=== PATIENT | female | born 1975 | race Caucasian/White ===

== ENCOUNTER 2020-08-14 14:19 | Emergency (ER) | payer OTHER, SELFPAY ==
--- NOTE | ~2020-08-14 | XR_ITS ---
EXAMINATION: XR CHEST CLINICAL INFORMATION: Shortness of breath COMPARISON: 08/23/2015 TECHNIQUE: Frontal view of the chest was obtained. FINDINGS: No significant abnormality is noted involving the heart, lungs, mediastinum, bony thorax or soft tissues. XR/XR chest 1V IMPRESSION: Unremarkable examination.
[2020-08-14 14:21] VITALS: BP 122/68; PULSE 94; RESP 16; TEMP 36.8; O2SAT 100; BMI 27.8
--- NOTE | 2020-08-14 15:51 | ECG_ITS ---
Test Reason : SOB Blood Pressure : / mmHG Vent. Rate : 070 BPM Atrial Rate : 070 BPM P-R Int : 126 ms QRS Dur : 082 ms QT Int : 378 ms P-R-T Axes : 041 043 043 degrees QTc Int : 408 ms Normal sinus rhythm Normal ECG When compared with ECG of 30-APR-2011 02:50, No significant change was found Referred By: Georgina Macario Electronically Signed By:GILBERTO TAYLOR
--- NOTE | 2020-08-14 15:53 | ED_ITS ---
HPI - SOB/Dyspnea General Chief Complaint: Dyspnea Stated Complaint: SOB Time Seen by Provider: 08/14/20 15:16 Source: patient Mode of arrival: ambulatory Limitations: no limitations History of Present Illness HPI Narrative: Patient comes emergency room complaining of shortness of breath. Patient states it started 1 month ago when she was diagnosed with COVID. Since then, patient states that she feels that she cannot catch a full breath, gets worse with exertion. Patient denies chest pain, no dizziness. MD elicited complaint: shortness of breath Related Data Home Medications Medication Instructions Recorded Confirmed cyanocobalamin (vitamin B-12) 1,000 mcg PO DAILY 03/11/20 03/11/20 [Vitamin B-12] ferrous sulfate 325 mg PO DAILY 03/11/20 03/11/20 Allergies Allergy/AdvReac Type Severity Reaction Status Date / Time acetaminophen [Percocet] Allergy Unknown Increased Verified 03/11/20 16:36 heart rate, itchy oxycodone [From Percocet] Allergy Unknown ITCHING Verified 03/11/20 16:36 Review of Systems Review of Systems: Constitutional : No Weight loss, No Fever, No Chills, No Night Sweats, No Fatigue, No Malaise ENT/Mouth : No Hearing loss, No Ear Pain, No Nasal Congestion, No Sinus Pain, No Hoarseness, No sore throat, No Rhinorrhea, No Swallowing Difficulty Eyes: No Eye Pain, No Swelling, No Redness, No Foreign Body, No Discharge, No Vision Changes Cardiovascular : No Chest Pain, No SOB, No Dyspnea on Exertion, No Orthopnea, No Edema, No Palpitations Respiratory : No Cough, No Sputum, No Wheezing, No Smoke Exposure, complaining of chronic dyspnea Gastrointestinal : No Nausea, No Vomiting, No Diarrhea, No Constipation, No abdominal Pain, No Hematochezia, No Melena Genitourinary : no irregular bleeding, No Dysuria, No Urinary Frequency, No Hematuria, No Urinary Incontinence, No Urgency, No Flank Pain, No Urinary Flow Changes, No Hesitancy Musculoskeletal : No joint pain, No Myalgias, No Joint Swelling Skin : No Skin Lesions, No rash Neuro : No Weakness, No Numbness, No Paresthesias, No Loss of Consciousness, No Dizziness, No Headache Psych : No Anxiety/Panic, No Depression, No SI/HI/AH/VH, No Social Issues, Heme/Lymph: No Bruising, No Bleeding,No Lymphadenopathy Endocrine : No Polyuria, No Polydipsia, No Temperature Intolerance [facility] Past Medical History Medical History COVID-19 Low iron Social History Social History Advance Directives: No Advance Directives Information Provided: Yes Physical Exam Vital Signs: Vital Signs: Last Vital Signs Temp 97.9 F 08/14/20 16:18 Pulse 77 08/14/20 16:18 Resp 18 08/14/20 16:18 BP 103/64 08/14/20 16:18 Pulse Ox 98 08/14/20 16:18 Body Mass Index 27.8 Appearance: Alert. Oriented X3. No acute distress. Eyes: Pupils equal, round and reactive to light. ENT: Pharynx normal. Neck: Normal inspection. Neck supple. No lymph nodes noted. No crepitus CVS: Normal heart rate and rhythm. Pulses normal. Normal S1 and S2 Respiratory: No respiratory distress. Breath sounds normal. No Wheezing. No rales Abdomen: Soft and nontender. No rigidity. No distention. good BS x4 Skin: Skin warm and dry. Normal skin color. Normal skin turgor. Extremities: No lower extremity edema. No lower extremity edema. No Lacerations. No Rash Neuro: Oriented X 3. No motor deficit. No sensory deficit. Moving all extermities. No slurred speech. Course Course Course Narrative: Patient's labs are pending. Depending on the D-dimer result, patient may need a CTA for PE study. Otherwise, patient likely to be discharged home. Sign-out given to Dr. Dey MDM - SOB/Dyspnea Lab Data Result diagrams: 08/14/20 16:07 08/14/20 16:07 Labs: Lab Results 08/14/20 Range/Units 16:07 WBC 4.6 L (4.8-10.8) X10*3/uL RBC 4.58 (4.20-5.50) X10*6/uL Hgb 13.9 (12.0-16.0) g/dl Hct 42.8 (37-47) % MCV 93.4 (80-98) fL MCH 30.3 (27.0-33.0) pg MCHC 32.5 (31.0-35.0) g/dl RDW 11.6 (11.0-16.0) % Plt Count 249 D (160-400) X10*3/uL MPV 10.5 (9.4-12.3) fL Immature Gran % (Auto) 0.7 H (0.0-0.4) % Neut % (Auto) 72.8 (45-73) % Lymph % (Auto) 18.1 L (20-40) % [place] % (Auto) 7.8 (2-11) % Eos % (Auto) 0.4 (0-4) % Baso % (Auto) 0.2 (0-2) % Lymph # (Auto) 0.8 L (1.2-4.9) X10*3/uL [place] # (Auto) 0.4 (0.1-1.2) X10*3/uL Eos # (Auto) 0.0 (0.0-0.4) X10*3/uL Baso # (Auto) 0.0 (0.0-0.2) X10*3/uL Abs Immat Gran (auto) 0.03 (0.00-0.03) X10*3/uL Absolute Neuts (auto) 3.3 (2.0-8.3) X10*3/uL Absolute Nucleated RBC 0.000 (0.0-0.012) X10*3/uL Nucleated RBC % (auto) 0.0 (0.0-0.2) /100WBC Imaging Data Chest x-ray: Radiologist's impression: FINDINGS: No significant abnormality is noted involving the heart, lungs, mediastinum, bony thorax or soft tissues. XR/XR chest 1V IMPRESSION: Unremarkable examination ECG Data Attestation: I personally reviewed and interpreted this ECG as follows: (Sinus rhythm, heart rate 70, no ST segment depressions or elevations, no T-wave inversions) Discharge Plan Discharge Clinical Impression: Chronic dyspnea Prescriptions: No Action cyanocobalamin (vitamin B-12) [Vitamin B-12] 1,000 mcg tablet 1,000 mcg PO DAILY RF: 0 ferrous sulfate 325 mg (65 mg iron) tablet 325 mg PO DAILY RF: 0
[2020-08-14 16:12] LABS: MANUAL DIFF FLAG NO
[2020-08-14 16:14] LABS: Basophils Percent Auto 0.2 % (0-2); Eosinophils Percent Auto 0.4 % (0-4); Hematocrit 42.8 % (37-47); Hemoglobin 13.9 g/dl (12.0-16.0); Imm Gran Abs Auto 0.03 X10*3/uL (0.00-0.03); Imm Gran Pct Auto 0.7 % (0.0-0.4); Lymphocytes Absolute Auto 0.8 X10*3/uL (1.2-4.9); Lymphocytes Percent Auto 18.1 % (20-40); Mean Corpuscular HGB Conc 32.5 g/dl (31.0-35.0); Mean Corpuscular Hemoglobin 30.3 pg (27.0-33.0); Mean Corpuscular Volume 93.4 fL (80-98); Mean Platelet Volume 10.5 fL (9.4-12.3); Monocytes Absolute Auto 0.4 X10*3/uL (0.1-1.2); Monocytes Percent Auto 7.8 % (2-11); Neutrophils Absolute Auto 3.3 X10*3/uL (2.0-8.3); Neutrophils Percent Auto 72.8 % (45-73); Platelet Count 249 X10*3/uL (160-400); Red Blood Count 4.58 X10*6/uL (4.20-5.50); Red Cell Distribution Width 11.6 % (11.0-16.0); White Blood Count 4.6 X10*3/uL (4.8-10.8)
[2020-08-14 16:18] VITALS: BP 103/64; PULSE 77; RESP 18; TEMP 36.6; O2SAT 98
[2020-08-14 16:30] LABS: D Dimer 228 NG/ML
[2020-08-14 16:40] LABS: Anion Gap 10 (12-20); Blood Urea Nitrogen 8 mg/dL (9-16); Calcium 8.5 mg/dL (8.4-10.2); Carbon Dioxide 30 mmol/L (22-29); Chloride 105 mmol/L (96-108); Creatinine Clr Calc Pharmacy 137.3; Estimated Glomerular Filt Rate > 60; Glucose Random 71 mg/dL (60-115); Potassium 4.2 mmol/L (3.3-5.1); Sodium 141 mmol/L (135-145)
[2020-08-14 16:49] LABS: B Type Natriuretic Peptide 89 pg/mL (<100)
[2020-08-14 17:05] LABS: Influenza A PCR NEGATIVE (Negative); Influenza B PCR NEGATIVE (Negative); Resp Syncy Virus RNA Qual PCR NEGATIVE (Negative); SARS COV2 PCR INHOUSE POSITIVE (Negative)
[2020-08-14] MEDS: dexAMETHasone 6 MG TABLET PO (18:14)
[2020-08-14 18:28] LABS: C Reactive Protein 0.13 mg/dL (< or = 0.50); Lactate Dehydrogenase 178 U/L (122-220)
== END 2020-08-14 18:16 | disposition home or self-care (01) ==
PROVIDERS: Internal Medicine; Emergency Provider Emergency Medicine; PCP Physician Assistant
DX: U07.1 COVID-19 (principal); R06.00 Dyspnea, unspecified
CPT/HCPCS: 0241U; 36415; 71045; 80048; 83615; 83880; 85025; 85379; 86140; 93005; 99283; J8540

== ENCOUNTER → 2020-09-16 15:30 | Outpatient (BNV) | payer OTHER, SELFPAY | PROVIDERS: PCP Physician Assistant; Visit Provider Internal Medicine Medical Oncology | DX: D64.9 Anemia, unspecified (principal); D61.818 Other pancytopenia | CPT/HCPCS: 99213; 99214 ==

== ENCOUNTER 2021-01-13 11:31 | Outpatient (REF) | payer OTHER, SELFPAY ==
--- NOTE | ~2021-01-13 | XR_ITS ---
EXAMINATION: XR LUMBOSACRAL SPINE CLINICAL INFORMATION: Low back pain. COMPARISON: CT abdomen and pelvis 04/13/2008. TECHNIQUE: Three views of the lumbosacral spine. FINDINGS: There is normal lumbar segmentation with 5 nonrib-bearing lumbar vertebrae of normal height and normal lumbar lordosis. There is no lumbar vertebral compression, spondylolisthesis, or destructive process. There is borderline disc narrowing L3-L4 with borderline anterior vertebral spur. No erosive change. Visualized sacrum and SI joints are unremarkable. XR/XR lumbar spine 2-3V IMPRESSION: 1. No lumbar vertebral compression or spondylolisthesis. 2. Borderline disc narrowing L3-L4. No erosive change.
--- NOTE | ~2021-01-13 | XR_ITS ---
EXAMINATION: XR SACROILIAC JOINTS CLINICAL INFORMATION: Sacrococcygeal disorders, not elsewhere classified. Low back pain. COMPARISON: Radiographs lumbar spine 01/13/2021, CT abdomen and pelvis 04/13/2008 TECHNIQUE: 3 views of the sacroiliac joints FINDINGS: There is normal bony mineralization. No fracture. No destructive process. The SI joints show no erosive change or subchondral sclerosis or ankylosis. No diastasis. Some fine chain melissa are present right lower quadrant abdomen. XR/XR sacroiliac joint 1-2V IMPRESSION: Normal sacroiliac joints.
--- NOTE | ~2021-01-13 | XR_ITS ---
EXAMINATION: XR KNEE, RIGHT XR KNEE, LEFT CLINICAL INFORMATION: Knee pain. COMPARISON: Standing AP knees radiograph 01/06/2019, radiographs right knee 11/12/2018. TECHNIQUE: Each knee is imaged in 4 views. There are total of 8 views. FINDINGS: Right: There is no fracture, dislocation, destructive process. No knee joint compartment narrowing or erosive change or chondrocalcinosis. Hoffa's fat pad appears normal. There is stable mineralization anterior joint possibly a dilatation in the transverse meniscal ligament, stable from prior exam 2019. There is a small round benign calcification in the anterior soft tissues, also noted on the contralateral side. The deep infrapatellar recess is preserved. Left: There is no fracture, dislocation, destructive process. There is no joint narrowing or erosive change. Moderate chondrocalcinosis involves the medial and lateral menisci, also noted in 2019. There is no suprapatellar effusion. Hoffa's fat pad is unremarkable. There are some benign round calcifications in the anterior knee soft tissues. XR/XR knee LT 4V IMPRESSION: 1. Right: No joint narrowing or erosive change. No effusion. 2. Left: Chronic meniscal chondrocalcinosis is similar to 2019. No interval joint narrowing, erosive change, or effusion.
--- NOTE | ~2021-01-13 | XR_ITS ---
EXAMINATION: XR KNEE, RIGHT XR KNEE, LEFT CLINICAL INFORMATION: Knee pain. COMPARISON: Standing AP knees radiograph 01/06/2019, radiographs right knee 11/12/2018. TECHNIQUE: Each knee is imaged in 4 views. There are total of 8 views. FINDINGS: Right: There is no fracture, dislocation, destructive process. No knee joint compartment narrowing or erosive change or chondrocalcinosis. Hoffa's fat pad appears normal. There is stable mineralization anterior joint possibly a dilatation in the transverse meniscal ligament, stable from prior exam 2019. There is a small round benign calcification in the anterior soft tissues, also noted on the contralateral side. The deep infrapatellar recess is preserved. Left: There is no fracture, dislocation, destructive process. There is no joint narrowing or erosive change. Moderate chondrocalcinosis involves the medial and lateral menisci, also noted in 2019. There is no suprapatellar effusion. Hoffa's fat pad is unremarkable. There are some benign round calcifications in the anterior knee soft tissues. XR/XR knee RT 4V IMPRESSION: 1. Right: No joint narrowing or erosive change. No effusion. 2. Left: Chronic meniscal chondrocalcinosis is similar to 2019. No interval joint narrowing, erosive change, or effusion.
--- NOTE | ~2021-01-13 | XR_ITS ---
EXAMINATION: XR FOOT, RIGHT CLINICAL INFORMATION: Pain in right foot. COMPARISON: None. TECHNIQUE: AP, lateral, and oblique views of the right foot. FINDINGS: Normal bony mineralization. No acute or healing fracture, dislocation, or destructive process. There is no focal joint narrowing or erosive change. The retrocalcaneal recess is preserved. The subtalar joint is unremarkable. XR/XR foot RT 2V IMPRESSION: Normal right foot.
== END 2021-01-13 11:32 | disposition home or self-care (01) ==
LOC: HO.XRAY 11:31
PROVIDERS: PCP Physician Assistant; Visit Provider Physician Assistant
DX: M79.671 Pain in right foot (principal); M25.561 Pain in right knee; M25.562 Pain in left knee; M54.5 Low back pain; M53.3 Sacrococcygeal disorders, not elsewhere classified
CPT/HCPCS: 72100; 72200; 73564; 73620

== ENCOUNTER 2021-05-03 14:15 | Emergency (ER) | payer OTHER, SELFPAY ==
--- NOTE | ~2021-05-03 | XR_ITS ---
EXAMINATION: XR HAND, RIGHT CLINICAL INFORMATION: Thumb injury COMPARISON: None TECHNIQUE: PA, lateral, and oblique views of the right hand. FINDINGS: The bones and soft tissues are normal. No fracture. Alignment is anatomic. Joint spaces are maintained. No erosions or soft tissue calcifications. XR/XR hand RT 2V IMPRESSION: Normal right hand.
[2021-05-03 15:48] VITALS: BP 126/74; PULSE 92; RESP 18; TEMP 36.3; O2SAT 100; BMI 29.9
[2021-05-03] MEDS: Ibuprofen 600 MG TABLET PO (15:54)
[2021-05-03 16:55] VITALS: BP 124/71; PULSE 77; RESP 16; O2SAT 98
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
== END 2021-05-03 17:40 | disposition home or self-care (01) ==
PROVIDERS: Emergency Provider Internal Medicine; PCP Physician Assistant
DX: S39.92XA Unspecified injury of lower back, initial encounter (principal); S69.91XA Unspecified injury of right wrist, hand and finger(s), initial encounter; V43.02XA Car driver injured in collision with other type car in nontraffic accident, initial encounter; Y93.9 Activity, unspecified; Y92.9 Unspecified place or not applicable; Y99.9 Unspecified external cause status; Z79.899 Other long term (current) drug therapy; Z87.891 Personal history of nicotine dependence
CPT/HCPCS: 73120; 99283; 99284

== ENCOUNTER 2021-07-28 08:38 | Outpatient (REF) | payer OTHER, SELFPAY ==
--- NOTE | ~2021-07-28 | MM_ITS ---
EXAMINATION: MM SCREENING DIGITAL BREAST TOMOSYNTHESIS, BILATERAL CLINICAL INFORMATION: Screening. Asymptomatic. The lifetime risk of breast cancer based on the Tyrer-Cuzick Model is 7%. COMPARISON: Mammography: 06/15/2016 TECHNIQUE: Digital breast tomosynthesis is performed in both the craniocaudal and mediolateral oblique views along with computer-aided detection (CAD). Synthesized 2D images are generated from the tomosynthesis. (Baseline) FINDINGS: The breasts are heterogeneously dense, which may obscure small masses (ACR BI-RADS breast composition Category c). There are no significant masses, abnormal calcifications, or other abnormalities. Parenchymal distribution is similar to baseline exam. No interval mass or architectural abnormality. No suspicious changes. MM/MM tomosynthesis screening BI IMPRESSION: No mammographic evidence of malignancy. ASSESSMENT: BI-RADS 1: Negative RECOMMENDATION: Routine annual mammography screening. This patient's information was entered into a reminder system with a target due date for their next mammogram.
== END 2021-07-28 08:39 | disposition home or self-care (01) ==
LOC: HO.MAMMO 08:38
PROVIDERS: PCP Physician Assistant; Visit Provider Physician Assistant
DX: Z12.31 Encounter for screening mammogram for malignant neoplasm of breast (principal)
CPT/HCPCS: 77063; 77067

== ENCOUNTER 2021-08-24 15:17 | Outpatient (REF) | payer OTHER, SELFPAY ==
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
--- NOTE | ~2021-08-24 | XR_ITS ---
EXAMINATION: XR cervical spine min 6V, XR lumbar spine 4V min CLINICAL INFORMATION: Trauma, pain COMPARISON: None TECHNIQUE: 5 views of the cervical spine and 5 views of the lumbar spine XR/XR cervical spine min 6V FINDINGS/IMPRESSION: CERVICAL SPINE: The cervical spine is visualized to the level of C7 on the lateral view. Loss of the usual cervical spine lordosis which may be due to positioning or muscle spasm. Vertebral body heights are maintained. Lateral masses of C1 are well aligned on C2. Visualized portion of the dens is intact. Mild degenerative disc disease at C6-C7, manifested by borderline loss of disc space height, facet arthropathy and a small anterior disc osteophyte complex.. Uncovertebral hypertrophy and facet arthropathy results in mild neural foraminal narrowing on the right at C3-C4. No prevertebral soft tissue swelling. LUMBAR SPINE: 5 nonrib-bearing lumbar-type vertebral bodies. Vertebral body heights are maintained. Minimal dextroconvex curvature of the thoracolumbar spine. Possible right L5 pars defect, which could be confirmed with CT if warranted. Minimal degenerative disc disease at L5-S1 with borderline loss of disc space height and facet arthropathy. Left upper abdominal surgical clips.
--- NOTE | ~2021-08-24 | XR_ITS ---
EXAMINATION: XR shoulder RT min 2V CLINICAL INFORMATION: Reason for Exam IMPINGEMENT SYNDROME OF RIGHT SHOULDER COMPARISON: None TECHNIQUE: Four views of the shoulder. XR/XR shoulder RT min 2V FINDINGS/IMPRESSION: No acute fracture or dislocation. Mild degenerative changes of the acromioclavicular joint with borderline loss of joint space. Glenohumeral joint space is maintained. Soft tissues are unremarkable. Visualized portion of lung appears clear.
== END 2021-08-24 15:18 | disposition home or self-care (01) ==
LOC: HO.XRAY 15:17
PROVIDERS: PCP Physician Assistant; Visit Provider Student in an Organized Health Care Education/Training Program
DX: M54.50 Low back pain, unspecified (principal); M75.41 Impingement syndrome of right shoulder; M54.2 Cervicalgia
CPT/HCPCS: 72052; 72110; 73030

== ENCOUNTER 2022-07-31 09:54 | Outpatient (REF) | payer OTHER, SELFPAY ==
--- NOTE | ~2022-07-31 | MM_ITS ---
EXAMINATION: MM SCREENING DIGITAL BREAST TOMOSYNTHESIS, BILATERAL CLINICAL INFORMATION: Screening. Asymptomatic. The lifetime risk of breast cancer based on the Tyrer-Cuzick Model is 10%. COMPARISON: Mammography: 07/28/2021, 06/15/2016 TECHNIQUE: Digital breast tomosynthesis is performed in both the craniocaudal and mediolateral oblique views along with computer-aided detection (CAD). Synthesized 2D images are generated from the tomosynthesis. FINDINGS: The breasts are heterogeneously dense, which may obscure small masses (ACR BI-RADS breast composition Category c). There are no significant masses, abnormal calcifications, or other abnormalities. No architectural abnormality or developing density or significant change from prior studies. The axilla and skin contours are unremarkable. MM/MM tomosynthesis screening BI IMPRESSION: No mammographic evidence of malignancy. ASSESSMENT: BI-RADS 1: Negative RECOMMENDATION: Routine annual mammography screening. This patient's information was entered into a reminder system with a target due date for their next mammogram.
== END 2022-07-31 09:55 | disposition home or self-care (01) ==
LOC: HO.MAMMO 09:54
PROVIDERS: PCP Physician Assistant; Visit Provider Physician Assistant
DX: Z12.31 Encounter for screening mammogram for malignant neoplasm of breast (principal)
CPT/HCPCS: 77063; 77067

== ENCOUNTER 2022-10-30 12:54 | Outpatient (REF) | payer OTHER, SELFPAY ==
--- NOTE | ~2022-10-30 | US_ITS ---
EXAMINATION: US RETROPERITONEAL COMPLETE (RENAL) CLINICAL INFORMATION: Dysuria and right flank pain. COMPARISON: None available. TECHNIQUE: Real-time imaging of the kidneys and bladder. FINDINGS: RIGHT KIDNEY: 13.4 x 4.7 x 5.9 cm (SAG x AP x TRV). The kidney is normal in size, contour, and echogenicity. Renal cortical thickness is normal. No calculi or focal parenchymal lesions. No hydronephrosis. LEFT KIDNEY: 12.5 x 5.8 x 6.2 cm (SAG x AP x TRV). The kidney is normal in size, contour, and echogenicity. Renal cortical thickness is normal. No calculi or focal parenchymal lesions. No hydronephrosis. BLADDER: Well distended and normal. Bilateral ureteral jets are demonstrated. Prevoid bladder volume is 184 mL. Postvoid bladder volume is 17 mL. Thickened heterogeneous endometrium. Endometrial thickness measures 2.2 cm. There are small central cystic areas. US/US retroperitoneal comp IMPRESSION: Normal renal and bladder ultrasound. Abnormally thickened heterogeneous endometrium. Follow-up pelvic ultrasound recommended..
== END 2022-10-30 12:55 | disposition home or self-care (01) ==
LOC: HO.HMGCX 12:54
PROVIDERS: PCP Physician Assistant; Visit Provider Nurse Practitioner Family
DX: R30.0 Dysuria (principal); R10.9 Unspecified abdominal pain
CPT/HCPCS: 76770

== ENCOUNTER 2022-11-07 11:53 | Outpatient (REF) | payer OTHER, SELFPAY ==
[2022-11-09 22:54] LABS: HPV mRNA E6/E7 rflx Not Detected (Not Detected)
== END 2022-11-07 11:54 | disposition home or self-care (01) ==
LOC: HO.LNP 11:53
PROVIDERS: PCP Physician Assistant; Visit Provider Obstetrics & Gynecology
DX: Z12.4 Encounter for screening for malignant neoplasm of cervix (principal); Z11.51 Encounter for screening for human papillomavirus (HPV); N85.00 Endometrial hyperplasia, unspecified; R93.5 Abnormal findings on diagnostic imaging of other abdominal regions, including retroperitoneum
CPT/HCPCS: 87624; 88142; 99202

== ENCOUNTER 2022-11-30 10:47 | Outpatient (REF) | payer OTHER, SELFPAY ==
--- NOTE | ~2022-11-30 | US_ITS ---
EXAMINATION: US PELVIS CLINICAL INFORMATION: Endometrial hyperplasia. COMPARISON: None available. TECHNIQUE: Ultrasound of the pelvis is performed using both transabdominal and transvaginal transducers along with Doppler. Transvaginal imaging is performed due to inadequate visualization transabdominally. FINDINGS: Uterus: The uterus is anteverted and measures 9.1 x 5.2 x 6.5 cm. The double wall endometrial thickness is 2.8 cm. The endometrial stripe is heterogeneous in echotexture. A 1.5 x 1.1 x 1.5 cm heterogeneous echotexture endometrial polyp is seen, with associated color Doppler flow. The uterus is smooth in contour and has normal myometrial echogenicity. Multiple nabothian cysts are seen within the cervix. Within the anterior upper body, a 6 x 4 x 4 mm hypoechoic fibroid is noted. Adnexa: Both ovaries are visualized. There is normal color flow to the adnexa. There is no ovarian torsion. There is no pelvic ascites or fluid collection. A 1.5 cm right ovarian simple paraovarian cyst is noted. Right ovary measures 2.2 x 1.6 x 1.6 cm, volume 3.0 mL. Left ovary measures 3.7 x 1.7 x 1.4 cm, volume 4.6 mL. US/US pelvic and transvaginal IMPRESSION: 1. A 1.5 cm endometrial polyp is seen, which may represent a hyperplastic polyp, focal endometrial hyperplasia, a subendometrial fibroid or other neoplasm. Recommend Gynecology evaluation management, with consideration for tissue sampling, if clinically appropriate. 2. There is endometrial stripe thickening to 2.8 cm. Again, Gynecology evaluation and management is recommended, with consideration for tissue sampling, if clinically appropriate. 3. A 6 mm uterine fibroid is seen. 4. Multiple Nabothian cysts are seen within the cervix. 5. A 1.5 cm right paraovarian cyst is noted.
== END 2022-11-30 10:48 | disposition home or self-care (01) ==
LOC: HO.US 10:47
PROVIDERS: PCP Physician Assistant; Visit Provider Physician Assistant
DX: N85.00 Endometrial hyperplasia, unspecified (principal)
CPT/HCPCS: 76830; 76856

== ENCOUNTER 2022-12-06 10:23 | Outpatient (REF) | payer OTHER, SELFPAY | END 2022-12-06 10:24 | disposition home or self-care (01) | LOC: HO.LNP 10:23 | PROVIDERS: PCP Physician Assistant; Visit Provider Obstetrics & Gynecology | DX: R87.615 Unsatisfactory cytologic smear of cervix (principal); N84.0 Polyp of corpus uteri; D25.9 Leiomyoma of uterus, unspecified | CPT/HCPCS: 88142; 99212 ==

== ENCOUNTER 2022-12-15 08:10 | Outpatient (REF) | payer OTHER, SELFPAY ==
[2022-12-15 11:48] LABS: Alanine Aminotransferase 19 U/L (0-31); Alkaline Phosphatase 114 U/L (39-117); Anion Gap 13 (12-20); Aspartate Amino Transferase 22 U/L (5-31); Bilirubin Total 1.1 mg/dL (0.0-1.0); Blood Urea Nitrogen 13 mg/dL (9-16); Calcium 9.1 mg/dL (8.4-10.2); Carbon Dioxide 24 mmol/L (22-29); Chloride 108 mmol/L (96-108); Cholesterol 162 mg/dL; Estimated Glomerular Filt Rate > 60; Glucose Fasting 98 mg/dL (60-99); HDL Cholesterol 58 mg/dL; Iron 37 mcg/dL (30-160); LDL Cholesterol Calculated 86 mg/dl; Percent Iron Saturation 10 % (15-50); Sodium 141 mmol/L (135-145); Total Iron Binding Capacity 377 mcg/dL (228-428); Total Protein 7.2 g/dL (6.5-8.0); Triglycerides 92 mg/dL; Unsaturated Iron Binding 340 ug/dL
[2022-12-15 11:57] LABS: TSH reflex Free T4 1.77 uIU/mL (0.32-4.0)
== END 2022-12-15 08:11 | disposition home or self-care (01) ==
LOC: HO.LAB 08:10
PROVIDERS: PCP Physician Assistant; Visit Provider Physician Assistant
DX: D50.9 Iron deficiency anemia, unspecified (principal); Z13.1 Encounter for screening for diabetes mellitus; Z13.29 Encounter for screening for other suspected endocrine disorder; Z13.220 Encounter for screening for lipoid disorders
CPT/HCPCS: 36415; 80053; 80061; 83540; 84443; 85027

== ENCOUNTER 2022-12-18 14:10 | Outpatient (AMB) | payer OTHER, SELFPAY ==
[2022-12-18 14:13] VITALS: BP 110/66; PULSE 81; O2SAT 99; BMI 30.1
--- NOTE | 2022-12-18 14:13 | MHC.PC.OV ---
Vital Signs 12/18/22 14:13 Height 5 ft 11 in Weight 216 lb BMI 30.1 BP 110/66 Blood Pressure Location Lt brachial Position Sitting Pulse 81 Pulse Source Pulse Oximeter Temp Source Skin Pulse Oximetry (%) 99 Oxygen Delivery Method Room Air Intake Visit Reasons: f/u anemia Intake Note: Patient is here to follow up on anemia It Help Desk Associate Required: No Allergies acetaminophen [Percocet] Allergy (Intermediate, Verified 12/18/22 14:34) Increased heart rate, itchy oxycodone [From Percocet] Allergy (Intermediate, Verified 12/18/22 14:34) ITCHING Medication List - Last Reconciled 12/18/22 by Kadeem Jones PA-C ferrous sulfate 325 mg PO DAILY fexofenadine-pseudoephedrine 180-240 mg ER (Shavon-D 24 Hour) 1 tab PO QAM 30 days phenazopyridine (Pyridium) 100 mg PO TID PRN 6 doses Tobacco use date assessed: 12/18/22 Dental Screening Dental Screen Date: 12/18/22 HPI f/u anemia HPI Details Patient is a 46-year-old female here today for a follow-up visit l.? Patient has a past history significant iron deficiency anemia, obesity, cervical disc diseasey, endometrial polyp. Is due for uterine surgery with Weld billet grinder due to her endometrial polyp in thick endometrium. Concern--> reports having some left-sided hearing deficit. .. Anemia: Followed by hematology , most recent CBCs showing a slightly low RBCs and hemoglobin.? Does admit to not being consistent with the use of iron supplementation.? Does report feeling somewhat tired as of lately. .. PFSH Medical History COVID-19 Left knee pain Low iron Surgical History H/O tubal ligation Hx of appendectomy Family History Maternal Aunt Diabetes Liver cancer Father Diabetes Social History Household Members: Spouse and Children Housing: House Are you a primary long term care social worker to a significant other at home: No Do you presently have visiting nurse or other home services: No Alcohol intake: former Patient Tobacco Use Status: Former Tobacco user Quit Date: 2006 Tobacco use type: Cigarette Cigarette Packs Per Day: 0.5 e-Cigarette/Vaping Use: Never Used Second Hand Smoke Exposure: No service: No Current occupational status: employed Current occupation: [employer] Cognitive needs: No Hearing needs: No Vision needs: No Questionnaire PHQ-9 Over the last 2 weeks, how often have you been bothered by any of the following problems? 1. Little interest or pleasure in doing things: not at all 2. Feeling down, depressed, or hopeless: not at all 3. Trouble falling or staying asleep, or sleeping too much: not at all 4. Feeling tired or having little energy: not at all 5. Poor appetite or overeating: not at all 6. Feeling bad about yourself - or that you are a failure or have let yourself or your family down: not at all 7. Trouble concentrating on things, such as reading the newspaper or watching television: not at all 8. Moving or speaking so slowly that other people could have noticed. Or the opposite - being so fidgety or restless that you have been moving around a lot more than usual: not at all 9. Thoughts that you would be better off or of hurting yourself in some way: not at all Total score: 0 Depression Screening Interpretation: Negative 13708 - PHQ-9 Billing: Yes Source: Developed by Drs. Chino Cottrell, Margie Weller, Elliot Bella and colleagues, with an educational chandler from [employer]. Thrive Questionnaire Date Thrive assessed: 12/18/22 I am a: Patient What is your living situation today?: I have a steady place to live Within the past 12 months, did the food you bought not last and you didn't have the money to get more?: Never true Within the past 12 months, did you worry whether your food would run out before you got money to buy more?: Never true AUDIT C Alcohol Use Questionnaire (AUDIT-C) 1. How often do you have a drink containing alcohol?: Never 3. How often do you have six or more drinks on one occasion?: Never Total Score: 0 MIRZA-7 AMB Questionnaire MIRZA-7 Date MIRZA - 7 assessed: 12/18/22 Feeling nervous, anxious, or on edge: 0 = Not at all Not being able to stop or control worryin = Not at all Worrying too much about different things: 0 = Not at all Trouble relaxin = Not at all Being so restless that it is hard to sit still: 0 = Not at all Becoming easily annoyed or irritable: 0 = Not at all Feeling afraid as if something awful might happen: 0 = Not at all Total MIRZA-7 score (0-4 normal; 5-9 mild; 10-14 moderate; 15-21 severe): 0 Source: Developed by Drs. Chino Cottrell, Margie Weller, Elliot Bella and colleagues, with an educational chandler from [employer]. MIRZA-7 Assessment Billing MIRZA-7 Assessment Tool: MIRZA-7 Assessment 26296 Review of Systems Const Denies headache(s) Eyes Denies loss of vision ENT Denies vertigo, Denies dizziness, Denies headache(s) and Denies sore throat Card Denies chest pain, Denies leg edema and Denies lightheadedness Resp Denies cough, Denies hemoptysis and Denies wheezing GI Denies abdominal pain, Denies melena, Denies constipation, Denies diarrhea and Denies vomiting Denies urinary frequency, Denies dysuria and Denies urinary urgency Musc Denies arthralgias, Denies joint swelling, Denies numbness and Denies tingling Neuro Denies Abnormal speech present, Denies behavioral changes, Denies vertigo, Denies dizziness, Denies headache(s), Denies loss of vision, Denies memory loss, Denies numbness and Denies tingling Psych Denies anxiety, Denies behavioral changes, Denies depression, Denies memory loss and Denies panic attacks Marshall/Lymph Denies easy bleeding and Denies easy bruising Aller/Immun Denies wheezing Physical exam (Primary Care) Vital Signs: Last Vital Signs Pulse 81 12/18/22 14:13 BP 110/66 12/18/22 14:13 Pulse Ox 99 12/18/22 14:13 Oxygen Delivery Method Room Air 12/18/22 14:13 BMI result Body Mass Index 30.1 Tobacco/Smoking Status: Tobacco use Status Tobacco use date assessed 12/18/22 12/18/22 14:15 Patient Tobacco Use Status Former Tobacco user 12/18/22 14:15 Tobacco use type Cigarette 12/18/22 14:15 e-Cigarette/Vaping Use Never Used 12/18/22 14:15 PHQ-9: PHQ-9 Score PHQ-9: Total score 0 12/18/22 14:15 Depression Screening Interpretation: Negative Thrive Assessment: Date of Thrive Assessment Date Thrive assessed 12/18/22 12/18/22 14:15 Const General: healthy appearing, no acute distress, alert and awake Nutritional Appearance: well nourished Orientation/consciousness: oriented to person, oriented to place and oriented to time HENMT Ears: TM's normal bilaterally General nose exam: Normal nasal mucous membranes and turbinates present Eyes Conjunctivae: conjunctivae normal Sclerae: sclerae normal Pupils: Equal, round and reactive pupils present Neck Neck: Yes no lymphadenopathy and Yes no JVD Thyroid: Thyroid normal Carotids: no bruits Resp Effort & Inspection: normal respiratory effort and not tachypneic Auscultation: no crackles, no rales, no rhonchi and no wheezes Cardio Rate: regular rate Rhythm: regular rhythm Heart sounds: no murmurs and normal S1 and S2 GI Palpation (GI): Soft to palpation, nontender, no hepatomegaly and no splenomegaly Auscultation: normal bowel sounds Skin General skin exam: no rashes or lesions noted and dry skin Neuro General: oriented to person, oriented to place and oriented to time Cranial nerves: Yes Equal, round and reactive pupils present Speech: No Abnormal speech present Gait exam (Neuro): Normal gait present Motor exam (neuro): no tremor noted Extrem Right upper extremity: full ROM Left upper extremity: full ROM Right lower extremity: full ROM; no edema Left lower extremity: full ROM; no edema Psych Mental Status: mental status grossly normal Speech and movement: Normal speech and movement present Affect: normal affect Attitude: cooperative Thought process: Normal thought process present Assessment and Plan Assessment & Plan (1) Anemia: Code(s): D64.9 - Anemia, unspecified Qualifiers: Anemia type: iron deficiency Iron deficiency anemia type: other iron deficiency Qualified Code(s): D50.8 - Other iron deficiency anemias Plan: Patient continues to be slightly anemic. Iron level on lower side of normal. She reports over last 2 weeks feeling somewhat fatigued. She does admit to not taking iron on a daily basis. She will try to take iron on a daily basis to see if her energy comes back. (2) Left SNHL: Code(s): H90.5 - Unspecified sensorineural hearing loss Qualifiers: Contralateral hearing status: unrestricted hearing on contralateral side Qualified Code(s): H90.42 - Sensorineural hearing loss, unilateral, left ear, with unrestricted hearing on the contralateral side Plan: Does report left-sided decreased hearing would like to get hearing exam. (3) Cervical myelopathy: Code(s): G95.9 - Disease of spinal cord, unspecified Plan: Has resolved since surgery in physical therapy. (4) Uterine myoma: Code(s): D25.9 - Leiomyoma of uterus, unspecified Qualifiers: Uterine leiomyoma location: unspecified location Qualified Code(s): D25.9 - Leiomyoma of uterus, unspecified Plan: Patient is scheduled for surgery for removal of endometrial polyp. Orders: Referrals Speech and Hearing Referral H90.42 - Sensorineural hearing loss, unilateral, left ear, with unrestricted hearing on the contralateral side Coding Level of Care Code Est Pt Level 4 (74502) Diagnoses Anemia D50.8 Anemia type: iron deficiency Iron deficiency anemia type: other iron deficiency Left SNHL H90.42 Contralateral hearing status: unrestricted hearing on contralateral side Cervical myelopathy G95.9 Uterine myoma D25.9 Uterine leiomyoma location: unspecified location Additional Codes MIRZA-7 Assessment Billing - MIRZA-7 Assessment Tool: MIRZA-7 Assessment 40433 ([id number])
== END 2022-12-18 14:49 | disposition home or self-care (01) ==
PROVIDERS: PCP Physician Assistant; Visit Provider Physician Assistant
DX: D50.8 Other iron deficiency anemias (principal); H90.42 Sensorineural hearing loss, unilateral, left ear, with unrestricted hearing on the contralateral side; G95.9 Disease of spinal cord, unspecified; D25.9 Leiomyoma of uterus, unspecified
CPT/HCPCS: 99214

== ENCOUNTER 2022-12-22 08:11 | Day surgery (SDC) | payer OTHER, SELFPAY ==
[2022-12-20 10:55] VITALS: BMI 30.1
[2022-12-22 08:32] VITALS: BP 102/67; PULSE 80; RESP 18; TEMP 36.3; O2SAT 98
[2022-12-22] MEDS: Lactated Ringers 1,000 ML 100 ML IVCONT (08:56)
--- NOTE | 2022-12-22 09:17 | P.CONAN_ITS ---
[facility] Active Problems Active Problems: All Active Problems (Updated 12/18/22 @ 14:51 by Kadeem Jones PA-C) Left SNHL (Acute) Uterine myoma (Acute) Endometrial polyp (Acute) Unsatisfactory cervical Papanicolaou smear (Acute) Abnormal ultrasound of endometrium (Acute) Endometrial hyperplasia (Acute) Sinusitis (Acute) Dysuria (Acute) Right flank pain (Acute) Obese (Acute) Annual physical exam (Acute) Anemia (Acute) Screening for hypercholesterolemia (Acute) Screening for hypothyroidism (Acute) Screening for diabetes mellitus (DM) (Acute) Cervical myelopathy (Acute) Left knee pain (Acute) Breast cancer screening (Acute) Iron (Fe) deficiency anemia (Acute) BPV (benign positional vertigo) (Acute) Annual physical exam (Acute) Sacroiliac dysfunction (Acute) Right foot pain (Acute) Bilateral knee pain (Acute) Lumbar back pain (Acute) Anemia (Acute) COVID-19 (Acute) SOB (shortness of breath) (Acute) Past Medical History Medical History COVID-19 Left knee pain Low iron Family History Family History Maternal Aunt Diabetes Liver cancer Father Diabetes Family history of problems with anesthesia: No Surgical History Surgical History H/O tubal ligation Hx of appendectomy History of Problems with Anesthesia: No Social History Social History Household Members: Spouse and Children Housing: House Are you a primary career guidance counselor to a significant other at home: No Do you presently have visiting nurse or other home services: No Alcohol intake: former Patient Tobacco Use Status: Former Tobacco user Quit Date: 17 years ago Tobacco use type: Cigarette Cigarette Packs Per Day: 0.5 e-Cigarette/Vaping Use: Never Used Second Hand Smoke Exposure: No Use of substances other than those prescribed or required for medical reasons: No Are you DNR?: No Advance Directives: No Advance Directives Information Provided: Yes service: No Current occupational status: employed 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[employer] Cognitive needs: No Hearing needs: No Vision needs: No Meds Allergies Allergy/AdvReac Type Severity Reaction Status Date / Time acetaminophen [Percocet] Allergy Intermediate Increased Verified 12/18/22 14:34 heart rate, itchy oxycodone [From Percocet] Allergy Intermediate ITCHING Verified 12/18/22 14:34 Active Medications: Current Medications Lactated Ringer's (Lr) 1,000 mls @ 100 mls/hr IVCONT .Q10H EMY Last Admin: 12/22/22 08:56 Dose: 100 mls/hr Home Medications Medication Instructions Recorded Confirmed Last Taken Type cyanocobalamin (vitamin B-12) 1,000 mcg PO DAILY 12/22/22 12/22/22 Unknown History 1,000 mcg tablet Exam Exam Date and Time: December 22, 2022 0917 Height,Weight and Vital Signs: Height 5 ft 11 in Weight 97.522 kg Last Vital Signs Temp 97.3 F 12/22/22 08:32 Pulse 80 12/22/22 08:32 Resp 18 12/22/22 08:32 BP 102/67 12/22/22 08:32 Pulse Ox 98 12/22/22 08:32 O2 Del Method Room Air 12/22/22 08:32 Airway Mallampati Class: II TM Dist: >3cm Neck ROM: Full Assessment and Plan Assessment Anesthesia Assessment: Anesthesia Plan Discussed and Chart Reviewed Final Anesthetic Review Family History of Problems with Anesthesia: No History of Problems with Anesthesia: No NPO: Yes ASA Class: II Final Preanesthetic Review: No Changes in Pt Med Stat, Meds/Allgs Chart Reviewed, Consent Obtained/Reviewed and Anes Risks/Benef Reviewed Patient Risk: Low Procedure Risk: Low Anesthetic Plan Anesthetic Plan: GA Disposition: Standard PACU
--- NOTE | 2022-12-22 09:38 | MHC.SHP ---
Pre-Procedural Eval Section A Date of Service: 12/22/22 The patient is an INPATIENT: No Changes since office visit: No Cold of Flu in the past 2 weeks, No New Medical Problems, No Changes in Medication and No Patient answered all questions The History & Physical has been completed within 30 days and I have reviewed it.: Yes Section B Chief Complaint: Polyp of corpus uteri Allergies: Allergies Allergy/AdvReac Type Severity Reaction Status Date / Time acetaminophen [Percocet] Allergy Intermediate Increased Verified 12/18/22 14:34 heart rate, itchy oxycodone [From Percocet] Allergy Intermediate ITCHING Verified 12/18/22 14:34 Plan Diagnosis/Plan: Unchanged I have reviewed the history and physical and performed a pertinent physical examination on my patient. No changes have occurred unless specified. Time Spent With Patient Time: Total time managing care of this patient today ____ minutes.
--- NOTE | 2022-12-22 10:17 | PM.OP ---
Brief Operative Note Date of Service: 12/22/22 Pre-op diagnosis: Endometrial polyp by ultrasound Post-op diagnosis: same Procedure: Hysteroscopy D&C, Polypectomy Surgeon: Hang Steele MD Anesthesia: GLMA Was an Health Plan Specialist used for this Procedure?: No Estimated blood loss (mL): 0 Pathology: other (Endometrial Scrapping. Polyp) Condition: stable Disposition: PACU
--- NOTE | 2022-12-22 10:18 | P.OP_ITS ---
Operative Note Operative Note Date of Service: 12/22/22 Narrative: Preop Diagnosis: Endometrial polyp by US Operation: Diagnostic Hysteroscopy, Dilataion & Curettage and polypectomy Post Op Diagnosis: Endometrial Polyp QBL: Minimal Anesthesia: GLMA Surgeon: Hang Steele MD Hydrometer Calibrator: None Complication: None Pathology: Endometrial Scrapings, Endometrial polyp Procedure: The patient was put in the dorsal lithotomy position, scrubbed, and draped in the usual manner. A sterile speculum was inserted in the patient's vagina. The anterior lip of the cervix was grasped with a single tooth tenaculum. The cervix was dilated up to 5 mm, then the scope was inserted in the patient's uterus. Inspection revealed endometrial polyp. The Myosure Reach device was used; it was introduced through the operative channel and polypectomy done with no complications. The scope was then taken out from the uterine cavity, sharp curettings was carried on with minimal to moderate amount of tissues retrieved. At the end of the procedure, all instruments were taken out of the patient uterine and vaginal cavity. The single tooth tenaculum was removed and homeostasis was assured using pressure,. The patient tolerated the procedure well and was transferred to the PACU in a stable condition.
[2022-12-22 10:24] VITALS: BP 111/63; PULSE 76; RESP 12; TEMP 36.1; O2SAT 100
[2022-12-22 10:29] VITALS: BP 106/65; PULSE 80; RESP 16; O2SAT 100
[2022-12-22 10:34] VITALS: BP 115/67; PULSE 68; RESP 16; O2SAT 97
[2022-12-22 10:39] VITALS: BP 116/70; PULSE 74; RESP 16; O2SAT 97
[2022-12-22 10:55] VITALS: BP 118/76; PULSE 80; RESP 16; TEMP 36.2; O2SAT 97
[2022-12-22] MEDS: traMADoL HCL 50 MG TABLET 100 MG PO (10:56)
== END 2022-12-22 11:24 | disposition home or self-care (01) ==
PROVIDERS: PCP Physician Assistant; Visit Provider Obstetrics & Gynecology
PROC: 0UDB8ZZ Extraction of Endometrium, Via Natural or Artificial Opening Endoscopic (ICD-10-PCS; CPT 58558; principal; 2022-12-22 10:20)
DX: R87.615 Unsatisfactory cytologic smear of cervix (principal); N84.0 Polyp of corpus uteri; D25.9 Leiomyoma of uterus, unspecified; E61.1 Iron deficiency; Z98.51 Tubal ligation status; Z79.899 Other long term (current) drug therapy; Z88.8 Allergy status to other drugs, medicaments and biological substances; Z86.16 Personal history of COVID-19; Z87.891 Personal history of nicotine dependence
CPT/HCPCS: 58558; 88305; J1100; J1885; J2250; J2405

== ENCOUNTER → 2022-12-22 08:11 | Outpatient (BNV) | payer OTHER, SELFPAY | PROVIDERS: PCP Physician Assistant; Visit Provider Obstetrics & Gynecology | DX: N84.0 Polyp of corpus uteri (principal) | CPT/HCPCS: 58558 ==

== ENCOUNTER 2022-12-27 12:41 | Emergency (ER) | payer OTHER, SELFPAY ==
--- NOTE | ~2022-12-27 | XR_ITS ---
EXAMINATION: XR KNEE, RIGHT CLINICAL INFORMATION: Right knee pain and swelling COMPARISON: January 2021. TECHNIQUE: Four views of the right knee. FINDINGS: No evidence for acute fracture or dislocation. No osteochondral lesion or erosive process seen. No significant joint effusion observed. XR/XR knee RT 4V IMPRESSION: No acute process.
[2022-12-27 12:47] VITALS: BP 145/81; PULSE 83; RESP 18; TEMP 536.3; TEMP 997.3; O2SAT 99
--- NOTE | 2022-12-27 12:49 | ED.LOWEXIN ---
HPI - Extremity Injury (Lower) General Chief Complaint: Extremity Problem Stated Complaint: R Knee Pain No Injury Time Seen by Provider: 12/27/22 13:58 Source: patient Mode of arrival: ambulatory Limitations: no limitations History of Present Illness HPI Narrative: Patient is a 47 year old assigned female at with a history of anemia, endometrial polyps, and BPV presenting to the emergency department today with right knee pain. Patient states that earlier today she was beginning to kneel down on her right knee and before she made it all the way down, she felt a pop and could not continue to a full kneel with the right knee. Patient states that the pain is just below the knee to the right side. Patient denies any dizziness, lightheadedness, abdominal pain, nausea, vomiting, fever, chills, blurry vision, double vision, loss of vision, chest pain, difficulty breathing, shortness of breath, back pain, night sweats, pain with urination, increased urinary frequency, increased urinary urgency, blood in her urine or stool, syncope or a near syncopal episode, bowel incontinence, bladder incontinence, bowel retention, bladder retention, or any other complaints at this time. MD complaint: knee injury Onset (ago): minute(s) Place: home Severity: mild Severity scale (1-10): 3 Exacerbating factors: weight bearing Associated symptoms: snap/pop sensation Other symptoms: none Related Data Home Medications Medication Instructions Recorded Confirmed cyanocobalamin (vitamin B-12) 1,000 mcg PO DAILY 12/22/22 12/22/22 1,000 mcg tablet Previous Rx's Medication Instructions Recorded ferrous sulfate 325 mg (65 mg 325 mg PO DAILY #90 tabs 05/25/22 iron) tablet Allergies Allergy/AdvReac Type Severity Reaction Status Date / Time oxycodone [From Percocet] Allergy Intermediate ITCHING Verified 12/18/22 14:34 Review of Systems Constitutional: Constitutional: Reports no additional constitutional complaints, Denies chills, Denies fever(s) and Denies night sweats Eyes: Eyes: Reports no additional eye complaints, Denies blurry vision, Denies change in vision, Denies diplopia, Denies eye discharge, Denies loss of vision and Denies eye pain ENT: Denies dizziness Cardiovascular: Cardiovascular: Reports no additional cardiovascular complaints, Denies chest pain, Denies lightheadedness, Denies Loss of Consciousness and Denies dyspnea Respiratory: Respiratory: Reports no additional respiratory complaints and Denies dyspnea Gastrointestinal: Gastrointestinal: Reports no additional gastrointestinal complaints, Denies abdominal pain, Denies melena, Denies hematochezia, Denies change in bowel habits and Denies change in stool character Genitourinary: Genitourinary: Denies hematuria, Denies urinary frequency, Denies dysuria, Denies urinary incontinence, Denies urinary hesitancy and Denies urinary urgency Musculoskeletal: Musculoskeletal: Reports no additional musculoskeletal complaints, Denies numbness and Denies tingling Comments: right knee pain Neurologic: Denies dizziness, Denies loss of vision, Denies numbness and Denies tingling Psychiatric: Psychiatric: Reports no additional psychiatric complaints Endocrine: Endocrine: Reports no additional endocrine complaints Hematologic/Lymphatic: Hematologic/Lymphatic: Reports no additional hematologic/lymphatic complaints Allergic/Immunologic: Allergic/Immunologic: Reports no additional allergic/immunologic complaints PMF Past Medical History Attestation statement: The following information was validated with the patient. Source: old records reviewed and nursing notes reviewed Medical History Abnormal ultrasound of endometrium Annual physical exam Annual physical exam Bilateral knee pain Breast cancer screening COVID-19 COVID-19 Dysuria Left knee pain Low iron Lumbar back pain Obese Right flank pain Right foot pain Sacroiliac dysfunction Screening for diabetes mellitus (DM) Screening for hypercholesterolemia Screening for hypothyroidism Sinusitis SOB (shortness of breath) Surgical History H/O tubal ligation Hx of appendectomy Family History Family History Maternal Aunt Diabetes Liver cancer Father Diabetes Social History Social History Household Members: Spouse and Children Housing: House Are you a primary progressive care nurse to a significant other at home: No Do you presently have visiting nurse or other home services: No Alcohol intake: former Patient Tobacco Use Status: Former Tobacco user Quit Date: 17 years ago Tobacco use type: Cigarette Cigarette Packs Per Day: 0.5 e-Cigarette/Vaping Use: Never Used Second Hand Smoke Exposure: No service: No Current occupational status: employed Current occupation: [employer] Cognitive needs: No Hearing needs: No Vision needs: No Physical Exam Vital Signs: Vital Signs: Last Vital Signs Temp 97.6 F 12/27/22 14:41 Pulse 83 12/27/22 12:47 Resp 18 12/27/22 12:47 BP 145/81 H 12/27/22 12:47 Pulse Ox 99 12/27/22 12:47 O2 Del Method Room Air 12/27/22 12:47 BMI result Body Mass Index 30.0 Const: General: cooperative, no acute distress, alert and awake Nutritional Appearance: well nourished Orientation/consciousness: patient oriented x3 Limitations: no limitations HEENT: Head: Yes normal to inspection and Yes atraumatic Ears: hearing grossly normal bilaterally and external ears normal General nose exam: Normal external nose present, no nasal discharge noted and no epistaxis Face and sinus: Yes normal facial exam, No abrasion and No laceration Mouth: Normal oral and palatal mucosa present, no drooling and no muffled voice Eyes: General: appearance normal, both eyes and all related structures Periorbital: periorbital findings normal Eyelids: Yes eyelids normal Conjunctivae: conjunctivae normal Pupils: Equal, round and reactive pupils present EOM: EOMs intact bilaterally Neck: Neck: Yes normal visual inspection, Yes full ROM and Yes no lymphadenopathy Chest: Chest palpation & inspection: normal inspection of the chest Resp: Effort & Inspection: normal respiratory effort and able to speak in complete sentences GI: Inspection: Yes normal to inspection Neuro: General: patient oriented x3 and moves all extremities Cranial nerves: Yes Equal, round and reactive pupils present Cognition (Neuro): normal cognition Motor exam (neuro): 5/5 motor strength present throughout Sensory Exam: Normal double simultaneous stimulation for sensation Coordination: [id number] test normal Extrem: General: Yes normal to inspection, Yes full ROM and Yes capillary refill normal Psych: Appearance: grossly normal Mental Status: mental status grossly normal Affect: normal affect Attitude: cooperative Thought process: Normal thought process present Thought content: Normal thought content present Insight: Good insight present (Psych) Course Course Course Narrative: RME - 47 yo female presenting to the ER for evaluation of right knee throbbing pain, numbness, swelling after kneeling on it 2 hours ago. limping into triage. no popliteal tenderness or calf tenderness. has full extension and flexion. Plan: x-ray Medical Decision Making Medical Decision Making [facility] Narrative: Patient is a 47 year old assigned female at with a history of anemia, BPV, and uterine polyps presenting to the emergency department today with right knee pain. Patient's physical exam was unremarkable. Patient's right knee x-ray showed no acute process. I explained my physical exam findings as well as all test results to the patient. I answered all questions asked by the patient. When reviewing the patient's right knee x-ray, I noted the patella to be mildly higher today than it was on her previous films from January of 2021. Given this and the patient's history / presentation, patient's right knee will be immobilized, she will be instructed to be non-weight bearing on the right lower extremity, be given crutches, and instructed to follow up with an orthopedic provider. Patient's right knee was placed in an knee immobilzier and given crutches, with crutch instructions. Patient's right lower extremity PMS was intact prior to and after immobilizer placement. I stressed the importance of the patient taking her medication as prescribed. I stressed the importance of the patient following up with her primary care provider and an orthopedic provider. I stressed the importance of the patient returning to the emergency department immediately if her symptoms were to worsen or if she were to develop any dizziness, shortness of breath, difficulty breathing, chest pain, blurry vision, loss of vision, nausea, vomiting, abdominal pain, fever, chills, back pain, or any other complaints. Patient verbalized agreement and understanding with this treatment plan and discharge. Differential Diagnosis Differential Diagnoses: The differential diagnosis associated with the presentation includes Fracture Knee injury Knee sprain Knee strain Patellar tendon injury Quadricep injury Independent Interpretation I performed an independent interpretation of an: Plain X-Ray Interpretation: My interpretation is in agreement with the radiologist's impression of this imaging study with the exception of a possibly higher patella when compared to her imaging from 01/2021 as noted in the [facility] portion of this chart. EXAMINATION: XR KNEE, RIGHT? CLINICAL INFORMATION: Right knee pain and swelling? COMPARISON: January 2021.? TECHNIQUE: Four views of the right knee. FINDINGS: No evidence for acute fracture or dislocation. No osteochondral lesion or erosive process seen. No significant joint effusion observed.? XR/XR knee RT 4V IMPRESSION: No acute process. Dictated By: King Mccray Signed By: Electronically signed by King?Shazia 12/27/22 5016 Radiology Impression Discussion of test interpretation with radiology: I have reviewed the radiologist's reading. Procedures Orthopedic Splinting/Casting Injury #1: Side: right Lower Extremity Injury Location: knee Lower Extremity Immobilizer: knee immobilizer Other Orthopedic Equipment: crutches Discharge Plan Discharge Clinical Impression: Right knee injury, Right knee sprain Patient Disposition: Home, Self-Care Instructions: Knee Sprain (DC), Crutch Instructions (ED) Additional Instructions: Your x-ray was read as negative however, when comparing your images today to your previous images - your patella appears to be higher now. This is concerning for an acute knee injury. Remain non-weight bearing on your right leg. Use your crutches and knee immoblizer as directed. Follow up with your primary care provider and an orthopedic provider. Return to the emergency department immediately if your symptoms worsen or if you develop any dizziness, shortness of breath, difficulty breathing, chest pain, blurry vision, loss of vision, nausea, vomiting, abdominal pain, fever, chills, back pain, or any other complaints. Prescriptions: No Action ferrous sulfate 325 mg (65 mg iron) tablet 325 mg PO DAILY Qty: 90 14RF cyanocobalamin (vitamin B-12) 1,000 mcg tablet 1,000 mcg PO DAILY Referrals: [facility] [Provider Group] (Call to establish and follow up with an orthopedic provider. ) Kadeem Jones PA-C [Primary Care Provider] - Stand Alone Forms: Work/School Release Interventions: ED Discharge Assessment Last Done: 12/27/22 15:04 Discharge Date/Time: 12/27/22 15:05 Print Language: Indonesian
[2022-12-27 14:41] VITALS: TEMP 36.4
== END 2022-12-27 15:05 | disposition home or self-care (01) ==
PROVIDERS: Emergency Provider Emergency Medicine; PCP Physician Assistant
DX: S83.91XA Sprain of unspecified site of right knee, initial encounter (principal); X58.XXXA Exposure to other specified factors, initial encounter; Y93.9 Activity, unspecified; Y92.9 Unspecified place or not applicable; Y99.9 Unspecified external cause status; Z87.891 Personal history of nicotine dependence
CPT/HCPCS: 73564; 99283

== ENCOUNTER 2022-12-29 08:51 | Outpatient (REF) | payer OTHER, SELFPAY ==
--- NOTE | ~2022-12-29 | XR_ITS ---
EXAMINATION: XR KNEE AP STANDING CLINICAL INFORMATION: Pain knee COMPARISON: 12/27/2022 right knee, 01/13/2021 left knee TECHNIQUE: AP bilateral standing view of the knees was obtained. FINDINGS: Left knee: Chondrocalcinosis in the medial and lateral compartments of the left knee. Moderate lateral joint space narrowing. Right knee: Tiny medial marginal osteophytes. Mild to moderate lateral joint space narrowing. XR/XR knee standing BI IMPRESSION: Degenerative changes on standing view of bilateral knees.
== END 2022-12-29 08:52 | disposition home or self-care (01) ==
LOC: HO.HOSX 08:51
PROVIDERS: PCP Physician Assistant; Visit Provider Physician Assistant
DX: M23.91 Unspecified internal derangement of right knee (principal)
CPT/HCPCS: 73565; 99202

== ENCOUNTER 2022-12-29 08:51 | Outpatient (AMB) | payer OTHER, SELFPAY ==
--- NOTE | 2022-12-29 08:57 | A.OFFVIS_ITS ---
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 She states that her knee pain started on the 12/27/22 when she kneel down and she felt like her knee was going to pop out. Patient states that the pain is just below the knee to the lateral aspect of the knee. She states that she is unable to apply all her weight on her right side. Having numbness on the lateral side of the knee since the incident. 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 The patient presented to the ED on 12/27/2022 status post going to kneel down when she felt a pop. X-rays of the right knee were obtained. She was placed in a right knee immobilizer, instructed to remain non-weight bearing, and referred to orthopedics. The patient reports her pain is located just below the knee on the lateral aspect of the knee. She states she is unable to apply all weight on the right lower extremity. She confirms numbness on the lateral aspect of the knee since the incident, that radiates down her leg. She states she has not been using the brace she was given full roll inspector due to it not fitting and sliding off. [facility] Medical History Abnormal ultrasound of endometrium Annual physical exam Annual physical exam Bilateral knee pain Breast cancer screening COVID-19 COVID-19 Dysuria Left knee pain Low iron Lumbar back pain Obese Right flank pain Right foot pain Sacroiliac dysfunction Screening for diabetes mellitus (DM) Screening for hypercholesterolemia Screening for hypothyroidism Sinusitis SOB (shortness of breath) Surgical History H/O tubal ligation Hx of appendectomy Family History Maternal Aunt Diabetes Liver cancer Father Diabetes Social History (Reviewed 12/29/22 @ 09:04 by Jena Domínguez Household Members: Spouse and Children Housing: House Are you a primary neonatal intensive care nurse to a significant other at home: No Do you presently have visiting nurse or other home services: No Alcohol intake: former Patient Tobacco Use Status: Former Tobacco user Quit Date: 17 years ago Tobacco use type: Cigarette Cigarette Packs Per Day: 0.5 e-Cigarette/Vaping Use: Never Used Second Hand Smoke Exposure: No service: No Current occupational status: employed Current occupation: [employer] Cognitive needs: No Hearing needs: No Vision needs: No Review of Systems Const All systems reviewed & are unremarkable except as noted in HPI and below Physical Exam Vital Signs: BMI result Body Mass Index 30.0 Const General: cooperative, healthy appearing, comfortable, no acute distress, well developed and alert Orientation/consciousness: patient oriented x3 HEENT Head: Yes normal to inspection, Yes normocephalic and Yes atraumatic Eyes General: appearance normal, both eyes and all related structures Resp Effort & Inspection: normal respiratory effort and able to speak in complete sentences Cardio Rate: regular rate Peripheral pulses: Peripheral pulses 2+ throughout GI Palpation (GI): Soft to palpation Skin Lesions: no lesions Rashes: no rashes Neuro General: patient oriented x3 Extrem Other: Right knee: Able to flex and extend. ROM is 10-90 degrees. No palpable defect at the patella tendon or quad tendon. Tenderness to palpation lateral aspect of the knee to the distal pole of the patella. Numbness on the lateral aspect the lower extremity to the fibular head to 1-[address] Assessment & Plan Assessment & Plan (1) Internal derangement of right knee: Code(s): M23.91 - Unspecified internal derangement of right knee Plan Ms. Phipps is a 47-year-old female who presents in the office today, as a new patient, for an evaluation of right knee pain. The patient presented to the ED on 12/27/2022 status post going to knee down when she felt a pop. X-rays of the right knee were obtained. She was placed in a right knee immobilizer, instructed to remain non-weight bearing, and referred to orthopedics. The patient reports her pain is located just below the knee on the lateral aspect of the knee. She states she is unable to apply all weight on the right lower extremity. She confirms numbness on the lateral aspect of the knee since the incident, that radiates down her leg. She states she has not been using the brace she was given full roll inspector due to it not fitting and sliding off. Dr. Zambrano was available to see the patient with me and a collaborative treatment plan was made. She can discontinue the use of the brace at this time. She will be referred for a stat MRI for further evaluation and treatment. Follow up will be after the MRI is obtained, or sooner if needed. X-rays of the right knee which were obtained while in the office today and were reviewed by me, Destinee Child PA-C, revealed no evidence of acute fracture or dislocation. X-rays of the right knee, obtained on 12/27/2022, revealed: No evidence for acute fracture or dislocation. No osteochondral lesion or erosive process seen. No significant joint effusion observed. Orders: Orders XR knee standing BI Today M25.569 - Pain in unspecified knee MR knee RT wo con Today M23.91 - Unspecified internal derangement of right knee Patient Instructions: Scribed for Destinee Child PA-C by Nena Packer medical radiation dosimetrist, on 12/29/2022 at 8:54 am, EST. Your attestation Coding Level of Care Code New Pt Level 4 (98454) Diagnoses Internal derangement of right knee M23.91
== END 2022-12-29 10:00 | disposition home or self-care (01) ==
PROVIDERS: PCP Physician Assistant; Visit Provider Physician Assistant
DX: M23.91 Unspecified internal derangement of right knee (principal)
CPT/HCPCS: 99204

== ENCOUNTER 2023-01-09 10:07 | Outpatient (AMB) | payer OTHER, SELFPAY ==
--- NOTE | 2023-01-09 10:15 | A.OFFVIS_ITS ---
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 The pathology showed the following: A. Endometrium, curettage: Proliferative endometrium; no atypia or hyperplasia identified. B. Endometrium, polypectomy: Fragments of endometrial polyp; no atypia identified. [facility] Medical History Abnormal ultrasound of endometrium Annual physical exam Annual physical exam Bilateral knee pain Breast cancer screening COVID-19 COVID-19 Dysuria Left knee pain Low iron Lumbar back pain Obese Right flank pain Right foot pain Sacroiliac dysfunction Screening for diabetes mellitus (DM) Screening for hypercholesterolemia Screening for hypothyroidism Sinusitis SOB (shortness of breath) Surgical History H/O tubal ligation Hx of appendectomy Family History Maternal Aunt Diabetes Liver cancer Father Diabetes Social History Household Members: Spouse and Children Housing: House Are you a primary wound care specialist to a significant other at home: No Do you presently have visiting nurse or other home services: No Alcohol intake: former Patient Tobacco Use Status: Former Tobacco user Quit Date: 17 years ago Tobacco use type: Cigarette Cigarette Packs Per Day: 0.5 e-Cigarette/Vaping Use: Never Used Second Hand Smoke Exposure: No service: No Current occupational status: employed Current occupation: [employer] Cognitive needs: No Hearing needs: No Vision needs: No Female Reproductive History Menstrual Age of Menarche: 13 Duration of menses: 3-5 days Date of last menstrual period: 01/03/23 control method: permanent sterilization Review of Systems Const All systems reviewed & are unremarkable except as noted in HPI and below Reports as per HPI and Reports no additional complaints GI Reports no additional complaints Reports no additional complaints Physical Exam Vital Signs: Last Vital Signs BP 114/64 01/09/23 10:17 BMI result Body Mass Index 30.7 Assessment & Plan Assessment & Plan (1) Endometrial polyp: Code(s): N84.0 - Polyp of corpus uteri Plan: Discussed with the patient the intraoperative findings, endometrial polyp and the results of the pathology showing benign endometrial polyp with proliferative endometrium was no evidence of endometrial hyperplasia malignancy. The patient was reassured. All questions answered, the patient verbalized understanding Coding Level of Care Code Est Pt Level 3 (50712) Diagnoses Endometrial polyp N84.0
[2023-01-09 10:17] VITALS: BP 114/64; BMI 30.7
== END 2023-01-09 10:40 | disposition home or self-care (01) ==
LOC: HO.HWS 10:07
PROVIDERS: PCP Physician Assistant; Visit Provider Obstetrics & Gynecology
DX: N84.0 Polyp of corpus uteri (principal)
CPT/HCPCS: 99213

== ENCOUNTER → 2023-01-09 10:07 | Outpatient (BNVA) | payer OTHER, SELFPAY | PROVIDERS: PCP Physician Assistant; Visit Provider Obstetrics & Gynecology | DX: N84.0 Polyp of corpus uteri (principal); M23.91 Unspecified internal derangement of right knee | CPT/HCPCS: 99212 ==

== ENCOUNTER 2023-01-09 14:44 | Outpatient (AMB) | payer OTHER, SELFPAY ==
--- NOTE | 2023-01-09 14:58 | A.OFFVIS_ITS ---
Intake Intake Visit Reasons: OV- MRI Review RT Knee Allergies oxycodone [From Percocet] Allergy (Intermediate, Verified 01/09/23 10:19) ITCHING HPI OV- MRI Review RT Knee HPI Details 47-year-old female who presents in the office today for a follow up of right knee pain and review of her MRI. She continues to have pain but reports that she feels like it is improving. The majority of her pain is located on the lateral aspect of the knee. [facility] Medical History Abnormal ultrasound of endometrium Annual physical exam Annual physical exam Bilateral knee pain Breast cancer screening COVID-19 COVID-19 Dysuria Left knee pain Low iron Lumbar back pain Obese Right flank pain Right foot pain Sacroiliac dysfunction Screening for diabetes mellitus (DM) Screening for hypercholesterolemia Screening for hypothyroidism Sinusitis SOB (shortness of breath) Surgical History H/O tubal ligation Hx of appendectomy Family History Maternal Aunt Diabetes Liver cancer Father Diabetes Social History Household Members: Spouse and Children Housing: House Are you a primary rental boats caretaker to a significant other at home: No Do you presently have visiting nurse or other home services: No Alcohol intake: former Patient Tobacco Use Status: Former Tobacco user Quit Date: 17 years ago Tobacco use type: Cigarette Cigarette Packs Per Day: 0.5 e-Cigarette/Vaping Use: Never Used Second Hand Smoke Exposure: No service: No Current occupational status: employed Current occupation: [employer] Cognitive needs: No Hearing needs: No Vision needs: No Female Reproductive History Menstrual Age of Menarche: 13 Review of Systems Const All systems reviewed & are unremarkable except as noted in HPI and below Physical Exam Const General: cooperative, healthy appearing and no acute distress Resp Effort & Inspection: normal respiratory effort and able to speak in complete sentences Cardio Rate: regular rate Peripheral pulses: Peripheral pulses 2+ throughout GI Palpation (GI): Soft to palpation Skin Lesions: no lesions Rashes: no rashes Extrem Other: Right knee: Able to flex and extend. ROM is 0-110 degrees. No palpable defect at the patella tendon or quad tendon. Tenderness to palpation lateral aspect of the knee to the distal pole of the patella. NVI. Assessment & Plan Assessment & Plan (1) Internal derangement of right knee: Code(s): M23.91 - Unspecified internal derangement of right knee Plan Ms. Phipps is a 47-year-old female who presents in the office today for a follow up of right knee pain and review of her MRI. The patient will be referred to physical therapy. She will follow up will be in 6 weeks, or sooner if needed. MRI of the right knee, obtained on 01/05/2023 revealed: 1. Mild distal quadriceps tendinopathy. 2. Mild proximal patellar ligament sprain. 3. Moderate thinning and chondromalacia of the lateral patellar facet cartilage. 4. Focal edema of the Hoffa?s fat medially suggestive of an impingement syndrome. Orders: Orders PT Evaluation and Treatment Today M23.91 - Unspecified internal derangement of right knee Patient Instructions: Scribed for Destinee Child PA-C by Nena Packer medical records coordinator, on 01/09/2023 at 2:59 pm, EST. Coding Level of Care Code Est Pt Level 3 (83941) Diagnoses Internal derangement of right knee M23.91
== END 2023-01-09 15:17 | disposition home or self-care (01) ==
PROVIDERS: PCP Physician Assistant; Visit Provider Physician Assistant
DX: M23.91 Unspecified internal derangement of right knee (principal)
CPT/HCPCS: 99213

== ENCOUNTER 2023-02-26 11:38 | Outpatient (AMB) | payer OTHER, SELFPAY ==
[2023-02-26 11:42] VITALS: BMI 30.7
--- NOTE | 2023-02-26 11:42 | MHC.OFFVIS ---
Intake Vital Signs 02/26/23 11:42 Height 5 ft 11 in Weight 220 lb BMI 30.7 Intake Visit Reasons: ov- Right knee pain S/P PT Intake Note: Yuriy is a 47 year old female who presents today for a follow up for her right knee pain. Patient reports her pain is not bad today but is having concerns of some swell on her contreras. She states that PT is going okay, she fells like its not helping her with her pain but she will continue to go. Allergies oxycodone [From Percocet] Allergy (Intermediate, Verified 02/26/23 11:44) ITCHING HPI ov- Right knee pain S/P PT HPI Details 47-year-old female who presents in the office today for a follow up of right knee pain. The patient reports her pain is not bad today, but does have concern with edema in her contreras. She confirms participating in physical therapy and states it is going okay. However she feels it is not helping her with the pain. [facility] Medical History Abnormal ultrasound of endometrium Annual physical exam Annual physical exam Bilateral knee pain Breast cancer screening COVID-19 COVID-19 Dysuria Left knee pain Low iron Lumbar back pain Obese Right flank pain Right foot pain Sacroiliac dysfunction Screening for diabetes mellitus (DM) Screening for hypercholesterolemia Screening for hypothyroidism Sinusitis SOB (shortness of breath) Surgical History H/O tubal ligation Hx of appendectomy Family History Maternal Aunt Diabetes Liver cancer Father Diabetes Social History Household Members: Spouse and Children Housing: House Are you a primary child care education coordinator to a significant other at home: No Do you presently have visiting nurse or other home services: No Alcohol intake: former Patient Tobacco Use Status: Former Tobacco user Quit Date: 17 years ago Tobacco use type: Cigarette Cigarette Packs Per Day: 0.5 e-Cigarette/Vaping Use: Never Used Second Hand Smoke Exposure: No service: No Current occupational status: employed Current occupation: [employer] Cognitive needs: No Hearing needs: No Vision needs: No Female Reproductive History Menstrual Age of Menarche: 13 Review of Systems Const All systems reviewed & are unremarkable except as noted in HPI and below Physical Exam Vital Signs: BMI result Body Mass Index 30.7 Const General: cooperative, healthy appearing and no acute distress Resp Effort & Inspection: normal respiratory effort and able to speak in complete sentences Cardio Rate: regular rate Peripheral pulses: Peripheral pulses 2+ throughout GI Palpation (GI): Soft to palpation Skin Lesions: no lesions Rashes: no rashes Extrem Other: Right knee: Normal to inspection. No ecchymosis, erythema, or edema. Tenderness to palpation lateral joint line as well as along the lateral aspect of the patella. Full ROM. Lateral sided numbness. Assessment & Plan Assessment & Plan (1) Internal derangement of right knee: Code(s): M23.91 - Unspecified internal derangement of right knee Plan Ms. Phipps is a 47-year-old female who presents in the office today for a follow up of right knee pain. The patient reports her pain is not bad today, but does have concern with edema in her contreras. She confirms participating in physical therapy and states it is going okay. However she feels it is not helping her with the pain. I discussed the role of cortisone injections while in the office today. She would like to defer at this time due to her pain slightly improving. She would like to continue her physical therapy this week and progress to the at home exercise program. I discussed a referral for Pain Management for right lateral pain and numbness. She would like to defer at this time. Follow up will be PRN, or sooner if needed. Patient Instructions: Scribed for Destinee Child PA-C by Nena Packer medical staff manager, on 02/26/2023 at 11:41 am, EST. Coding Level of Care Code Est Pt Level 3 (42267) Diagnoses Internal derangement of right knee M23.91
== END 2023-02-26 12:12 | disposition home or self-care (01) ==
PROVIDERS: PCP Physician Assistant; Visit Provider Physician Assistant
DX: M23.91 Unspecified internal derangement of right knee (principal)
CPT/HCPCS: 99213

== ENCOUNTER → 2023-02-26 11:38 | Outpatient (BNVA) | payer OTHER, SELFPAY | PROVIDERS: PCP Physician Assistant; Visit Provider Physician Assistant | DX: M23.91 Unspecified internal derangement of right knee (principal) | CPT/HCPCS: 99212 ==

== ENCOUNTER 2023-02-27 10:00 | Outpatient (RCR) | payer OTHER, SELFPAY ==
--- NOTE | 2023-02-02 10:23 | MHC.PT.EP ---
[facility] [place] Office [place] Office [place] Office [address]iss[address] Basilio [address] [phone] F: [phone] F: [phone] F: [phone] F: [phone] Physical Therapy Plan of Care Date of Evaluation: Date of Surgery: Diagnosis: RIGHT knee internal derangement (MD Dx) MRI 01/05/2023 results:1. Mild distal quadriceps tendinopathy. 2. Mild proximal patellar ligament sprain. 3. Moderate thinning and chondromalacia of the lateral patellar facet cartilage. 4. Focal edema of the Hoffa?s fat medially suggestive of an impingement syndrome. Assessment: Patient is a pleasant 47 y.o. female who is referred to PT by Destinee Child PA-C, with Dx of RIGHT knee internal derangement. MRI 01/05/2023 results:1. Mild distal quadriceps tendinopathy. 2. Mild proximal patellar ligament sprain. 3. Moderate thinning and chondromalacia of the lateral patellar facet cartilage. 4. Focal edema of the Hoffa?s fat medially suggestive of an impingement syndrome. Patient impairments include pain, limited knee ROM, R knee weakness, localized edema. Patient current functional limitations are bending, kneeling, prolonged standing and walking, walking outdoors, putting on shoes and socks. Patient will benefit from skilled PT to address aforementioned impairments and functional limitations to meet established goals. Frequency and Duration: The patient will be seen 2x/week for 4 weeks Short Term Goals: 2 weeks Patient demonstrates consistency and independence with HEP to self manage symptoms. Neuropsychiatrist Goals: 4 weeks Patient presents with increased R knee flexion AROM 120 degrees to be able to bend to low chair. Patient presents with increased R quad strength 5/5 to be able to kneel. Treatment Plan: Modalities to reduce pain, spasms and effusion. Manual therapy to restore motion and function. Therapeutic exercise to improve strength and flexibility. Neuromuscular re-education for posture and balance. Therapeutic activities to return to functional activities of daily living. Electronically signed by: Mariana Guerin, PT, DPT Please sign and return to therapist. Thank you for your referral.
--- NOTE | 2023-04-23 10:38 | MHC.PT.DC ---
[facility] [place] Office [place] Office [place] Office [address] Brooklynn Basilio [address] [phone] F: [phone] F: [phone] F: [phone] F: [phone] Physical Therapy Discharge Report Diagnosis: RIGHT knee internal derangement (MD Barrera) MRI 01/05/2023 results:1. Mild distal quadriceps tendinopathy. 2. Mild proximal patellar ligament sprain. 3. Moderate thinning and chondromalacia of the lateral patellar facet cartilage. 4. Focal edema of the Hoffa?s fat medially suggestive of an impingement syndrome. Date of Surgery: Date of Evaluation: 02/02/23 Date of Discharge: 04/23/23 Treatments to Date: 5 Cancellations to Date: No Shows to Date: Discharge Status: Patient Elected to Stop Visit Non-compliance Discharge Summary: Yuriy completed a few visits of PT, but treatment was often limited due to c/o back pain. She ceased attending PT on her own accord after visit on 02/27/2023. She is therefore discharged from PT at this time. Electronically signed by: Mariana Guerin, PT, DPT Please sign and return to therapist. Thank you for your referral.
== END 2023-04-23 10:38 | disposition home or self-care (01) ==
LOC: HO.PT 10:00
PROVIDERS: PCP Physician Assistant; Visit Provider Physician Assistant
DX: M23.91 Unspecified internal derangement of right knee (principal)
CPT/HCPCS: 97035; 97110; 97112; 97161

== ENCOUNTER 2023-03-05 10:52 | Outpatient (AMB) | payer OTHER, SELFPAY ==
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
[2023-03-05 11:00] VITALS: BP 115/60; PULSE 77; O2SAT 97; BMI 30.5
== END 2023-03-05 11:27 | disposition home or self-care (01) ==
PROVIDERS: PCP Physician Assistant; Visit Provider Nurse Practitioner Family
DX: M23.91 Unspecified internal derangement of right knee (principal); M25.561 Pain in right knee
CPT/HCPCS: 99203

== ENCOUNTER → 2023-03-05 10:52 | Outpatient (BNVA) | payer OTHER, SELFPAY | PROVIDERS: PCP Physician Assistant; Visit Provider Nurse Practitioner Family ==

== ENCOUNTER 2023-03-22 14:11 | Outpatient (REF) | payer OTHER, SELFPAY ==
--- NOTE | ~2023-03-22 | MR_ITS ---
EXAMINATION: MR KNEE WITHOUT CONTRAST, RIGHT CLINICAL INFORMATION: Unspecified internal derangement of the right knee. Evaluate lateral retinaculum. COMPARISON: 02/14/2019. TECHNIQUE: MRI of the knee without contrast was performed using routine sequences on a high-field scanner. FINDINGS: MENISCI: Medial Meniscus: Intact Lateral Meniscus: Intact LIGAMENTS: Cruciate: Intact Collateral: Intact EXTENSOR MECHANISM: Quadriceps and patellar tendons are intact. In the superolateral aspect of Hoffa's fat pad, there is a 2 x 1 x 1.2 cm focus of multilocular cystic change between the patellar tendon and lateral trochlear facet, which is more well-defined as compared to the prior study, though slightly decreased in size, potentially corresponding to reactive cystic change from patellar tendon/lateral femoral condyle impingement. Adjacent fat pads and fascial planes are otherwise unremarkable. ARTICULAR CARTILAGE/BONE: Patellofemoral Compartment: There is [id number] nonuniform chondral thinning at the lateral patellar facet with more mild chondral thinning at the median ridge and medial facet. Small marginal osteophytes. Trochlear cartilage appears relatively well-preserved. The appearance is unchanged as compared to prior. Medial Compartment: Normal Lateral Compartment: Mild chondral thinning and surface irregularity at the posterior margin of the lateral tibial plateau, unchanged. JOINT FLUID AND BURSAE: No joint effusion or Franks's cyst. As previously noted, there is a small low signal intensity loose body in the anterior recess of the lateral compartment, measuring 5 mm in diameter. MR/MR knee RT wo con IMPRESSION: 1. Mild patellofemoral compartment osteoarthritis, unchanged as compared to prior. 2. A 2 cm focus of multilocular cystic change in the superolateral aspect of Hoffa's fat pad (just deep to the lateral retinaculum) likely corresponds to reactive cystic change from patellar tendon - lateral femoral condyle friction syndrome. 3. Intact ligaments and menisci. 4. A 5 mm loose body in the anterior recess of the lateral compartment.
== END 2023-03-22 14:12 | disposition home or self-care (01) ==
LOC: HO.MRI 14:11
PROVIDERS: PCP Physician Assistant; Visit Provider Physician Assistant
DX: M23.91 Unspecified internal derangement of right knee (principal)
CPT/HCPCS: 73721

== ENCOUNTER 2023-05-14 09:20 | Outpatient (AMB) | payer OTHER, SELFPAY ==
--- NOTE | 2023-05-14 09:35 | MHC.PC.OV ---
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 Maker Required: No Accompanied by: Self / Same As Patient Allergies oxycodone [From Percocet] Allergy (Intermediate, Verified 05/14/23 09:53) ITCHING Medication List - Last Reconciled 05/14/23 by Kadeem Jones PA-C cyanocobalamin (vitamin B-12) 1,000 mcg PO DAILY ferrous sulfate 325 mg PO DAILY Tobacco use date assessed: 12/18/22 Dental Screening Dental Screen Date: 05/14/23 Did you have a dental visit in the last 12 months?: Yes Did you have a dental problem in the last 6 months where you did not have access to dental care?: No Was dental information given to patient?: Patient has dentist HPI Annual Exam HPI Details Patient is a 47-year-old female here today for a follow-up visit l.? Patient has a past history significant iron deficiency anemia, obesity, cervical disc diseasey, endometrial polyp. Is due for uterine surgery with [facility] ladies suit operator due to her endometrial polyp in thick endometrium. Concern--> has been having difficulty with her right knee to which she is saw orthopedics and currently seeing pain management to help reduce her knee pain. She is awaiting MRI results and considering nerve stimulation. She has noted bald spots on her scalp. She would like to see a manager programming for evaluation .. Anemia: Followed by hematology , most recent CBCs showing a slightly low RBCs and hemoglobin.? She continues on B12 and iron supplementation. .. Obese: Has lost weight since last office visit. Does report getting dental work and has changed her diet which has helped her lose weight. 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 Biopsies were benign Vaccines: Up-to-date with COVID vaccine, tetanus vaccine, declines flu vaccine. Colon cancer screening: willing to do colonoscopy. Laboratory Tests 12/15/22 02/23/23 02/23/23 08:23 08:54 08:54 WBC 4.2 L 4.4 L RBC 4.52 4.64 Hgb 11.6 L Random Glucose 172 H Hgb A1c (Clinic) Iron 37 % Saturation 10 L 05/14/23 09:51 WBC RBC Hgb Random Glucose Hgb A1c (Clinic) 5.2 Iron % Saturation PFSH Medical History (Updated 05/14/23 @ 10:08 by Kadeem Jones PA-C) Screening for diabetes mellitus (DM) Annual physical exam Abnormal ultrasound of endometrium Sinusitis Dysuria Right flank pain Obese Screening for hypercholesterolemia Screening for hypothyroidism Left knee pain Breast cancer screening Annual physical exam Sacroiliac dysfunction Right foot pain Bilateral knee pain Lumbar back pain SOB (shortness of breath) COVID-19 Low iron COVID-19 Surgical History Hx of appendectomy H/O tubal ligation Family History Maternal Aunt Diabetes Liver cancer Father Diabetes Social History (Updated 05/14/23 @ 09:58 by Kadeem Jones PA-C) Household Members: Spouse and Children Housing: House Are you a primary complex care nurse practitioner to a significant other at home: No Do you presently have visiting nurse or other home services: No Alcohol intake: former Patient Tobacco Use Status: Former Tobacco user Quit Date: 17 years ago Tobacco use type: Cigarette Cigarette Packs Per Day: 0.5 e-Cigarette/Vaping Use: Never Used Second Hand Smoke Exposure: No service: No Current occupational status: employed 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 Chino Cottrell, Margie Weller, Elliot Bella and colleagues, with an educational chandler from [employer]. Review of Systems Const Denies body aches, Denies chills, Denies excessive sweating, Denies fatigue, Denies fever(s) and Denies headache(s) Eyes Denies blurry vision ENT Denies dysphagia, Denies vertigo, Denies dizziness, Denies headache(s), Denies hearing loss and Denies tinnitus Card Denies chest pain, Denies chest pain with activity, Denies syncope, Denies irregular heart rhythm and Denies dyspnea Resp Denies chest congestion, Denies cough, Denies hemoptysis, Denies dyspnea and Denies wheezing GI Denies abdominal pain, Denies melena, Denies hematochezia, Denies coffee ground emesis, Denies dysphagia, Denies diarrhea, Denies nausea and Denies vomiting Denies urinary frequency, Denies dysuria, Denies urinary hesitancy and Denies urinary urgency Musc Denies arthralgias, Denies limited range of motion, Denies muscle cramps and Denies muscle weakness Skin/Breast Denies rash and Denies skin ulcer Neuro Denies Abnormal speech present, Denies confusion, Denies vertigo, Denies dizziness, Denies syncope, Denies headache(s), Denies memory loss and Denies seizure-like activity Psych Denies anxiety, Denies confusion, Denies depression, Denies memory loss, Denies panic attacks and Denies paranoia Endo Denies excessive sweating, Denies fatigue, Denies flushing, Denies polydipsia and Denies polyuria Aller/Immun Denies wheezing Physical exam (Primary Care) Vital Signs: Last Vital Signs Pulse 76 05/14/23 09:43 BP 120/82 05/14/23 09:43 Pulse Ox 98 05/14/23 09:43 Oxygen Delivery Method Room Air 05/14/23 09:43 BMI result Body Mass Index 29.3 Tobacco/Smoking Status: Tobacco use Status Tobacco use date assessed 12/18/22 05/14/23 09:35 Patient Tobacco Use Status Former Tobacco user 05/14/23 09:35 Tobacco use type Cigarette 05/14/23 09:35 e-Cigarette/Vaping Use Never Used 05/14/23 09:35 Thrive Assessment: Date of Thrive Assessment Date Thrive assessed 12/18/22 05/14/23 09:35 Const General: cooperative, comfortable, no acute distress, alert and awake; No confusion Orientation/consciousness: oriented to person, oriented to place, patient oriented x3 and No confusion HENMT Head: Yes normocephalic Head images: 1. CIRCULAR BALD SPOT OVER AREA OUTLINED. Ears: external ears normal and TM's normal bilaterally Face and sinus: No sinus tenderness Mouth: Normal oral and palatal mucosa present and tongue normal Teeth and gingiva: dentition normal and gingiva normal Throat: Yes posterior oropharynx normal, Yes tonsils normal and Yes uvula midline Eyes Conjunctivae: conjunctivae normal Sclerae: sclerae normal Pupils: Equal, round and reactive pupils present EOM: EOMs intact bilaterally Direct Ophthalmoscopy: No no photophobia Neck Neck: Yes no lymphadenopathy, No tender and Yes no JVD Thyroid: Thyroid normal Carotids: no bruits Chest Chest palpation & inspection: no tenderness Resp Effort & Inspection: normal respiratory effort, no audible wheezes, not labored and no stridor Auscultation: no crackles, no rales, no rhonchi and no wheezes Cardio Jugular venous distension: no JVD Rate: regular rate, not bradycardic and not tachycardic Rhythm: regular rhythm Bruits: no carotid bruits Peripheral pulses: Peripheral pulses 2+ throughout GI Inspection: Yes normal to inspection, No abdominal wall ecchymosis and No visible herniation Palpation (GI): Soft to palpation, nontender, no guarding, not rigid and No hepatosplenomegaly present Auscultation: normoactive bowel sounds General: Yes no CVA tenderness Back/Spine/Pelvis Back: no CVA tenderness and No back tenderness Cervical Spine: cervical ROM normal Thoracic/Lumbar Spine: thoracic and lumbar spine normal to inspection, straight leg raise negative bilaterally, No thoraco-lumbar ROM limited and No lumbar spinal tenderness Skin Lesions: no lesions Rashes: no rashes Wounds: no wounds Neuro General: oriented to person, oriented to place, patient oriented x3, CN's II-XI intact bilaterally and No confusion Cranial nerves: Yes Equal, round and reactive pupils present and Yes Normal accommodation reflex present Cognition (Neuro): normal cognition Speech: No Abnormal speech present Gait exam (Neuro): Normal gait present Motor exam (neuro): 5/5 motor strength present throughout Extrem Right upper extremity: full ROM; no cyanosis Left upper extremity: full ROM; no cyanosis Right lower extremity: no edema Left lower extremity: no edema Psych Appearance: grossly normal Mental Status: mental status grossly normal Affect: normal affect Attitude: cooperative Thought process: Normal thought process present Results AMB Hemoglobin A1c AMB Hemoglobin A1c 5.2 % Last Edit by ZA Mednoza on 05/14/23 09:51 Results Reviewed Results Reviewed: Laboratory Last Values Hgb A1c (Clinic) 5.2 % (4.0-6.0) 05/14/23 09:51 Assessment and Plan Assessment & Plan (1) Annual physical exam: Code(s): Z00.00 - Encounter for general adult medical examination without abnormal findings (2) Elevated random blood glucose level: Code(s): R73.09 - Other abnormal glucose (3) Alopecia: Code(s): L65.9 - Nonscarring hair loss, unspecified Plan: Has noted alopecia over her scalp. She would like a dermatology evaluation. (4) Internal derangement of right knee: Code(s): M23.91 - Unspecified internal derangement of right knee Plan: Continues to follow pain management for continued right knee swelling and pain. Unclear etiology at this time though has recent MRI done and is awaiting results. (5) Iron (Fe) deficiency anemia: Code(s): D50.9 - Iron deficiency anemia, unspecified Qualifiers: Iron deficiency anemia type: unspecified iron deficiency Qualified Code(s): D50.9 - Iron deficiency anemia, unspecified Plan: Continues to follow hematology. Continues on iron supplementation. Most recent hemoglobin stable. (6) Colon cancer screening: Code(s): Z12.11 - Encounter for screening for malignant neoplasm of colon Plan: Patient interested in colonoscopy. Will refer to GI (7) Screening for diabetes mellitus (DM): Code(s): Z13.1 - Encounter for screening for diabetes mellitus Orders: Orders IRON PROFILE Today D50.9 - Iron deficiency anemia, unspecified Complete Blood Count no Diff Today D50.9 - Iron deficiency anemia, unspecified Vitamin B12 and Folate Today D50.9 - Iron deficiency anemia, unspecified, E53.8 - Deficiency of other specified B group vitamins Comprehensive [place]. Panel Fast Today Z13.1 - Encounter for screening for diabetes mellitus AMB Hemoglobin A1c Today R73.09 - Other abnormal glucose Referrals Dermatology Referral L65.9 - Nonscarring hair loss, unspecified Gastroenterology Referral Z12.11 - Encounter for screening for malignant neoplasm of colon Coding Level of Care Code Est Pt Prev Care 40-64y(27650) Diagnoses Annual physical exam Z00.00 Elevated random blood glucose level R73.09 Alopecia L65.9 Internal derangement of right knee M23.91 Iron deficiency anemia, unspecified iron deficiency anemia type D50.9 Iron deficiency anemia type: unspecified iron deficiency Colon cancer screening Z12.11 Screening for diabetes mellitus (DM) Z13.1
[2023-05-14 09:43] VITALS: BP 120/82; PULSE 76; O2SAT 98; BMI 29.3
== END 2023-05-14 10:14 | disposition home or self-care (01) ==
PROVIDERS: Visit Provider Physician Assistant
DX: Z00.00 Encounter for general adult medical examination without abnormal findings (principal); R73.09 Other abnormal glucose; L65.9 Nonscarring hair loss, unspecified; M23.91 Unspecified internal derangement of right knee; D50.9 Iron deficiency anemia, unspecified; Z12.11 Encounter for screening for malignant neoplasm of colon; Z13.1 Encounter for screening for diabetes mellitus
CPT/HCPCS: 83036; 99396

== ENCOUNTER 2023-05-15 08:18 | Outpatient (AMB) | payer OTHER, SELFPAY ==
--- NOTE | 2023-05-15 08:18 | MHC.OFFVIS ---
Intake Intake Visit Reasons: Tele- MRI reviewEVAL FOR LATERAL RETINACULUM. Intake Note: Yuriy is a 47 year old female who presents today for a telehealth visit for her MRI review of her right knee. Allergies oxycodone [From Percocet] Allergy (Intermediate, Verified 05/15/23 08:21) ITCHING [facility] Tele- MRI reviewEVAL FOR LATERAL RETINACULUM. HPI Details 47-year-old female who presents for a telehealth appointment today for a follow up of right knee pain and review of her MRI. She reports that her knee is feeling much better. She continues to have occasional pain here and there and numbness along the lateral aspect of her knee. [facility] Medical History (Updated 05/14/23 @ 10:08 by Kadeem Jones PA-C) Screening for diabetes mellitus (DM) Annual physical exam Abnormal ultrasound of endometrium Sinusitis Dysuria Right flank pain Obese Screening for hypercholesterolemia Screening for hypothyroidism Left knee pain Breast cancer screening Annual physical exam Sacroiliac dysfunction Right foot pain Bilateral knee pain Lumbar back pain SOB (shortness of breath) COVID-19 Low iron COVID-19 Surgical History Hx of appendectomy H/O tubal ligation Family History Maternal Aunt Diabetes Liver cancer Father Diabetes Social History Household Members: Spouse and Children Housing: House Are you a primary resident caregiver to a significant other at home: No Do you presently have visiting nurse or other home services: No Alcohol intake: former Patient Tobacco Use Status: Former Tobacco user Quit Date: 17 years ago Tobacco use type: Cigarette Cigarette Packs Per Day: 0.5 e-Cigarette/Vaping Use: Never Used Second Hand Smoke Exposure: No service: No Current occupational status: employed 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 Assessment & Plan Assessment & Plan (1) Internal derangement of right knee: Code(s): M23.91 - Unspecified internal derangement of right knee Plan 47-year-old female who presents for a telehealth appointment today for a follow up of right knee pain and review of her MRI. She reports that her knee is feeling much better. She continues to have occasional pain here and there and numbness along the lateral aspect of her knee. I discussed the role of physical therapy and the dedication needed to complete all physical therapy sessions and the at home exercise program. She is hesitate at this time due to how busy her currently lifestyle is with her children and work. No surgical intervention is needed at this time. She will consider if and when she might pursue this treatment. I also discussed the role of an EMG to explore the numbness she is having but she has deferred at this time. Follow up will be PRN, or sooner if needed. MRI of the right knee, obtained on 03/22/2023, revealed: 1. Mild patellofemoral compartment osteoarthritis, unchanged as compared to prior. 2. A 2 cm focus of multilocular cystic change in the superolateral aspect of Hoffa's fat pad (just deep to the lateral retinaculum) likely corresponds to reactive cystic change from patellar tendon - lateral femoral condyle friction syndrome. 3. Intact ligaments and menisci. 4. A 5 mm loose body in the anterior recess of the lateral compartment. Patient Instructions: Scribed for Destinee Child PA-C by Nena Packer back office medical assistant, on 05/15/2023 at 8:19 am, EST. Telehealth Telehealth Location of provider rendering services: practice address Location of patient: address on file Patient Identification confirmed using: Name, : Yes Telehealth method: voice only Patient verbally consented to treatment: Yes Patient verbally consented to billing insurance company: Yes Patient informed of any privacy concerns related to visit: Yes Minutes spent on Phone/Video with Pt.: 10 Coding Level of Care Code Tele Est Pt Level 3 (68788) Diagnoses Internal derangement of right knee M23.91
== END 2023-05-15 08:23 | disposition home or self-care (01) ==
LOC: HO.HOS 08:18
PROVIDERS: PCP Physician Assistant; Visit Provider Physician Assistant
DX: M23.91 Unspecified internal derangement of right knee (principal)
CPT/HCPCS: 99213

== ENCOUNTER → 2023-05-15 08:18 | Outpatient (BNVA) | payer OTHER, SELFPAY | PROVIDERS: PCP Physician Assistant; Visit Provider Physician Assistant ==

== ENCOUNTER 2023-07-11 12:54 | Emergency (ER) | payer OTHER, SELFPAY ==
--- NOTE | ~2023-07-11 | XR_ITS ---
EXAMINATION: XR chest 1V CLINICAL INFORMATION: Pneumonia COMPARISON: 08/14/2020 TECHNIQUE: Single portable frontal view. Tubes and lines: None Lungs and pleura: Both lungs are clear. Heart and mediastinum: The mediastinum is within normal limits.. Bones/soft tissue: Skeletal structures included are normal for patient's age. XR/XR chest 1V IMPRESSION: No radiographic evidence of acute cardiopulmonary disease.
[2023-07-11 13:02] VITALS: BP 127/80; PULSE 93; RESP 18; TEMP 37; O2SAT 99; BMI 28.2
--- NOTE | 2023-07-11 13:05 | ED.GENADULT ---
HPI - General Adult General Chief complaint: Upper Respiratory Symptoms Stated complaint: Sinus Infection Time Seen by Provider: 07/11/23 13:32 Source: patient Mode of arrival: ambulatory Limitations: no limitations History of Present Illness HPI narrative: Patient is a 47 yr old female with a past medical history of endometrial hyperplasia, anemia, HUMBERTO, and BPV presents with fever, chills, cough and headache for over 1 week. She reports she thought she was getting better but now states she feels pressure all in her face, mostly behind her nose, eyes and teeth as well as a 8/10 headache, productive cough of green mucus, post nasal drip, loss of appetite and fatigue. Reports SOB. Denies recent travel, sick contacts, chest pain, sore throat, nausea, vomiting, diarrhea, abdominal pain, urinary symptoms, vision changes or hearing changes. Patient reports her last fever was last night, but has not been taking her temperatures. She states she knows it was a fever due to having chills and sweats. Patient reports mild improvement in her symptoms with Tylenol and Nyquill. 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 She also has a 16yr old child who is also well. Related Data Home Medications Medication Instructions Recorded Confirmed cyanocobalamin (vitamin B-12) 1,000 mcg PO DAILY 12/22/22 05/14/23 1,000 mcg tablet Previous Rx's Medication Instructions Recorded ferrous sulfate 325 mg (65 mg 325 mg PO DAILY #90 tabs 05/25/22 iron) tablet cyanocobalamin (vitamin B-12) 1,000 mcg PO DAILY #90 caps 07/06/23 1,000 mcg capsule ferrous sulfate 325 mg (65 mg 325 mg PO DAILY #90 tabs 07/06/23 iron) tablet albuterol sulfate 90 mcg/actuation 2 inh inhalation Q4-6H PRN 07/11/23 breath activated powder inhaler shortness of breath or wheezing #1 ea benzonatate 100 mg capsule 100 mg PO BID PRN cough #20 caps 07/11/23 doxycycline hyclate 100 mg capsule 100 mg PO BID 10 days #20 caps 07/11/23 prednisone 50 mg tablet 50 mg PO DAILY 5 days #5 tabs 07/11/23 Allergies Allergy/AdvReac Type Severity Reaction Status Date / Time oxycodone [From Percocet] Allergy Intermediate ITCHING Verified 07/11/23 13:04 Review of Systems Review of Systems: Constitutional : No Weight loss, + Fever, + Chills, + Fatigue, NoMalaise ENT/Mouth : No sore throat, + Rhinorrhea Eyes: No Eye Pain, No Swelling, No Redness Cardiovascular : No Chest Pain, + SOB, No Dyspnea on Exertion, No Orthopnea, No Edema, No Palpitations Respiratory : + Cough, + Sputum, + Wheezing Gastrointestinal : No Nausea, No Vomiting, No Diarrhea, No Constipation, No abdominal Pain, No Hematochezia, No Melena Genitourinary : No Dysuria, No Urinary Frequency, No Hematuria, Musculoskeletal : No joint pain, No Myalgias, No Joint Swelling Skin : No Skin Lesions, No rash Neuro : No Weakness, No Numbness, No Dizziness, + Headache Psych : No Anxiety/Panic, No Depression Heme/Lymph: No Bruising, No Bleeding,No Lymphadenopathy Endocrine : No Polyuria, No Polydipsia All other systems reviewed and are negative Yes all other systems are reviewed and are negative PMFSH Past Medical History Attestation statement: The following information was validated with the patient. Source: old records reviewed and nursing notes reviewed Medical History (Updated 07/11/23 @ 14:38 by JAMEY Escobar) Screening for diabetes mellitus (DM) Annual physical exam Abnormal ultrasound of endometrium Sinusitis Dysuria Right flank pain Obese Screening for hypercholesterolemia Screening for hypothyroidism Left knee pain Breast cancer screening Annual physical exam Sacroiliac dysfunction Right foot pain Bilateral knee pain Lumbar back pain SOB (shortness of breath) COVID-19 Low iron COVID-19 Surgical History Hx of appendectomy H/O tubal ligation Family History Family History Maternal Aunt Diabetes Liver cancer Father Diabetes Social History Social History Household Members: Spouse and Children Housing: House Are you a primary child day care teacher to a significant other at home: No Do you presently have visiting nurse or other home services: No Alcohol intake: former Patient Tobacco Use Status: Former Tobacco user Quit Date: 17 years ago Tobacco use type: Cigarette Cigarette Packs Per Day: 0.5 e-Cigarette/Vaping Use: Never Used Second Hand Smoke Exposure: No Advance Directives: No Advance Directives Information Provided: No service: No Current occupational status: employed Current occupation: [employer] Cognitive needs: No Hearing needs: No Vision needs: No Physical Exam ED Vital Signs: Vital Signs - 24 hr 07/11/23 13:02 Temperature 98.6 F Pulse Rate 93 Respiratory Rate 18 Blood Pressure 127/80 Pulse Oximetry 99 Oxygen Delivery Method Room Air BMI result Body Mass Index 28.2 vs wnl Appearance: Alert.? Oriented X3.? No acute distress.?Fatigued appearing. Head: Normocephalic, atraumatic, no step-offs or deformities Eyes: Pupils equal, round and reactive to light.? ENT: + Erythema of posterior pharynx. No tonsilar exudates or edema.?External ears normal, TMs normal bilaterally and EAC's normal. + clear effusion of left ear. No pain with manipulation of external ears bilaterally. No mastoid tenderness. + tenderness to percussion of frontal and maxillary sinuses. Neck: Normal inspection.? Neck supple.?Full ROM, no pain with movement. CVS: Normal heart rate and rhythm.? Pulses normal.? Respiratory: No respiratory distress.?Decreased breath sounds on right.?No wheezing. Abdomen: Soft and nontender.? Skin: Skin warm and dry.? Normal skin color.? Normal skin turgor.? Extremities: No lower extremity edema.? No calf ttp. 5/5 strength to bilateral upper and lower extremities Back: No midline tenderness, no C-spine tenderness, full range of motion, no CVA tenderness bilaterally Neuro: Oriented X 3.? No motor deficit.? No sensory deficit. CN 2-12 intact Course Course Course Narrative: RME: 47 yold female presents to the ED for facial pain, green nasal discharge, and sore throat for one week. patient states no chest pain or SOB. covid, strep, and influenza ordered Reevaluation(s) Reevaluation #1: Flu, COVID, strep negative. X-ray no radiographic of acute pulmonary disease. Vital signs stable saturating 99% on room air. Patient to be discharged with treatment for bronchitis possibly developing pneumonia. Educated patient on diagnosis and treatment plan, answered all question, patient verbalizes understanding. At this time patient will be discharged home, advised to return with new or worsening symptoms. Educated on worrisome signs and symptoms and when to return. At this time I feel comfortable discharge home. Time: 15:22 Medications Administered Discontinued Medications Generic Name Dose Route Start Last Admin Trade Name Angie PRN Reason Stop Dose Admin Acetaminophen 975 mg 07/11/23 14:02 07/11/23 14:24 Acetaminophen 325 Mg Tablet PO 07/11/23 14:03 975 mg ONCE ONE Administration Medical Decision Making Medical Decision Making [facility] Narrative: Patient is a 47 yr old female with a past medical history of endometrial hyperplasia, anemia, HUMBERTO, and BPV presents with fever, chills, cough and headache for 1 week. Now complaining of facial pressure, productive cough of green sputum, fatigue, headache, SOB, sinus pressure and post nasal drip. PE significant for tenderness to percussion of the frontal and maxillary sinuses, cervical lymphadenopathy, left clear effusion TM, and decreased breath sounds on the right. Most likely URI vs sinusitis vs pneumonia. Unlikely acs,pe (perc -) ,COVID, Influenza, Strep throat, Plumas, sepsis, metabolic derangements, otitis media, bronchitis, epiglottits due to uvula midline and absence of stridor. Plan labs, imaging? Differential Diagnosis Differential Diagnoses: The differential diagnosis associated with the presentation includes Most likely URI vs sinusitis vs pneumonia. Unlikely acs,pe (perc -) COVID, Influenza, Strep throat, Pl[place], sepsis, metabolic derangements, otitis media, bronchitis, epiglottits. Admission/Observation Consideration of admission/observation: Escalation of care including admission/observation considered Lab Data [facility] Lab Attestation statement: I reviewed the patient's lab results. Negative for strep, COVID and influenza. Labs: Lab Results 07/11/23 Range/Units 13:13 COVID-19 (COLE) Negative (Negative) COVID-19 Clin Com See Note Influenza Type A (ERASTO) Negative (Negative) Influenza Type B (ERASTO) Negative (Negative) Influenza A & B Note See Note S. pyogenes GrpA ERASTO Negative (Negative) Independent Interpretation I performed an independent interpretation of an: Plain X-Ray (XR/XR chest 1V IMPRESSION: No radiographic evidence of acute cardiopulmonary disease. ) Radiology Impression Discussion of test interpretation with radiology: I have reviewed the radiologist's reading. Radiologist Impression: XR/XR chest 1V IMPRESSION: No radiographic evidence of acute cardiopulmonary disease. External Record Review External record reviewed: Inpatient record, Outpatient record, Prior outpatient labs, Prior outpatient radiology, Primary care record and Outside ED record Tests considered The following testing was considered but not selected: Considered basic labs; however would not change patients disposition, no hypoxia. Prescription Management I considered prescription management with: Pain Medication Core Measures AMI core measures followed: Yes Critical Care Time Critical Care Time Critical Care Time: No Discharge Plan Discharge Clinical Impression: Bronchitis Patient Disposition: Home, Self-Care Instructions: Acute Bronchitis (ED) Additional Instructions: Take your medications as prescribed. If you were prescribed antibiotics today, it is important that you take your medication to their entirety, do not skip any doses, do not finish them early. Follow-up with your primary care provider this week. Return to the emergency department with new or worsening symptoms. Such as fevers, chills, chest pain, shortness of breath, nausea, vomiting, dizziness, headache, vision changes, lethargy In case of emergency call 911 XR/XR chest 1V IMPRESSION: No radiographic evidence of acute cardiopulmonary disease. Prescriptions: New doxycycline hyclate 100 mg capsule 100 mg PO BID 10 Days Qty: 20 0RF benzonatate 100 mg capsule 100 mg PO BID PRN (Reason: cough) Qty: 20 0RF prednisone 50 mg tablet 50 mg PO DAILY 5 Days Qty: 5 0RF albuterol sulfate 90 mcg/actuation aerosol powdr breath activated 2 inh inhalation Q4-6H PRN (Reason: shortness of breath or wheezing) Qty: 1 0RF No Action cyanocobalamin (vitamin B-12) 1,000 mcg Capsule 1,000 mcg PO DAILY Qty: 90 5RF ferrous sulfate 325 mg (65 mg iron) Tablet 325 mg PO DAILY Qty: 90 4RF ferrous sulfate 325 mg (65 mg iron) tablet 325 mg PO DAILY Qty: 90 14RF cyanocobalamin (vitamin B-12) 1,000 mcg tablet 1,000 mcg PO DAILY Referrals: Kadeem Jones PA-C [Primary Care Provider] - 2 days Stand Alone Forms: Work/School Release Interventions: ED Discharge Assessment Last Done: 07/11/23 15:31 Discharge Date/Time: 07/11/23 15:34
[2023-07-11 13:37] LABS: IDNOW Serial# 6674DD1D; Strep A Nucleic Acid Negative (Negative)
[2023-07-11 13:41] LABS: COVID-19 Test Negative (Negative); IDNOW Serial# 152EDE1D
[2023-07-11 13:43] LABS: IDNOW Serial# 58CA691E; Influenza A Negative (Negative); Influenza B2 Negative (Negative)
[2023-07-11] MEDS: Acetaminophen 325 MG TABLET 975 MG PO (14:24)
--- NOTE | 2023-07-11 14:25 | PC.NURSE ---
pt a&ox3, medicated for headache 12/18 per order
== END 2023-07-11 15:34 | disposition home or self-care (01) ==
PROVIDERS: Physician Assistant; Emergency Provider Emergency Medicine Emergency Medical Services; PCP Physician Assistant
DX: J40 Bronchitis, not specified as acute or chronic (principal); Z11.52 Encounter for screening for COVID-19; R51.9 Headache, unspecified
CPT/HCPCS: 71045; 87502; 87635; 87651; 99283

== ENCOUNTER 2023-07-20 13:58 | Outpatient (AMB) | payer OTHER, SELFPAY ==
--- NOTE | 2023-07-20 14:00 | A.OFFVIS_ITS ---
Intake Vital Signs 07/20/23 14:04 Height 5 ft 11 in Weight 211 lb 3.245 oz BMI 29.5 BP 120/72 Blood Pressure Location Rt brachial Position Sitting Pulse 83 Intake Visit Reasons: Colonoscopy Screening Intake Note: Patient presents to office as a new patient for colonoscopy screening. CC: Patient denies having any GI symptoms or concern. Magneto Specialist Required: No Accompanied by: Self / Same As Patient Allergies oxycodone [From Percocet] Allergy (Intermediate, Verified 07/20/23 14:09) ITCHING HPI Colonoscopy Screening HPI Details 47-year-old female here for preprocedura l meeting to discuss a screening colonoscopy. She is referred by Kadeem Jones of [facility] primary care. PMX Anemia Alopecia Uterine myoma Endometrial hyperplasia Benign positional vertigo Sacroiliac dysfunction Low back pain * SURGICAL HISTORY Appendectomy Tubal ligation DRAINAGE OF RIGHT THIGH HEMATOMA Gastric bypass 2006 Cervical discectomy C5 * ALLERGIES Oxycodone * [employer] LABS: Laboratory Tests 02/23/23 08:54 WBC 4.4 L Hgb 13.3 Hct 40.7 Plt Count 177 Estimated GFR > 60 Total Bilirubin 1.0 AST 18 ALT 14 Alkaline Phosphata se 107 TODAY'S VISIT This is her first colonoscopy. She denies any bowel or upper GI problems. There are no prior problems with anesthesia or sedation. She denies any cardiac or respiratory problems. No ID problems. There is no known FHX or crc or polyps. [facility] Medical History Colon cancer screening Annual physical exam Screening for diabetes mellitus (DM) Anemia Abnormal ultrasound of endometrium Sinusitis Dysuria Right flank pain Obese Screening for hypercholesterolemia Screening for hypothyroidism Left knee pain Breast cancer screening Annual physical exam Sacroiliac dysfunction Right foot pain Bilateral knee pain Lumbar back pain SOB (shortness of breath) COVID-19 Low iron COVID-19 Surgical History History of surgical procedure H/O gastric bypass Hx of appendectomy H/O tubal ligation Family History Maternal Aunt Diabetes Liver cancer Father Diabetes Maternal Uncle Stomach cancer Social History Household Members: Spouse and Children Housing: House Are you a primary caretaker resort to a significant other at home: No Do you presently have visiting nurse or other home services: No Alcohol intake: former Patient Tobacco Use Status: Former Tobacco user Quit Date: 17 years ago Tobacco use type: Cigarette Cigarette Packs Per Day: 0.5 e-Cigarette/Vaping Use: Never Used Second Hand Smoke Exposure: No service: No Current occupational status: employed 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- [employer] Cognitive needs: No Hearing needs: No Vision needs: No Female Reproductive History Menstrual Age of Menarche: 13 Review of Systems Const Denies fatigue, Denies fever(s), Denies night sweats, Denies poor appetite and Denies weight loss Eyes Reports requires corrective lenses ENT Reports Normal hearing present, Denies dental pain, Denies dysphagia, Denies hearing loss, Denies mouth pain, Denies odynophagia, Denies throat swelling, Denies tongue swelling and Reports other (Dentition adequate) GI Details: Denies abdominal pain, Denies melena, Denies bloating, Denies hematochezia, Denies constipation, Denies GI cramping, Denies dysphagia, Denies excessive flatus, Denies early satiety, Denies heartburn, Denies diarrhea, Denies nausea, Denies odynophagia, Denies vomiting and Denies hematemesis Skin/Breast Denies pruritus, Denies lesions, Denies rash and Denies jaundice Neuro Reports Normal hearing present and Denies Abnormal speech present Endo Denies fatigue Aller/Immun Denies throat swelling and Denies tongue swelling Physical Exam Vital Signs: Last Vital Signs Pulse 83 07/20/23 14:04 BP 120/72 07/20/23 14:04 BMI result Body Mass Index 29.5 Const General: cooperative, no acute distress, well developed and well groomed Nutritional Appearance: well nourished, obese and overweight Orientation/consciousness: oriented to person, oriented to place and oriented to time Limitations: No language barrier, ambulation with cane, ambulation with walker and wheelchair HEENT Head: Yes normocephalic and Yes atraumatic Eyes General: appearance normal, both eyes and all related structures Pupils: Equal, round and reactive pupils present Neck Neck: Yes normal visual inspection and Yes no lymphadenopathy Thyroid: Thyroid normal Resp Effort & Inspection: normal respiratory effort and able to speak in complete sentences Auscultation: clear to auscultation bilaterally Cardio Rate: regular rate Rhythm: regular rhythm Heart sounds: Normal, physiologic split S2 sound present Peripheral pulses: radial pulses present and posterior tibial pulses present GI Inspection: No distended and No Abdominal panniculus present Palpation (GI): Soft to palpation, nontender, no guarding, not rigid, No hepatosplenomegaly present and Hepatosplenomegaly present Percussion: Yes normal to percussion Auscultation: normal bowel sounds Rectal Exam - Female: deferred Skin General skin exam: no rashes or lesions noted, turgor normal, skin not dry, no jaundice, No spider nevi and no striae Rashes: no rashes Nails: normal Neuro General: oriented to person, oriented to place and oriented to time Cranial nerves: Yes Equal, round and reactive pupils present and Yes Normal hearing present Speech: No Abnormal speech present Extrem General: Yes normal to inspection, No clubbing, No cyanosis and No edema Psych Thought process: Normal thought process present and not confabulating Thought content: Normal thought content present Insight: Good insight present (Psych) Judgement: Good judgement present (Psych) Results Reviewed Results Reviewed: Laboratory Tests 02/23/23 08:54 WBC 4.4 L Hgb 13.3 Hct 40.7 Plt Count 177 Estimated GFR > 60 Total Bilirubin 1.0 AST 18 ALT 14 Alkaline Phosphatase 107 Assessment & Plan Assessment & Plan (1) Pre-op examination: Code(s): Z01.818 - Encounter for other preprocedural examination Plan This is her first colonoscopy. She denies any bowel or upper GI problems. There are no prior problems with anesthesia or sedation. She denies any cardiac or respiratory problems. No ID problems. There is no known FHX or crc or polyps. Orders: Orders Colonoscopy - GI Use Only Today Z01.818 - Encounter for other preprocedural examination Medications: New sodium,potassium,mag sulfates 17.5-3.13-1.6 gram (Suprep Bowel Prep Kit) 480 mL orally; 354 mL 0RF Z01.818 - Encounter for other preprocedural examination Coding Level of Care Code Est Pt Level 3 (71448) Diagnoses Pre-op examination Z01.818
[2023-07-20 14:04] VITALS: BP 120/72; PULSE 83; BMI 29.5
== END 2023-07-20 14:51 | disposition home or self-care (01) ==
PROVIDERS: PCP Physician Assistant; Visit Provider Nurse Practitioner
DX: Z01.818 Encounter for other preprocedural examination (principal)
CPT/HCPCS: 99213

== ENCOUNTER → 2023-07-20 13:58 | Outpatient (BNVA) | payer OTHER, SELFPAY | PROVIDERS: PCP Physician Assistant; Visit Provider Nurse Practitioner | DX: Z01.818 Encounter for other preprocedural examination (principal) | CPT/HCPCS: 99212 ==

== ENCOUNTER 2023-08-07 09:48 | Outpatient (REF) | payer OTHER, SELFPAY | END 2023-08-07 09:49 | disposition home or self-care (01) | LOC: HO.MAMMO 09:48 | PROVIDERS: PCP Physician Assistant; Visit Provider Physician Assistant | DX: Z12.31 Encounter for screening mammogram for malignant neoplasm of breast (principal) | CPT/HCPCS: 77063; 77067 ==

== ENCOUNTER → 2023-08-07 10:00 | Outpatient (BNV) | payer OTHER, SELFPAY | PROVIDERS: PCP Physician Assistant; Visit Provider Radiology Diagnostic Radiology | DX: Z12.31 Encounter for screening mammogram for malignant neoplasm of breast (principal) | CPT/HCPCS: 77063; 77067 ==

== ENCOUNTER 2023-09-14 10:23 | Outpatient (REF) | payer OTHER, SELFPAY | END 2023-09-14 10:24 | disposition home or self-care (01) | LOC: HO.SH 10:23 | PROVIDERS: PCP Physician Assistant; Visit Provider Physician Assistant | DX: Z01.118 Encounter for examination of ears and hearing with other abnormal findings (principal); H90.3 Sensorineural hearing loss, bilateral | CPT/HCPCS: 92557; 92567 ==

== ENCOUNTER 2023-11-15 08:45 | Day surgery (SDC) | payer OTHER, SELFPAY ==
[2023-11-13 15:07] VITALS: BMI 29.4
--- NOTE | 2023-11-14 11:04 | HO.ANESPROP2 ---
Documented by User: Rupa Cordoba NP 11/14/23 11:04 HPI - Anesthesia Eval Consult details Narrative: 47yo F for Colonoscopy PMFSH Active Problems Active Problems: All Active Problems Pre-op examination (Acute) Alopecia (Acute) Right knee pain (Acute) Internal derangement of right knee (Acute) Left SNHL (Acute) Uterine myoma (Acute) Endometrial polyp (Acute) Unsatisfactory cervical Papanicolaou smear (Acute) Endometrial hyperplasia (Acute) Anemia (Acute) Cervical myelopathy (Acute) Iron (Fe) deficiency anemia (Acute) BPV (benign positional vertigo) (Acute) Left knee pain (Acute) Past Medical History Medical History Colon cancer screening Abnormal ultrasound of endometrium Sinusitis Dysuria Right flank pain Obese Screening for hypercholesterolemia Screening for hypothyroidism Screening for diabetes mellitus (DM) Left knee pain Breast cancer screening Sacroiliac dysfunction Right foot pain Bilateral knee pain Lumbar back pain SOB (shortness of breath) Low iron Anemia Family History Family History Maternal Aunt Diabetes Liver cancer Father Diabetes Maternal Uncle Stomach cancer Family history of problems with anesthesia: No Surgical History Surgical History S/P cervical disc replacement Hx of dilation and curettage History of surgical procedure H/O gastric bypass Hx of appendectomy H/O tubal ligation History of Problems with Anesthesia: No Social History Social History Household Members: Spouse and Children Housing: House Are you a primary customer care associate to a significant other at home: No Do you presently have visiting nurse or other home services: No Alcohol intake: former Patient Tobacco Use Status: Former Tobacco user Tobacco use type: Cigarette Cigarette Packs Per Day: 0.5 e-Cigarette/Vaping Use: Never Used Second Hand Smoke Exposure: No Use of substances other than those prescribed or required for medical reasons: No Are you DNR?: No Advance Directives: No Advance Directives Information Provided: Yes service: No Current occupational status: employed 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- [employer] Cognitive needs: No Hearing needs: No Vision needs: No Meds Allergies Allergy/AdvReac Type Severity Reaction Status Date / Time oxycodone [From Percocet] Allergy Intermediate ITCHING Verified 07/20/23 14:09 Exam Height,Weight and Vital Signs: Height 5 ft 11 in Weight 95.708 kg Assessment and Plan Assessment Anesthesia Assessment: Chart Reviewed Final Anesthetic Review Family History of Problems with Anesthesia: No History of Problems with Anesthesia: No Documented by User: Alis Cuadra MD 11/15/23 10:36 [facility] Active Problems Active Problems: All Active Problems Pre-op examination (Acute) Alopecia (Acute) Right knee pain (Acute) Internal derangement of right knee (Acute) Left SNHL (Acute)-?Sensori-Neural Hearing Loss Uterine myoma (Acute) Endometrial polyp (Acute) Unsatisfactory cervical Papanicolaou smear (Acute) Endometrial hyperplasia (Acute) Anemia (Acute) Cervical myelopathy (Acute) Iron (Fe) deficiency anemia (Acute) BPV (benign positional vertigo) (Acute) Left knee pain (Acute) Past Medical History Medical History Colon cancer screening Abnormal ultrasound of endometrium Sinusitis Dysuria Right flank pain Obese Screening for hypercholesterolemia Screening for hypothyroidism Screening for diabetes mellitus (DM) Left knee pain Breast cancer screening Sacroiliac dysfunction Right foot pain Bilateral knee pain Lumbar back pain SOB (shortness of breath) Low iron Anemia Family History Family History Maternal Aunt Diabetes Liver cancer Father Diabetes Maternal Uncle Stomach cancer Family history of problems with anesthesia: No Surgical History Surgical History S/P cervical disc replacement Hx of dilation and curettage History of surgical procedure H/O gastric bypass Hx of appendectomy H/O tubal ligation History of Problems with Anesthesia: No Social History Social History Household Members: Spouse and Children Housing: House Are you a primary customer care associate to a significant other at home: No Do you presently have visiting nurse or other home services: No Alcohol intake: former Patient Tobacco Use Status: Former Tobacco user Tobacco use type: Cigarette Cigarette Packs Per Day: 0.5 e-Cigarette/Vaping Use: Never Used Second Hand Smoke Exposure: No Use of substances other than those prescribed or required for medical reasons: No Are you DNR?: No Advance Directives: No Advance Directives Information Provided: Yes service: No Current occupational status: employed Current occupation: [employer] Cognitive needs: No Hearing needs: No Vision needs: No Meds Allergies Allergy/AdvReac Type Severity Reaction Status Date / Time oxycodone [From Percocet] Allergy Intermediate ITCHING Verified 07/20/23 14:09 Exam Height,Weight and Vital Signs: Height 5 ft 11 in Weight 95.708 kg Vital Signs Temp Pulse Resp BP Pulse Ox O2 Del Method 11/15/23 09:00 97.4 F 70 16 122/83 98 Room Air Airway Mallampati Class: II TM Dist: >3cm Neck ROM: Full Loose/Missing/Broken Teeth: Yes (Bottom front- dental posts for dental implants) Heart: RRR Lungs: CTAB Assessment and Plan Assessment Anesthesia Assessment: Anesthesia Plan Discussed and Chart Reviewed Final Anesthetic Review Family History of Problems with Anesthesia: No History of Problems with Anesthesia: No NPO: Yes ASA Class: II Final Preanesthetic Review: No Changes in Pt Med Stat, Meds/Allgs Chart Reviewed, Consent Obtained/Reviewed and Anes Risks/Benef Reviewed Patient Risk: Low Procedure Risk: Low Assessment/Block/Sedation in SS: Assess/Block/Sedation-SS Anesthetic Plan Anesthetic Plan: TIVA Disposition: Standard PACU
[2023-11-15 09:00] VITALS: BP 122/83; PULSE 70; RESP 16; TEMP 36.3; O2SAT 98; BMI 28.8
[2023-11-15] MEDS: Lactated Ringers 1,000 ML 100 ML IVCONT (09:16)
--- NOTE | 2023-11-15 10:07 | MHC.SHP ---
Pre-Procedural Eval Section A - 24 Hr Update-Section A only Date of Service: 11/15/23 Section B - Complete if H&P > 30 days Chief Complaint: screening Relevant Family History (Specify if Yes): No Relevant Social History: None Present Medications: see Short Stay Collaborative assessment Medical History: Significant History (Abnormal ultrasound of endometrium Sinusitis Dysuria Right flank pain Obese Screening for hypercholesterolemia Screening for hypothyroidism Screening for diabetes mellitus (DM) Left knee pain Breast cancer screening Sacroiliac dysfunction Right foot pain Bilateral knee pain Lumbar back pain SOB (eduard) History of Previous Operations: Relevant previous surgery/procedure and date(s) (S/P cervical disc replacement Hx of dilation and curettage History of surgical procedure H/O gastric bypass Hx of appendectomy H/O tubal ligation) Allergies: Allergies Allergy/AdvReac Type Severity Reaction Status Date / Time oxycodone [From Percocet] Allergy Intermediate ITCHING Verified 07/20/23 14:09 Review of Systems Sugical H&P ROS: Negative: Constitution, Cardiovascular, Respiratory, Neurological, Psychiatric, Hem-Onc, Allergic/Immunologic, Gastrointestinal, Genitourinary, Musculoskeletal, Integumentary, Endocrine and Eyes/Ears/Nose/Throat Exam Surgical H&P Exam: Normal: HEENT, Normal: Heart, Normal: Lungs, Normal: Extremities, Normal: Abdomen, Normal: Skin and Normal: Neurological Plan Diagnosis/Plan: Unchanged I have reviewed the history and physical and performed a pertinent physical examination on my patient. No changes have occurred unless specified. Time Spent With Patient Time: Total time managing care of this patient today ____ minutes.
--- NOTE | 2023-11-15 10:09 | HO.OPN-COLON ---
Colonoscopy Operative Note Operative Note Date of Service: 11/15/23 Narrative: Operative Information Procedure Description: Colonoscopy Indication: screening Anesthesia: MAC COLONOSCOPY Instrument: Olympus variable stiffness pediatric scope 190L Colonoscopy Monitoring: Vital signs and clinical assessment, continuous EKG monitoring, Pulse oximetry, Carbon Dioxide monitoring and blood pressure monitoring were done throughout the procedure. Colon withdrawal time was 9 minutes. Procedure: The patient was placed in the left lateral decubitis position and pre-procedure medications were administered. After a digital rectal examination of the ano-rectum, the video colonoscope was inserted into the rectum and advanced through the colon to the cecum/TI. The colonoscope was slowly withdrawn in a retrograde panoramic fashion and the colon mucosa was carefully examined including a retroflexed view of the rectum. Findings and interventions are described below. Procedure Difficulty: easy Findings: Terminal Ileum-normal Cecum:normal Right sided retroflexion: normal Ascending Colon: normal Transverse Colon -normal Descending Colon:normal Sigmoid Colon: normal Rectum: Retroflexion with small internal hemorrhoids seen, grade I Anorectum - normal Intervention: none Colon preparation: [place] Bowel Preparation Scale Right colon; 2 Transverse colon: 3 Left colon; 3 (0 = Unprepared colon segment with mucosa not seen due to solid stool that cannot be cleared. 1 = Portion of mucosa of the colon segment seen, but other areas of the colon segment not well seen due to staining, residual stool and/or opaque liquid. 2 = Minor amount of residual staining, small fragments of stool and/or opaque liquid, but mucosa of colon segment seen well. 3 = Entire mucosa of colon segment seen well with no residual staining, small fragments of stool or opaque liquid) Impression and Post Procedure Diagnosis: internal hemorrhoids Plan: High fiber diet leaflet Avoid straining at stool, epsom salts and sitz bath, anusol supps or cream Repeat Colonoscopy in 10 years or earlier if clinically indicated Above findings were reviewed with the patient and relevant handouts were provided if indicated.
[2023-11-15 10:41] VITALS: BP 104/58; PULSE 62; RESP 16; TEMP 36.5; O2SAT 99
[2023-11-15 10:56] VITALS: BP 123/74; PULSE 62; RESP 18; TEMP 36.4; O2SAT 100
== END 2023-11-15 11:36 | disposition home or self-care (01) ==
PROVIDERS: PCP Physician Assistant; Visit Provider Internal Medicine Gastroenterology
PROC: 0DJD8ZZ Inspection of Lower Intestinal Tract, Via Natural or Artificial Opening Endoscopic (ICD-10-PCS; CPT 45378; principal; 2023-11-15 11:20)
DX: Z12.11 Encounter for screening for malignant neoplasm of colon (principal); K64.0 First degree hemorrhoids; Z88.5 Allergy status to narcotic agent
CPT/HCPCS: 45378

== ENCOUNTER → 2023-11-15 08:45 | Outpatient (BNV) | payer OTHER, SELFPAY | PROVIDERS: PCP Physician Assistant; Visit Provider Internal Medicine Gastroenterology | DX: Z12.11 Encounter for screening for malignant neoplasm of colon (principal); K64.0 First degree hemorrhoids | CPT/HCPCS: 45378 ==

== ENCOUNTER 2023-11-29 08:51 | Outpatient (AMB) | payer OTHER, SELFPAY ==
[2023-11-29 08:54] VITALS: BP 112/60; PULSE 74; BMI 28.2
--- NOTE | 2023-11-29 08:54 | A.OFFVIS_ITS ---
Vital Signs 11/29/23 08:54 Height 5 ft 11 in Weight 202 lb BMI 28.2 BP 112/60 Blood Pressure Location Rt brachial Position Sitting Pulse 74 Intake Visit Reasons: s/p colon Intake Note: Yuriy presents to in office visit today s/p colonoscopy. CC: Patient reports doing well and denies having any GI concerns today. 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 She denies any bowel or upper GI problems. There are no prior problems with anesthesia or sedation. She denies any cardiac or respiratory problems. No ID problems. There is no known FHX or crc or polyps. Orders: Orders Colonoscopy - GI Use Only Today Z01.818 - Encounter for other preprocedural examination Medications: New sodium,potassium,mag sulfates 17.5-3.13-1.6 gram (Suprep Bowel Prep Kit) 480 mL orally; 354 mL 0RF Z01.818 - Encounter for other preprocedural examination : COLONOSCOPY 11/15/23 Findings: Terminal Ileum-normal Cecum:normal Right sided retroflexion: normal Ascending Colon: normal Transverse Colon -normal Descending Colon:normal Sigmoid Colon: normal Rectum: Retroflexion with small internal hemorrhoids seen, grade I Anorectum - normal Intervention: none Impression and Post Procedure Diagnosis: internal hemorrhoids Plan: High fiber diet leaflet Avoid straining at stool, epsom salts and sitz bath, anusol supps or cream Repeat Colonoscopy in 10 years or earlier if clinically indicated TODAY'S VISIT She has agreeable to a 10 year repeat. The procedure was well tolerated. The results were explained and the patient is agreeable to the follow-up interval as stated. The bowel pattern has returned to normal. Education was provided to tell any 1st degree relatives about their findings to be sure that they are screened by age 45. Educated that they will be put on a recall list when it is time for their repeat scope but should they move out of state or away from the hospital they will need to remember along with their primary to repeat the procedure in a timely fashion to avoid any adverse complications. [facility] Medical History Colon cancer screening Abnormal ultrasound of endometrium Sinusitis Dysuria Right flank pain Obese Screening for hypercholesterolemia Screening for hypothyroidism Screening for diabetes mellitus (DM) Left knee pain Breast cancer screening Sacroiliac dysfunction Right foot pain Bilateral knee pain Lumbar back pain SOB (shortness of breath) Low iron Anemia Surgical History S/P cervical disc replacement Hx of dilation and curettage History of surgical procedure H/O gastric bypass Hx of appendectomy H/O tubal ligation Family History Maternal Aunt Diabetes Liver cancer Father Diabetes Maternal Uncle Stomach cancer Social History Household Members: Spouse and Children Housing: House Are you a primary direct support professional caregiver to a significant other at home: No Do you presently have visiting nurse or other home services: No Alcohol intake: former Patient Tobacco Use Status: Former Tobacco user Tobacco use type: Cigarette Cigarette Packs Per Day: 0.5 e-Cigarette/Vaping Use: Never Used Second Hand Smoke Exposure: No service: No Current occupational status: employed Current occupation: [employer] Cognitive needs: No Hearing needs: No Vision needs: No Female Reproductive History Menstrual Age of Menarche: 13 Review of Systems Const Denies fatigue, Denies fever(s), Denies night sweats, Denies poor appetite and Denies weight loss ENT Reports Normal hearing present, Denies dental pain, Denies dysphagia, Denies hearing loss, Denies mouth pain, Denies odynophagia, Denies throat swelling, Denies tongue swelling and Reports other (Dentition adequate) Card Reports no additional complaints Resp Reports no additional complaints GI Details: Denies abdominal pain, Denies melena, Denies bloating, Denies hematochezia, Denies constipation, Denies GI cramping, Denies dysphagia, Denies excessive flatus, Denies early satiety, Denies heartburn, Denies diarrhea, Denies nausea, Denies odynophagia, Denies vomiting and Denies hematemesis Skin/Breast Denies pruritus, Denies lesions, Denies rash and Denies jaundice Neuro Reports Normal hearing present and Denies Abnormal speech present Endo Denies fatigue Aller/Immun Denies throat swelling and Denies tongue swelling Physical Exam Vital Signs: Last Vital Signs Pulse 74 11/29/23 08:54 BP 112/60 11/29/23 08:54 BMI result Body Mass Index 28.2 Const General: cooperative, no acute distress, well developed and well groomed Nutritional Appearance: average body habitus and well nourished Orientation/consciousness: oriented to person, oriented to place and oriented to time Limitations: No language barrier HEENT Head: Yes normocephalic and Yes atraumatic Eyes General: appearance normal, both eyes and all related structures Pupils: Equal, round and reactive pupils present Neck Neck: Yes normal visual inspection Resp Effort & Inspection: normal respiratory effort and able to speak in complete sentences GI Inspection: No distended and No Abdominal panniculus present Palpation (GI): Soft to palpation, nontender, no guarding, not rigid and No hepatosplenomegaly present Percussion: Yes normal to percussion Auscultation: normal bowel sounds Rectal Exam - Female: deferred Skin General skin exam: no rashes or lesions noted, turgor normal, skin not dry, no jaundice, No spider nevi and no striae Rashes: no rashes Nails: normal Neuro General: oriented to person, oriented to place and oriented to time Cranial nerves: Yes Equal, round and reactive pupils present and Yes Normal hearing present Speech: No Abnormal speech present Extrem General: Yes normal to inspection, No clubbing, No cyanosis and No edema Psych Appearance: grossly normal and well kempt Mental Status: mental status grossly normal Speech and movement: Normal speech and movement present Affect: normal affect Attitude: cooperative Thought process: Normal thought process present and not confabulating Thought content: Normal thought content present Insight: Good insight present (Psych) Judgement: Good judgement present (Psych) Assessment & Plan Assessment & Plan (1) H/O colonoscopy: Code(s): Z98.890 - Other specified postprocedural states Plan She has agreeable to a 10 year repeat. The procedure was well tolerated. The results were explained and the patient is agreeable to the follow-up interval as stated. The bowel pattern has returned to normal. Education was provided to tell any 1st degree relatives about their findings to be sure that they are screened by age 45. Educated that they will be put on a recall list when it is time for their repeat scope but should they move out of state or away from the hospital they will need to remember along with their primary to repeat the procedure in a timely fashion to avoid any adverse complications. Coding Level of Care Code Est Pt Level 3 (34381) Diagnoses H/O colonoscopy Z98.890
== END 2023-11-29 09:14 | disposition home or self-care (01) ==
PROVIDERS: PCP Physician Assistant; Visit Provider Nurse Practitioner
DX: Z98.890 Other specified postprocedural states (principal)
CPT/HCPCS: 99213

== ENCOUNTER → 2023-11-29 08:51 | Outpatient (BNVA) | payer OTHER, SELFPAY | PROVIDERS: PCP Physician Assistant; Visit Provider Nurse Practitioner | DX: Z98.890 Other specified postprocedural states (principal) | CPT/HCPCS: 99212 ==

== ENCOUNTER 2024-03-03 07:51 | Outpatient (AMB) | payer OTHER, SELFPAY ==
--- NOTE | 2024-03-03 07:52 | A.OFFVIS_ITS ---
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 No complaints. Last Pap/HPV was negative in 12/01 Last Mammogram was BI-RADS 1 in 08/04 Last Colonoscopy was done in 12/02, the recommendation was to repeat in 10 years [facility] Medical History Colon cancer screening Abnormal ultrasound of endometrium Sinusitis Dysuria Right flank pain Obese Screening for hypercholesterolemia Screening for hypothyroidism Screening for diabetes mellitus (DM) Left knee pain Breast cancer screening Sacroiliac dysfunction Right foot pain Bilateral knee pain Lumbar back pain SOB (shortness of breath) Low iron Anemia Surgical History S/P cervical disc replacement Hx of dilation and curettage History of surgical procedure H/O gastric bypass Hx of appendectomy H/O tubal ligation Family History Maternal Aunt Diabetes Liver cancer Father Diabetes Maternal Uncle Stomach cancer Social History Household Members: Spouse and Children Housing: House Are you a primary home health care coordinator to a significant other at home: No Do you presently have visiting nurse or other home services: No Alcohol intake: former Patient Tobacco Use Status: Former Tobacco user Tobacco use type: Cigarette Cigarette Packs Per Day: 0.5 e-Cigarette/Vaping Use: Never Used Second Hand Smoke Exposure: No service: No Current occupational status: employed 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- [employer] Cognitive needs: No Hearing needs: No Vision needs: No Female Reproductive History Menstrual Age of Menarche: 13 Date of last menstrual period: 02/26/24 control method: permanent sterilization Date of last pap smear: 12/07/22 Date of Mammogram: 08/07/23 Review of Systems Const All systems reviewed & are unremarkable except as noted in HPI and below Card Reports as per HPI Resp Reports as per HPI GI Reports as per HPI and Reports no additional complaints Reports as per HPI Physical Exam Const General: cooperative, healthy appearing and comfortable Chest Chest palpation & inspection: normal inspection of the chest and normal palpa tion of entire chest wall Breast/axilla inspection: normal inspection of the breasts and normal inspection of the axillae Breast/axilla palpation: normal palpation of the breasts, normal palpation of the axillae and no axillary lymphadenopathy Resp Effort & Inspection: normal respiratory effort Auscultation: clear to auscultation bilaterally Percussion: percussion normal Cardio Palpation: normal PMI Rate: regular rate Rhythm: regular rhythm Heart sounds: no murmurs and no rubs Peripheral pulses: Peripheral pulses 2+ throughout GI Inspection: Yes normal to inspection Palpation (GI): Soft to palpation, nontender, no guarding, not rigid and No hepatosplenomegaly present Percussion: Yes normal to percussion Auscultation: normal bowel sounds Rectal Exam - Female: deferred General: Yes bladder normal to palpation External Female Exam: No lesion Speculum Exam - Vagina: normal appearance of the vagina, normal palpation, normal vaginal discharge and not erythematous Speculum Exam - Cervix: normal appearance of the cervix and normal palpation Bimanual exam- vagina & uterus: normal bimanual exam, normal palpation, uterine size normal, bladder normal to palpation, consistency normal and normal palpation Bimanual Exam- Adnexa, other: normal adnexae, no masses and no tenderness Assessment & Plan Assessment & Plan (1) Well woman exam: Code(s): Z01.419 - Encounter for gynecological examination (general) (routine) without abnormal findings Category: Medical Plan: Cotesting not indicated this year. Instructions given the patient to schedule next screening Mammogram in 08/05. Counseled the patient about the recommended dietary allowance of 1000 mg of Calcium & 600 IU of vitamin D. The patient was instructed to perform monthly self-breast exams and to schedule an annual exam in a year; All questions answered and the patient verbalized understanding. Instructed the patient to schedule annual exam in a year Coding Level of Care Code Est Pt Prev Care 40-64y(23671) Diagnoses Well woman exam Z01.419
[2024-03-03 08:05] VITALS: BP 120/72; BMI 28.0
== END 2024-03-03 08:18 | disposition home or self-care (01) ==
LOC: HO.HWS 07:51
PROVIDERS: PCP Physician Assistant; Visit Provider Obstetrics & Gynecology
DX: Z01.419 Encounter for gynecological examination (general) (routine) without abnormal findings (principal)
CPT/HCPCS: 99396

== ENCOUNTER → 2024-03-03 07:51 | Outpatient (BNVA) | payer OTHER, SELFPAY | PROVIDERS: PCP Physician Assistant; Visit Provider Obstetrics & Gynecology | DX: Z01.419 Encounter for gynecological examination (general) (routine) without abnormal findings (principal) | CPT/HCPCS: 99396 ==

== ENCOUNTER 2024-05-15 08:48 | Outpatient (AMB) | payer OTHER, SELFPAY ==
--- NOTE | 2024-05-15 08:49 | A.OFFPC_ITS ---
Vital Signs 05/15/24 08:50 Height 5 ft 11 in Weight 204 lb 8 oz BMI 28.5 BP 118/68 Blood Pressure Location Lt brachial Position Sitting Pulse 70 Pulse Source Pulse Oximeter Pulse Oximetry (%) 96 Oxygen Delivery Method Room Air Intake Visit Reasons: PE- NEEDS PHQ9/THRIVE Optics Test Technician Required: No Accompanied by: Self / Same As Patient Allergies oxycodone [From Percocet] Allergy (Intermediate, Verified 05/15/24 09:00) ITCHING Medication List - Last Reconciled 05/15/24 by Kadeem Jones PA-C albuterol sulfate 90 mcg/actuation 2 inhalations inhalation Q4-6H PRN cyanocobalamin (vitamin B-12) 1,000 mcg PO DAILY ferrous sulfate 325 mg PO DAILY Tobacco use date assessed: 05/15/24 Dental Screening Dental Screen Date: 05/15/24 Did you have a dental visit in the last 12 months?: Yes Did you have a dental problem in the last 6 months where you did not have access to dental care?: No Was dental information given to patient?: Patient has dentist HPI PE- NEEDS PHQ9/THRIVE HPI Details Patient is a 48-year-old female here today for an annual physical .? Patient has a past history significant iron deficiency anemia, obesity, cervical disc disease, endometrial polyp. Concern--> has been having Allergic rhinitis for quite some time now. Has been using cetirizine and montelukast in conjunction which has significantly helped her allergy symptoms. .. Anemia: Followed by hematology , most recent CBCs showing a slightly low RBCs and hemoglobin.? She continues on B12 and iron supplementation. She reports she feels great .. 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 Mammogram: Done in July of 2023 BI-RADS 1 Vaccines: Up-to-date with COVID vaccine, tetanus vaccine, declines flu vaccine. Colon cancer screening: Colonoscopy done in 2023 normal repeat 10 years [facility] Medical History Endometrial polyp Colon cancer screening Abnormal ultrasound of endometrium Sinusitis Dysuria Right flank pain Obese Screening for hypercholesterolemia Screening for hypothyroidism Screening for diabetes mellitus (DM) Breast cancer screening Sacroiliac dysfunction Right foot pain Bilateral knee pain Lumbar back pain SOB (shortness of breath) Low iron Anemia Surgical History S/P cervical disc replacement Hx of dilation and curettage History of surgical procedure H/O gastric bypass Hx of appendectomy H/O tubal ligation Family History Maternal Aunt Diabetes Liver cancer Father Diabetes Maternal Uncle Stomach cancer Social History Household Members: Spouse and Children Housing: House Are you a primary care manager cna to a significant other at home: No Do you presently have visiting nurse or other home services: No Alcohol intake: former Patient Tobacco Use Status: Former Tobacco user Tobacco use type: Cigarette Cigarette Packs Per Day: 0.5 e-Cigarette/Vaping Use: Never Used Second Hand Smoke Exposure: No service: No Current occupational status: employed Current occupation: [employer] Cognitive needs: No Hearing needs: No Vision needs: No Female Reproductive History Menstrual Age of Menarche: 13 Questionnaire PHQ-9 Over the last 2 weeks, how often have you been bothered by any of the following problems? 1. Little interest or pleasure in doing things: not at all 2. Feeling down, depressed, or hopeless: not at all 3. Trouble falling or staying asleep, or sleeping too much: not at all 4. Feeling tired or having little energy: not at all 5. Poor appetite or overeating: not at all 6. Feeling bad about yourself - or that you are a failure or have let yourself or your family down: not at all 7. Trouble concentrating on things, such as reading the newspaper or watching television: not at all 8. Moving or speaking so slowly that other people could have noticed. Or the opposite - being so fidgety or restless that you have been moving around a lot more than usual: not at all 9. Thoughts that you would be better off or of hurting yourself in some way: not at all Total score: 0 Depression Screening Interpretation: Negative Depression Screening Done: Yes 54053 - PHQ-9 Billing: Yes Source: Developed by Drs. Chino Cottrell, Margie Weller, Elliot Bella and colleagues, with an educational chandler from [employer]. Thrive Questionnaire Date Thrive assessed: 05/15/24 I am a: Patient What is your living situation today?: I have a steady place to live Within the past 12 months, did the food you bought not last and you didn't have the money to get more?: Never true Within the past 12 months, did you worry whether your food would run out before you got money to buy more?: Never true Do you have trouble paying for medicines?: No Do you have trouble getting transportation to medical appointments?: No Do you have trouble paying your heating and electricity bill?: No Do you have trouble taking care of your child, family member or friend?: No Do you have trouble with day-to-day activities such as bathing, preparing meals, shopping, managing finances, etc.?: No Are you currently unemployed and looking for a job?: Yes Are you interested in more education?: No Please select the resources that you would like help with: None Currently or been in a relationship where the following occur: No concerns reported THRIVE Score: 0 AUDIT C Alcohol Use Questionnaire (AUDIT-C) 1. How often do you have a drink containing alcohol?: Never 3. How often do you have six or more drinks on one occasion?: Never Total Score: 0 MIRZA-7 AMB Questionnaire MIRZA-7 Date MIRZA - 7 assessed: 05/15/24 Feeling nervous, anxious, or on edge: 0 = Not at all Not being able to stop or control worryin = Not at all Worrying too much about different things: 0 = Not at all Trouble relaxin = Not at all Being so restless that it is hard to sit still: 0 = Not at all Becoming easily annoyed or irritable: 0 = Not at all Feeling afraid as if something awful might happen: 0 = Not at all Total MIRZA-7 score (0-4 normal; 5-9 mild; 10-14 moderate; 15-21 severe): 0 Source: Developed by Drs. Chino Cottrell, Elliot Ferreira and colleagues, with an educational chandler from [employer]. MIRZA-7 Assessment Billing MIRZA-7 Assessment Tool: MIRZA-7 Assessment 35608 Review of Systems Const Denies body aches, Denies chills, Denies excessive sweating, Denies fatigue, Denies fever(s) and Denies headache(s) Eyes Denies blurry vision ENT Denies dysphagia, Denies vertigo, Denies dizziness, Denies headache(s), Denies hearing loss and Denies tinnitus Card Denies chest pain, Denies chest pain with activity, Denies syncope, Denies irregular heart rhythm and Denies dyspnea Resp Denies chest congestion, Denies cough, Denies hemoptysis, Denies dyspnea and Denies wheezing GI Denies abdominal pain, Denies melena, Denies hematochezia, Denies coffee ground emesis, Denies dysphagia, Denies diarrhea, Denies nausea and Denies vomiting Denies urinary frequency, Denies dysuria, Denies urinary hesitancy and Denies urinary urgency Musc Denies arthralgias, Denies limited range of motion, Denies muscle cramps and Denies muscle weakness Skin/Breast Denies rash and Denies skin ulcer Neuro Denies Abnormal speech present, Denies confusion, Denies vertigo, Denies dizziness, Denies syncope, Denies headache(s), Denies memory loss and Denies seizure-like activity Psych Denies anxiety, Denies confusion, Denies depression, Denies memory loss, Denies panic attacks and Denies paranoia Endo Denies excessive sweating, Denies fatigue, Denies flushing, Denies polydipsia and Denies polyuria Aller/Immun Denies wheezing Physical exam (Primary Care) Vital Signs: Oxygen Delivery Method Room Air 05/15/24 08:50 Tobacco/Smoking Status: Tobacco use Status Tobacco use date assessed 05/15/24 05/15/24 08:53 Patient Tobacco Use Status Former Tobacco user 05/15/24 08:53 Tobacco use type Cigarette 05/15/24 08:53 e-Cigarette/Vaping Use Never Used 05/15/24 08:53 PHQ-9: PHQ-9 Score PHQ-9: Total score 0 05/15/24 08:53 Depression Screening Interpretation: Negative Thrive Assessment: Date of Thrive Assessment Date Thrive assessed 05/15/24 05/15/24 08:53 Currently or been in a relationship where the following occur: No concerns reported Const General: cooperative, comfortable, no acute distress, alert and awake; No confusion Orientation/consciousness: oriented to person, oriented to place, patient oriented x3 and No confusion HENOR Head: Yes normocephalic Ears: external ears normal and TM's normal bilaterally Face and sinus: No sinus tenderness Mouth: Normal oral and palatal mucosa present and tongue normal Teeth and gingiva: dentition normal and gingiva normal Throat: Yes posterior oropharynx normal, Yes tonsils normal and Yes uvula midline Eyes Conjunctivae: conjunctivae normal Sclerae: sclerae normal Pupils: Equal, round and reactive pupils present EOM: EOMs intact bilaterally Direct Ophthalmoscopy: No no photophobia Neck Neck: Yes no lymphadenopathy, No tender and Yes no JVD Thyroid: Thyroid normal Carotids: no bruits Chest Chest palpation & inspection: no tenderness Resp Effort & Inspection: normal respiratory effort, no audible wheezes, not labored and no stridor Auscultation: no crackles, no rales, no rhonchi and no wheezes Cardio Jugular venous distension: no JVD Rate: regular rate, not bradycardic and not tachycardic Rhythm: regular rhythm Bruits: no carotid bruits Peripheral pulses: Peripheral pulses 2+ throughout GI Inspection: Yes normal to inspection, No abdominal wall ecchymosis and No visible herniation Palpation (GI): Soft to palpation, nontender, no guarding, not rigid and No hepatosplenomegaly present Auscultation: normoactive bowel sounds General: Yes no CVA tenderness Back/Spine/Pelvis Back: no CVA tenderness and No back tenderness Cervical Spine: cervical ROM normal Thoracic/Lumbar Spine: thoracic and lumbar spine normal to inspection, straight leg raise negative bilaterally, No thoraco-lumbar ROM limited and No lumbar spinal tenderness Skin Lesions: no lesions Rashes: no rashes Wounds: no wounds Neuro General: oriented to person, oriented to place, patient oriented x3, CN's II-XI intact bilaterally and No confusion Cranial nerves: Yes Equal, round and reactive pupils present and Yes Normal accommodation reflex present Cognition (Neuro): normal cognition Speech: No Abnormal speech present Gait exam (Neuro): Normal gait present Motor exam (neuro): 5/5 motor strength present throughout Extrem Right upper extremity: full ROM; no cyanosis Left upper extremity: full ROM; no cyanosis Right lower extremity: no edema Left lower extremity: no edema Psych Appearance: grossly normal Mental Status: mental status grossly normal Affect: normal affect Attitude: cooperative Thought process: Normal thought process present Coding Level of Care Code Est Pt Prev Care 40-64y(36853) Diagnoses Annual physical exam Z00.00 Iron deficiency anemia, unspecified iron deficiency anemia type D50.9 Iron deficiency anemia type: unspecified iron deficiency Seasonal allergic rhinitis, unspecified trigger J30.2 Allergic rhinitis trigger: unspecified Allergic rhinitis seasonality: seasonal Screening for diabetes mellitus (DM) Z13.1 Additional Codes PHQ-9 - 15548 - PHQ-9 Billing: Yes ([id number]) MIRZA-7 Assessment Billing - MIRZA-7 Assessment Tool: MIRZA-7 Assessment 66605 ([id number]) Assessment & Plan Assessment & Plan (1) Annual physical exam: Code(s): Z00.00 - Encounter for general adult medical examination without abnormal findings Category: Medical Plan: As per HPI (2) Iron (Fe) deficiency anemia: Code(s): D50.9 - Iron deficiency anemia, unspecified Category: Medical Qualifiers: Iron deficiency anemia type: unspecified iron deficiency Qualified Code(s): D50.9 - Iron deficiency anemia, unspecified Plan: Patient continues with iron supplementation. She reports she feels well. Will check check iron studies and CBC to ensure stable.. (3) Allergic rhinitis: Code(s): J30.9 - Allergic rhinitis, unspecified Category: Medical Qualifiers: Allergic rhinitis trigger: unspecified Allergic rhinitis seasonality: seasonal Qualified Code(s): J30.2 - Other seasonal allergic rhinitis Plan: Patient reports her allergies have been bad for quite some time. She has been taking cetirizine and montelukast in combination and reports her allergies are much much better. She would like a script for montelukast. (4) Screening for diabetes mellitus (DM): Code(s): Z13.1 - Encounter for screening for diabetes mellitus Category: Medical Plan: As per HPI Orders: Orders IRON PROFILE Today D50.9 - Iron deficiency anemia, unspecified Complete Blood Count no Diff Today D50.9 - Iron deficiency anemia, unspecified Comprehensive [place]. Panel Fast Today Z13.1 - Encounter for screening for diabetes mellitus Medications: New montelukast 10 mg PO DAILY 90 days 90 tabs 2RF J30.2 - Other seasonal allergic rhinitis
[2024-05-15 08:50] VITALS: BP 118/68; PULSE 70; O2SAT 96; BMI 28.5
== END 2024-05-15 09:12 | disposition home or self-care (01) ==
PROVIDERS: PCP Physician Assistant; Visit Provider Physician Assistant
DX: Z00.00 Encounter for general adult medical examination without abnormal findings (principal); D50.9 Iron deficiency anemia, unspecified; J30.2 Other seasonal allergic rhinitis; Z13.1 Encounter for screening for diabetes mellitus

== ENCOUNTER → 2024-05-15 08:48 | Outpatient (BNVA) | payer OTHER, SELFPAY | PROVIDERS: PCP Physician Assistant; Visit Provider Physician Assistant | DX: Z00.00 Encounter for general adult medical examination without abnormal findings (principal); D50.9 Iron deficiency anemia, unspecified; J30.2 Other seasonal allergic rhinitis | CPT/HCPCS: 96127; 99396 ==

== ENCOUNTER 2024-08-12 09:44 | Outpatient (REF) | payer OTHER, SELFPAY ==
--- NOTE | ~2024-08-12 | MM_ITS ---
EXAMINATION: MM SCREENING DIGITAL BREAST TOMOSYNTHESIS, BILATERAL CLINICAL INFORMATION: Screening. Asymptomatic. COMPARISON: Mammography: Comparison is made with available priors TECHNIQUE: Digital breast mammography with tomosynthesis is performed in both the craniocaudal and mediolateral oblique views along with computer-aided detection (CAD). FINDINGS: The breasts are heterogeneously dense, which may obscure small masses (ACR BI-RADS breast composition Category c). There are no significant masses, abnormal calcifications, or other abnormalities. MM/MM tomosynthesis screening BI IMPRESSION: No mammographic evidence of malignancy. ASSESSMENT: BI-RADS BI-RADS 1 - Negative RECOMMENDATION: Routine annual mammography screening. 1 year F/U This examination should not preclude the clinical evaluation of a suspicious palpable abnormality. This patient's information was entered into a reminder system with a target due date for their next mammogram. Electronically signed by: Rosana Olivo DO 08/14/2024 11:39 AM [facility]
--- OUTSIDE RECORDS SUMMARY | 2024-08-12 11:13 | XMS_ITS | Data Portability ---
Author Organization [place] - [facility], Allergy Address [address] [address] Care Team Providers Care Chemical Dependency Therapist Name Role Phone MORGAN DO Primary Care Provider Assessment No assessment recorded. Plan of Treatment Reminders Order Date Submit Date Provider Last Modified By Organization Details Last Modified Time Details Appointments None recorded. Lab None recorded. Referral None recorded. Procedures None recorded. Surgeries None recorded. Imaging MRI, brain + internal auditory canal, w/wo contrast - MRI, BRAIN + INTERNAL AUDITORY CANAL, W/WO CONTRAST 2023 024 [facility] ([facility]), [address] [facility], [place], [address], 11:54:25 Medication Orders None recorded. Patient TargetsNo targets recorded. Patient InstructionsNo instructions recorded. Reason for Referral None Reported. Results Created Date Observation Date Name Description Value Unit Range Abnormal Flag Note LastModifiedBy Organization Detail LastModifiedTime 04/08/2004/08/2024 audio gram No observ ation record ed. [facility] [address] [place], [address], 04/08/2024 12:47:36 04/08/20 audio gram No observ ation record ed. BARCODE Not Available 2023 11:11:17 04/08/20 24 09/14/2023 audio gram No observ ation record ed. [email or web address] Not Available 03/12 11:39:51 04/21/2004/17/2024 MRI, brain + brain stem, w/wo contr ast [facility] te MRI- [facility] Access ion Number : [id number] Patien t Name: Yuriy Phipps Record Number : [id number] Date of : 1975 Date of Exam: 2023 Referr ing Physic barb: Dbste iner, Zef[facility] [address] [place] [address] Exam: MR Brain (C-/C+ ) CPT 20867 Room Descri ption: Post Siem Espr 1.5 HISTOR Y: Left-s ided hearin g loss. Asymme tric sensor ineura l left-s ided hearin g loss. TECHNI QUE: Multip lanar multis equenc e MRI of the brain (IAC) was obtain ed before and after the admini strati on of 19 cc of Dotare m. COMPAR RIRI: No prior studie s are availa ble for compar riri at [facility] . FINDIN GS: The brains tem and cerebe llum are normal in signal , and the cervic omedul valentin juncti on is unrema rkable . The cister nal and canali cular segmen ts of the 7th and 8th crania l nerve comple xes are unrema rkable on the high-r esolut ion axial T2-jewell ghted images . There is no mass or abnorm al enhanc ement within either cerebe llopon guillermo angle cister n or dietary internship al audito ry canal. Expect ed T2 bright cochle ar signal is mainta ined bilate rally, and there is no abnorm al cochle ar enhanc ement. The visual ized extrac ranial soft tissue s and orbita l struct ures are unrema rkable . Marrow signal is unrema rkable . IMPRES DANELLE: No retroc ochlea r lesion , . Electr onical ly Signed By: Arun caputo [facility] ([facility]) [address], [place], [address], 04/23/2024 15:19:58 Result Notes None recorded. Problems Name Problem SNOMED Code Status Onset Date Resolution Date Notes Provider Name and Address Organization Details Recorded Time Sensorine ural hearing loss of bilateral ears 862880416 Active 2017 Sensorine ural hearing loss, bilateral ; Note: Date Diagnosed : 11/01/2017 5:07 PM (H90.3) Not Available [facility] 4 02:18:45 Allergic rhinitis 60384854 Active 2018 Allergic rhinitis: Due to other allergen; Note: Date Diagnosed : 9 2:04 PM (477.8) Allergi c rhinitis: Due to other allergen; Note: Date Diagnosed : 03/13/2019 2:40 PM (477.8) ; Start Date : 9 Allergi c rhinitis: Due to other allergen; Note: Date Diagnosed : 01/30/2019 4:32 PM (477.8) ; Start Date : 9 Allergi c rhinitis: Due to other allergen; Note: Date Diagnosed : 01/23/2019 5:15 PM (477.8) ; Start Date : 9 Allergi c rhinitis: Due to other allergen; Note: Date Diagnosed : 01/16/2019 4:21 PM (477.8) ; Start Date : 9 Allergi c rhinitis: Due to other allergen; Note: Date Diagnosed : 12/26/2018 2:34 PM (477.8) ; Start Date : 9 Allergi c rhinitis: Due to other allergen; Note: Date Diagnosed : 12/11/2018 2:13 PM (477.8) ; Start Date : 9 Allergi c rhinitis: Due to other allergen; Note: Date Diagnosed : 10/24/2018 1:38 PM (477.8) ; Start Date : 9 Allergi c rhinitis: Due to other allergen; Note: Date Diagnosed : 10/17/2018 1:59 PM (477.8) ; Start Date : 9 Allergi c rhinitis: Due to other allergen; Note: Date Diagnosed : 10/10/2018 4:11 PM (477.8) ; Start Date : 9 Allergi c rhinitis: Due to other allergen; Note: Date Diagnosed : 09/26/2018 2:48 PM (477.8) ; Start Date : 9 Allergi c rhinitis: Due to other allergen; Note: Date Diagnosed : 09/18/2018 2:39 PM (477.8) ; Start Date : 9 Allergi c rhinitis: Due to other allergen; Note: Date Diagnosed : 08/29/2018 3:04 PM (477.8) ; Start Date : 9 Allergi c rhinitis: Due to other allergen; Note: Date Diagnosed : 08/15/2018 3:09 PM (477.8) ; Start Date : 9 Allergi c rhinitis: Due to other allergen; Note: Date Diagnosed : 08/08/2018 4:28 PM (477.8) ; Start Date : 9 Allergi c rhinitis: Due to other allergen; Note: Date Diagnosed : 08/01/2018 3:09 PM (477.8) ; Start Date : 9 Allergi c rhinitis: Due to other allergen; Note: Date Diagnosed : 07/04/2018 1:52 PM (477.8) ; Start Date : 9 Allergi c rhinitis: Due to other allergen; Note: Date Diagnosed : 06/13/2018 4:49 PM (477.8) ; Start Date : 9 Allergi c rhinitis: Due to other allergen; Note: Date Diagnosed : 05/16/2018 3:49 PM (477.8) ; Start Date : 8 Allergi c rhinitis: Due to other allergen; Note: Date Diagnosed : 8 3:37 PM (477.8) ; Start Date : 8 Allergi c rhinitis: Due to other allergen; Note: Date Diagnosed : 8 1:49 PM (477.8) ; Start Date : 8 Allergi c rhinitis: Due to other allergen; Note: Date Diagnosed : 8 2:10 PM (477.8) ; Start Date : 8 Allergi c rhinitis: Due to other allergen; Note: Date Diagnosed : 03/07/2018 3:03 PM (477.8) ; Start Date : 8 Allergi c rhinitis: Due to other allergen; Note: Date Diagnosed : 08/30/2017 4:39 PM (477.8) ; Start Date : 8 Other allergic rhinitis; Note: Date Diagnosed : 08/14/2016 3:51 PM (J30.89) ; Start Date : 7 Not Available [facility] 4 02:18:50 Nasal congestio n 95834077 Active 2016 Nasal congestio n; Note: Date Diagnosed : 08/14/2016 3:51 PM (R09.81) Not Available [facility] 4 02:18:13 Sensorine ural hearing loss in left ear [id number] 109 Active 2023 JUANJO ABARCA, [address],[place] [address], [place], [address] , [facility] 4 10:47:37 Problem Notes None recorded. Procedures Surgical History Date Name Laterality Status Provider Name and Address Organization Details Recorded Time 04/08/2024 Comp Audio with Tymps (01879 & 19197) completed JUANJO ABARCA, [facility] [address] [facility],[place] [address], [place], [address], [facility] 04/08/2024 10:47:04 Imaging Results Imaging Date Name Status LastModified by Organiz ation Details LastModified Time 04/08/2024 audiogram [facility] [address] [place] [address], [place], [address], 04/08/2024 12:47:36 04/08/2024 audiogram completed BARCODE Information no t available 04/08/2024 11:11:17 09/14/2023 audiogram completed [email or web address] Information n ot available 04/08/2024 11:39:51 04/17/2024 MRI, brain + brain stem, w/wo contrast [facility] [address] [facility], [place], [address], 04/23/2024 15:19:58 Procedure Notes None recorded. Medical Equipment None Reported. 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 active Not Available Not Available No t Available doxycycli ne hyclate 100 mg capsule TAKE 1 CAPSULE BY MOUTH TWICE A DAY FOR 10 DAYS active Not Available Not Available No t Available Claritin 10 mg tablet Take 1 tablet by mouth once a day 04/03 completed Medicati on ID: [id number] D uration Value: 30 Reason: () Brand Name: Claritin Send Method: E-Prescr ibed Sub s Allowed: subs OK Medic ationGen ericName : Claritin Not Available Not Available Not Available cyanocoba natanael (vit B-12) 1,000 mcg tablet TAKE 1 TABLET BY MOUTH EVERY DAY active Not Available Not Available No t Available omeprazol e 40 mg capsule,d elayed release 04/03 completed Medicati on ID: [id number] D uration Value: 30 Reason: () Brand Name: omeprazo le Send Method: E-Prescr ibed Sub s Allowed: subs OK Speci al Instruct ion: TK 1 C PO QD Medic ationGen ericName : omeprazo le Not Available Not Available Not Available lorazepam 0.5 mg tablet TAKE ONE TABLET NIGHT BEFORE APPOINTM ENT . THEN ONE TABLET ONE HOUR PRIOR TO SURGICAL VISIT . active Not Available Not Available No t Available benzonata te 100 mg capsule TAKE 1 CAPSULE BY MOUTH TWICE A DAY NEEDED FOR COUGH active Not Available Not Available No t Available ferrous sulfate 325 mg (65 mg iron) tablet TAKE 1 TABLET BY MOUTH EVERY DAY active Not Available Not Available No t Available prednison e 50 mg tablet TAKE 1 TABLET BY MOUTH EVERY DAY FOR 5 DAYS active Not Available Not Available No t Available omeprazol e 20 mg capsule,d elayed release 08/22 completed Medicati on ID: [id number] D uration Value: 30 Reason: () Brand Name: omeprazo le Send Method: E-Prescr ibed Sub s Allowed: subs OK Speci al Instruct ion: TK ONE C PO QD Medic ationGen ericName : omeprazo le Not Available Not Available Not Available epinephri ne 0.3 mg/0.3 mL injection , auto-inje ctor 1 pen injector intramus cularly 2018 active Medicati on ID: [id number] D uration Value: 1 Prescri bed By Name: Gerard Trevino MD Brand Name: epinephr ine Send Method: E-Prescr ibed Sub s Allowed: subs OK Medic ationGen ericName : epinephr ine Not Available Not Available Not Available ibuprofen 600 mg tablet TAKE 1 TAB ONE HOUR 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 active Not Available Not Available No t Available fluticaso ne propionat e 50 mcg/actua tion nasal spray,tono pension 2016 active Medicati on ID: [id number] D uration Value: 30 Prescri bed By Name: Gerard Trevino MD Brand Name: fluticas one Send Method: E-Prescr ibed Sub s Allowed: subs OK Speci al Instruct ion: 2 sprays each nostril once a day Medi cationGe nericNam e: fluticas one Not Available Not Available Not Available naproxen 500 mg tablet 2018 active Medicati on ID: [id number] D uration Value: 30 Brand Name: naproxen Send Method: E-Prescr ibed Sub s Allowed: subs OK Speci al Instruct ion: TK 1 T PO Q 12 H WITH FOOD OR MILK PRN Medi cationGe nericNam e: naproxen Not Available Not Available Not Available Ventolin HFA 90 mcg/actua tion aerosol inhaler INHALE 2 PUFFS BY MOUTH EVERY 4 TO 6 HOURS NEEDED FOR SHORTNES S OF BREATH OR WHEEZE active Not Available Not Available No t Available iron 18 mg tablet 04/25 completed Medicati on ID: [id number] R kelsey: () Brand Name: iron Sen d Method: E-Prescr ibed Sub s Allowed: subs OK Medic ationGen ericName : iron Not Available Not Available Not Available chlorhexi dine gluconate 0.12 % mouthwash RINSE MOUTH WITH 15ML (1 CAPFUL) FOR 30 SECONDS IN MORNING AND EVENING AFTER BRUSHING , THEN SPIT active Not Available Not Available No t Available Xyzal 5 mg tablet 04/25 completed Medicati on ID: [id number] R kelsey: () Brand Name: Xyjetl Se nd Method: E-Prescr ibed Sub s Allowed: subs OK Medic ationGen ericName : Xyzal Not Available Not Available Not Available Suprep Bowel Prep Kit 17.5 gram-3.13 gram-1.6 gram oral solution DRINK DIRECTED active Not Available Not Available No t Available cyanocoba natanael (vitamin B-12) 1,000 mcg capsule TAKE 1 CAPSULE ORALLY DAILY active Not Available Not Available No t Available Vitals Date Recorded Body height Body mass index (BMI) Body weight Provider Name and Address Organization Details Last Updated DateTime 04/08/2024 180.34 cm 28.3 kg/m2 33874.25 g Marianne Ayala [place] - [facility] 04/08/2024 10:57:12 Social History None recorded. Functional Status None recorded. Mental Status None recorded. Family History Nothing Reported. Medical History No medical history recorded. Gynecological HistoryNo gynecological history recorded. Obstetrics History GPAL:G 0 P 0 0 0 0 Past Encounters Encounter ID Performer Location Encounter Start Date Encounter Closed Date Diagnosis/Indication Diagnosis SNOMED-CT Code Diagnosis ICD10 Code Diagnosis Note [id number] ZEFERINO LOU MD [facility] [address] [address] 04/08/2024 09:56:07 04/08/2024 11:10:55 Sensorineural hearing loss in left ear [id number] 9109 H90.42 Audiologic al evaluation results: 04/08/2024 Right ear:{{Norm al* Normal through 2 kHz Mild M oderate Mo derately-s evere Devorah re Profoun d}} {{hearing* sloping to a mild slopi ng to a moderate s loping to moderately severe slo ping to severe slo ping to profound f lat high frequency low frequency mid frequency cookie bite freeman curve}} {{with* se nsorineura l hearing loss with condu ctive hearing loss with mixed hearing loss with}} {{excellen t* good fa ir poor no measurable }} word recognitio n.Left ear:{{Norm al Normal through 2 kHz Mild* Moderate M oderately- severe Sev ere Profou nd}} {{hearing sloping to a mild slopi ng to a moderate s loping to moderately severe slo ping to severe slo ping to profound f lat high frequency low frequency* mid frequency cookie bite freeman curve}} {{with sen sorineural hearing loss with* cond uctive hearing loss with mixed hearing loss with}} {{excellen t* good fa ir poor no measurable }} word recognitio n. Tympanomet ry:Right Ear:{{Type A* Type As Type Ad Type C Type C, shallow & rounded Ty pe B Type B with large volume Cou ld not maintain a hermetic seal}}Left Ear:{{Type A Type As Type Ad* Type C Type C, shallow & rounded Ty pe B Type B with large volume Cou ld not maintain a hermetic seal}} Patient's audiogram is demonstrat ing an asymmetric sensorineu ral hearing loss affecting the {{right ear greater than left left ear greater than right*}}. This is enough of an asymmetry to warrant retrocochl ear workup. Recommend MRI scan of the brain and internal auditory canals with gadolinium . We will arrange this for the patient. If the scan is negative I will let the patient know via {{telephon e message po rtal massage*}} . If there are any significan t abnormalit ies, we can arrange telehealth visit to discuss the results. Health Concerns Section Related Observation LastModified by Organization Detai ls LastModified Time None Recorded Concern Status LastModified by Organization Details LastModified Time None Recorded Advance Directives Directive None Recorded Payers Encounter Date Sequence Insurance Name Policy Number Policy Campa Covered Member ID Campa Member ID Guarantor Name 04/08/2024 1 [facility] (MEDICAID HMO) RA Phipps [id number] Yuriy Phipps Notes Date Note Type Note Provider Name and Address Organization Details Recorded Time 04/08/2024 text/html 6 yeasr ago afte r a flight she had left ear pain. She has had trouble with her left ear since. She feels her hearing is worse on the left. She had an audio at [place] 10/02 which showed asymmetric hearing loss worse in the low tones . Our audio today shows borderline normal hearing AD and mild low frequency SNHL with worse hearing across all tones on the left even though most are in archana borderline normal range. Denies tinnitus. No recent ear infections. ZEFERINO LOU MD [address] [place] [address], [place], [address], [place] - [facility] 04/08/2024 11:11:01 OBGyn Episode No OBEpisode recorded.
== END 2024-08-12 09:45 | disposition home or self-care (01) ==
LOC: HO.MAMMO 09:44
PROVIDERS: PCP Physician Assistant; Visit Provider Physician Assistant
DX: Z12.31 Encounter for screening mammogram for malignant neoplasm of breast (principal)
CPT/HCPCS: 77063; 77067

== ENCOUNTER → 2024-08-12 10:00 | Outpatient (BNV) | payer OTHER, SELFPAY | PROVIDERS: PCP Physician Assistant; Visit Provider Internal Medicine | DX: Z12.31 Encounter for screening mammogram for malignant neoplasm of breast (principal) | CPT/HCPCS: 77063; 77067 ==

== ENCOUNTER 2024-12-23 14:34 | Outpatient (AMB) | payer OTHER, SELFPAY ==
--- NOTE | 2024-12-23 14:54 | MHC.PC.OV ---
Vital Signs 12/23/24 14:55 Height 5 ft 11 in Weight 208 lb 2 oz BMI 29.0 BP 118/64 Blood Pressure Location Lt brachial Position Sitting Pulse 77 Pulse Source Pulse Oximeter Pulse Oximetry (%) 98 Intake Visit Reasons: Hand pain Contact Center Team Lead Required: No Accompanied by: Self / Same As Patient Allergies oxycodone (From Percocet) Allergy (Intermediate, Verified 12/23/24 15:21) ITCHING Medication List - Last Reconciled 12/23/24 by Latisha Galindo PA-C albuterol sulfate 90 mcg/actuation 2 inhalations inhalation Q4-6H PRN cyanocobalamin (vitamin B-12) 1,000 mcg PO DAILY ferrous sulfate 325 mg PO DAILY montelukast 10 mg PO DAILY 90 days venlafaxine ER (Effexor XR) 37.5 mg PO DAILY 30 days Tobacco use date assessed: 12/23/24 Dental Screening Dental Screen Date: 12/23/24 HPI Hand pain HPI Details 48 year old female coming to the office for acute problem. Presenting with weakness and numbness in the left hand, suspected to be carpal tunnel syndrome. Symptoms began three weeks ago, initially thought to be related to motorcycle riding. The patient experiences significant weakness, difficulty gripping, and occasional numbness in the left hand. No tingling or burning pain is present, and no recent injuries or falls were noted. The patient reports a shoulder strain from a wrong movement, causing pain with certain movements. No systemic symptoms such as chest pain or vision changes were reported. [facility], [facility] Medical History Endometrial polyp Colon cancer screening Abnormal ultrasound of endometrium Sinusitis Dysuria Right flank pain Obese Screening for hypercholesterolemia Screening for hypothyroidism Screening for diabetes mellitus (DM) Breast cancer screening Sacroiliac dysfunction Right foot pain Bilateral knee pain Lumbar back pain SOB (shortness of breath) Low iron Anemia Surgical History S/P cervical disc replacement Hx of dilation and curettage History of surgical procedure H/O gastric bypass Hx of appendectomy H/O tubal ligation Family History Maternal Aunt Diabetes Liver cancer Father Diabetes Maternal Uncle Stomach cancer Social History Household Members: Spouse and Children Housing: House Are you a primary personal caregiver to a significant other at home: No Do you presently have visiting nurse or other home services: No Alcohol intake: former Patient Tobacco Use Status: Former Tobacco user Tobacco use type: Cigarette Cigarette Packs Per Day: 0.5 e-Cigarette/Vaping Use: Never Used Second Hand Smoke Exposure: No service: No Current occupational status: employed Current occupation: [employer] Cognitive needs: No Hearing needs: No Vision needs: No Female Reproductive History Menstrual Age of Menarche: 13 Questionnaire PHQ-9 Over the last 2 weeks, how often have you been bothered by any of the following problems? 1. Little interest or pleasure in doing things: not at all 2. Feeling down, depressed, or hopeless: not at all 3. Trouble falling or staying asleep, or sleeping too much: not at all 4. Feeling tired or having little energy: not at all 5. Poor appetite or overeating: not at all 6. Feeling bad about yourself - or that you are a failure or have let yourself or your family down: not at all 7. Trouble concentrating on things, such as reading the newspaper or watching television: not at all 8. Moving or speaking so slowly that other people could have noticed. Or the opposite - being so fidgety or restless that you have been moving around a lot more than usual: not at all 9. Thoughts that you would be better off or of hurting yourself in some way: not at all Total score: 0 60407 - PHQ-9 Billing: Yes Source: Developed by Drs. Chino Cottrell, Margie Weller, Elliot Bella and colleagues, with an educational chandler from [employer]. Thrive Questionnaire Date Thrive assessed: 12/23/24 I am a: Patient What is your living situation today?: I have a steady place to live Within the past 12 months, did the food you bought not last and you didn't have the money to get more?: Never true Within the past 12 months, did you worry whether your food would run out before you got money to buy more?: Never true Do you have trouble paying for medicines?: No Do you have trouble getting transportation to medical appointments?: No Do you have trouble paying your heating and electricity bill?: No Do you have trouble taking care of your child, family member or friend?: No Do you have trouble with day-to-day activities such as bathing, preparing meals, shopping, managing finances, etc.?: No Are you currently unemployed and looking for a job?: No Are you interested in more education?: No Please select the resources that you would like help with: None Currently or been in a relationship where the following occur: No concerns reported THRIVE Score: 0 AUDIT C Alcohol Use Questionnaire (AUDIT-C) 1. How often do you have a drink containing alcohol?: Never Total Score: 0 MIRZA-7 AMB Questionnaire MIRZA-7 Date MIRZA - 7 assessed: 12/23/24 Feeling nervous, anxious, or on edge: 2 = More than half the days Not being able to stop or control worryin = Several days Worrying too much about different things: 2 = More than half the days Trouble relaxin = More than half the days Being so restless that it is hard to sit still: 1 = Several days Becoming easily annoyed or irritable: 2 = More than half the days Feeling afraid as if something awful might happen: 0 = Not at all Total MIRZA-7 score (0-4 normal; 5-9 mild; 10-14 moderate; 15-21 severe): 10 Source: Developed by Drs. Chino Cottrell, Margie Weller, Elliot Bella and colleagues, with an educational chandler from [employer]. MIRZA-7 Assessment Billing MIRZA-7 Assessment Tool: MIRZA-7 Assessment 50501 Review of Systems Const Denies body aches, Denies chills, Denies fever(s), Denies headache(s) and Denies poor appetite Eyes Reports no additional complaints ENT Denies dizziness and Denies headache(s) Card Denies chest pain, Denies lightheadedness and Denies dyspnea Resp Denies cough and Denies dyspnea Reports no additional complaints Musc Reports as per HPI and Denies abnormal gait Skin/Breast Reports system reviewed and no additional complaints, except as documented Neuro Denies abnormal gait, Denies dizziness and Denies headache(s) Psych Reports no additional complaints Physical exam (Primary Care) Vital Signs: Last Vital Signs Pulse 77 12/23/24 14:55 BP 118/64 12/23/24 14:55 Pulse Ox 98 12/23/24 14:55 BMI result Body Mass Index 29.0 Tobacco/Smoking Status: Tobacco use Status Tobacco use date assessed 12/23/24 12/23/24 14:59 Patient Tobacco Use Status Former Tobacco user 12/23/24 14:59 Tobacco use type Cigarette 12/23/24 14:59 e-Cigarette/Vaping Use Never Used 12/23/24 14:59 PHQ-9: PHQ-9 Score PHQ-9: Total score 0 12/23/24 15:19 Thrive Assessment: Date of Thrive Assessment Date Thrive assessed 12/23/24 12/23/24 14:59 Currently or been in a relationship where the following occur: No concerns reported Const General: cooperative, healthy appearing, comfortable and no acute distress Orientation/consciousness: patient oriented x3 HENMT Head: Yes normocephalic Ears: hearing grossly normal bilaterally General nose exam: Normal external nose present Eyes General: appearance normal, both eyes and all related structures Conjunctivae: conjunctivae normal Neck Neck: Yes full ROM and Yes no lymphadenopathy Resp Effort & Inspection: normal respiratory effort Auscultation: clear to auscultation bilaterally, no crackles, no rales, no rhonchi and no wheezes Cardio Rate: regular rate Rhythm: regular rhythm Skin General skin exam: no rashes or lesions noted Neuro General: patient oriented x3 Gait exam (Neuro): Normal gait present Extrem Other: intact strength, sensation and pulses in james UE. Mild weakness in the left hand. pain to palpation of left shoulder and pain with lateral raise. General: Yes normal to inspection, Yes full ROM and No edema Psych Affect: normal affect Attitude: cooperative Insight: Good insight present (Psych) Judgement: Good judgement present (Psych) Coding Level of Care Code Est Pt Level 3 (72288) Diagnoses Left hand weakness R29.898 Numbness of left hand R20.0 Right shoulder pain M25.511 Additional Codes MIRZA-7 Assessment Billing - MIRZA-7 Assessment Tool: MIRZA-7 Assessment 71327 ([id number]) PHQ-9 - 20333 - PHQ-9 Billing: Yes ([id number]) Assessment & Plan Assessment & Plan (1) Left hand weakness: Code(s): R29.898 - Other symptoms and signs involving the musculoskeletal system Category: Medical Plan: The plan includes ordering a nerve conduction study to assess for carpal tunnel syndrome, which will help determine the severity and guide further management. The patient is advised to use a wrist splint at night to reduce inflammation and prevent further nerve compression. Occupational therapy is recommended to improve hand strength and function, with a focus on exercises tailored for carpal tunnel syndrome. (2) Numbness of left hand: Code(s): R20.0 - Anesthesia of skin Category: Medical Plan: see above (3) Right shoulder pain: Code(s): M25.511 - Pain in right shoulder Category: Medical Plan: For the shoulder strain, the patient is advised to use heating pads and liwv-fid-sbkydkt analgesics such as Tylenol or ibuprofen for pain relief. Plan This note was constructed using voice recognition software. While every effort has been made to ensure accuracy and hair colorist, still areas may have been included sometimes these areas may affect the content or meeting of the given symptoms. Total time spent caring for the patient today was 20 minutes. This includes time spent before the visit reviewing the chart, time spent during the visit, and time spent after the visit and documentation. Patient was informed and verbally consented to the use of an ambient scribe for clinic note documentation during this visit. Orders: Orders NE nerve conduction velocity Today R20.0 - Anesthesia of skin, R29.898 - Other symptoms and signs involving the musculoskeletal system NE electromyogram (EMG) Today R20.0 - Anesthesia of skin, R29.898 - Other symptoms and signs involving the musculoskeletal system
[2024-12-23 14:55] VITALS: BP 118/64; PULSE 77; O2SAT 98; BMI 29.0
--- OUTSIDE RECORDS SUMMARY | 2024-12-23 15:55 | XMS_ITS | Data Portability ---
Author Organization [place] - [facility], Allergy Address [address] [address] Care Team Providers Care Air Quality Consultant Name Role Phone HI MORGAN Primary Care Provider Assessment No assessment recorded. Plan of Treatment Reminders Order Date Submit Date Provider Last Modified By Organization Details Last Modified Time Details Appointments None recorded. Lab None recorded. Referral None recorded. Procedures None recorded. Surgeries None recorded. Imaging MRI, brain + internal auditory canal, w/wo contrast - MRI, BRAIN + INTERNAL AUDITORY CANAL, W/WO CONTRAST 2023 024 [facility] ([facility]), [address] [facility], [place], [address], 11:54:25 Medication Orders None recorded. Patient TargetsNo targets recorded. Patient InstructionsNo instructions recorded. Reason for Referral None Reported. Results Created Date Observation Date Name Description Value Unit Range Abnormal Flag Note LastModifiedBy Organization Detail LastModifiedTime 04/08/2004/08/2024 audio gram No observ ation record ed. [facility] [address], [place], [address], 04/08/2024 12:47:36 04/08/20 audio gram No observ ation record ed. BARCODE Not Available 2023 11:11:17 04/08/20 24 09/14/2023 audio gram No observ ation record ed. Not Available 03/12 11:39:51 04/21/2004/17/2024 MRI, brain + brain stem, w/wo contr ast [facility] MRI- [facility] Access ion Number : [id number] Patien t Name: Yuriy Phipps Record Number : [id number] Date of : 1975 Date of Exam: 2023 Referr ing Physic barb: Dbste iner, Zeferino [facility] [address] [place] [address] Exam: MR Brain (C-/C+ ) CPT 56961 Room Descri ption: [place] [facility] Espr 1.5 HISTOR Y: Left-s ided hearin g loss. Asymme tric sensor ineura l left-s ided hearin g loss. TECHNI QUE: Multip lanar multis equenc e MRI of the brain (IAC) was obtain ed before and after the admini strati on of 19 cc of Dotare m. COMPAR RIRI: No prior studie s are availa ble for compar riri at [facility] . [...] cerebe llopon guillermo angle cister n or internal combustion engineer al audito ry canal. Expect ed T2 [...] Electr onical ly Signed By: Arun caputo [facility] ([facility]) [address], [place], [address], 04/23/2024 15:19:58 Result Notes Documentation Provider Name and Address Organization Details Recorded Time Mri, Brain + Brain Stem, W/wo Contrast : [facility] Accession Number: [id number] Patient Name: Yuriy Phipps Date of : 1975 Date of Exam: 04-17-2024 Referring Physician: Zeferino Lou [facility] [address] [place] [address] Exam: MR Brain (C-/C+) CPT 91596 Room Description: [facility] Espr 1.5 HISTORY: Left-sided hearing loss. Asymmetric sensorineural left-sided hearing loss. TECHNIQUE: Multiplanar multisequence MRI of the brain (IAC) was obtained before and after the administration of 19 cc of Dotarem. COMPARISON: No prior studies are available for comparison at [facility]. FINDINGS: The brainstem and cerebellum are normal in signal, and the cervicomedullary junction is unremarkable. The cisternal and canalicular segments of the 7th and 8th cranial nerve complexes are unremarkable on the high-resolution axial T2-weighted images. There is no mass or abnormal enhancement within either cerebellopontine angle cistern or internal auditory canal. Expected T2 bright cochlear signal is maintained bilaterally, and there is no abnormal cochlear enhancement. The visualized extracranial soft tissues and orbital structures are unremarkable. Marrow signal is unremarkable. IMPRESSION: No retrocochlear lesion, . Electronically Signed By: Arun ortiz [place] - [facility] 04/23/2024 15:19:58 Problems Name Problem SNOMED Code Status Onset Date Resolution Date Notes Provider Name and Address Organization Details Recorded Time Sensorine ural hearing loss of bilateral ears 883831452 Active 2017 Sensorine ural hearing loss, bilateral ; Note: Date Diagnosed : 11/01/2017 5:07 PM (H90.3) Not Available [facility] 4 02:18:45 Allergic rhinitis 34174601 Active 2018 Allergic rhinitis: Due to other [...] ; Start Date : 7 Not Available [facility] 4 02:18:50 Nasal congestio n 46233266 Active 2016 Nasal congestio n; Note: Date Diagnosed : 08/14/2016 3:51 PM (R09.81) Not Available [facility] 4 02:18:13 Sensorine ural hearing loss in left ear 91976058613 109 Active 2023 JUANJO ABARCA, [address], [place], [address] , [facility] 4 10:47:37 Problem Notes None recorded. Procedures Surgical History Date Name Laterality Status Provider Name and Address Organization Details Recorded Time 04/08/2024 Comp Audio with Tymps - 35464 & 90850 completed JUANJO ABARCA, AUD [address] [facility],[place] [address], [place], [address], [facility] 04/08/2024 10:47:04 Imaging Results None recorded. Procedure Notes None recorded. Medical Equipment None Reported. Allergies Allergen ID Allergen Name Allergen Category Reaction Reaction Severity Criticality Documentation Date Start Date Code Code System Note Provider Name and Address Organization Details Recorded Time 48352 acetamino phen / oxycodone medicatio n other Not available Not available 10/23/2023 20321 3 RxNorm React ion: unkno wn, unspe cifie d;; Not Available [facility] 4 00:53:22 Medications Name Sig Start Date [...] a day 04/03 completed Medicati on ID: [id number] D uration Value: 30 Reason: () Brand Name: Claritin Send Method: E-Prescr ibed Sub s Allowed: subs OK Medic ationGen ericName : Claritin Not Available Not Available Not Available cyanocoba natanael (vit B-12) 1,000 mcg tablet TAKE 1 TABLET BY MOUTH EVERY DAY active Not Available Not Available No t Available omeprazol e 40 mg capsule,d elayed release 04/03 completed Medicati on ID: [id number] D uration Value: 30 Reason: () Brand [...] elayed release 08/22 completed Medicati on ID: [id number] D uration Value: 30 Reason: () Brand Name: omeprazo le Send Method: E-Prescr ibed Sub s Allowed: subs OK Speci al Instruct ion: TK ONE C PO QD Medic ationGen ericName : omeprazo le Not Available Not Available Not Available epinephri ne 0.3 mg/0.3 mL injection , auto-inje ctor 1 pen injector intramus cularly 2018 active Medicati on ID: [id number] D uration Value: 1 Prescri bed By Name: Gerard Trevino MD Brand Name: cristianer tia Send Method: E-Prescr ibed Sub s Allowed: [...] spray,tono pension 2016 active Medicati on ID: [id number] D uration Value: 30 Prescri bed By Name: Gerard Trevino MD Brand Name: fluticas one Send Method: E-Prescr ibed Sub s Allowed: subs OK Speci al Instruct ion: 2 sprays each nostril once a day Medi cationGe nericNam e: fluticas one Not Available Not Available Not Available naproxen 500 mg tablet 2018 active Medicati on ID: [id number] D uration Value: 30 Brand Name: naproxen [...] mg tablet 04/25 completed Medicati on ID: [id number] R kelsey: () Brand Name: iron Sen [...] mg tablet 04/25 completed Medicati on ID: [id number] Ghazala cole: () Brand Name: Xyzal Se nd Method: E-Prescr ibed Sub s [...] Updated DateTime 04/08/2024 180.34 cm 28.3 kg/m2 44296.25 g Marianne Ayala [place] - [facility] 04/08/2024 10:57:12 Social History None recorded. Functional Status None recorded. Mental Status None recorded. Family History Nothing Reported. Medical History No medical history recorded. Gynecological HistoryNo gynecological history recorded. Obstetrics History GPAL:G 0 P 0 0 0 0 Past Encounters Encounter ID Performer Location Encounter Start Date Encounter Closed Date Diagnosis/Indication Diagnosis SNOMED-CT Code Diagnosis ICD10 Code Diagnosis Note [id number] ZEFERINO LOU MD [facility] [address] [place] [address] 04/08/2024 09:56:07 04/08/2024 11:10:55 Sensorineural hearing loss in left ear [id number] 9109 H90.42 Audiologic al evaluation results: 04/08/2024 Right ear:Normal hearing with excellent word recognitio n.Left ear:Mild low frequency sensorineu ral hearing loss with excellent word recognitio n. Tympanomet ry:Right Ear:Type ALeft Ear:Type Ad Patient's audiogram is demonstrat ing an asymmetric sensorineu ral hearing loss affecting the left ear greater than right. This is enough of an asymmetry to warrant retrocochl ear workup. Recommend MRI scan of the brain and internal auditory canals with gadolinium . We will arrange this for the patient. If the scan is negative I will let the patient know via portal massage. If there are any significan t abnormalit ies, we can arrange telehealth visit to discuss the results. Health Concerns Section Related Observation LastModified by Organization Detai ls LastModified Time None Recorded Concern Status LastModified by Organization Details LastModified Time None Recorded Advance Directives Directive None Recorded Payers Insurance Date Sequence Insurance Name Policy Number Policy Campa Covered Member ID Campa Member ID Guarantor Name 04/08/2024 1 [facility] - HEALTH NET PLAN (MEDICAID HMO) MILL[place] Yuriy Phipps [id number] Yuriy Phipps Notes Date Note Type Note Provider Name and Address Organization Details Recorded Time 04/08/2024 text/html 6 yeasr ago afte r a flight she had left ear pain. She has had trouble with her left ear since. She feels her hearing is worse on the left. She had an audio at [address] 10[address]02 which showed asymmetric hearing loss worse in the low tones . Our audio today shows borderline normal hearing AD and mild low frequency SNHL with worse hearing across all tones on the left even though most are in archana borderline normal range. Denies tinnitus. No recent ear infections. ZEFERINO LOU MD [address] [facility] [address], [place], [address], [facility] - [facility] 04/08/2024 11:11:01 OBGyn Episode No OBEpisode recorded.
== END 2024-12-23 15:35 | disposition home or self-care (01) ==
LOC: HO.HMCH 14:35
PROVIDERS: PCP Physician Assistant
DX: R29.898 Other symptoms and signs involving the musculoskeletal system (principal); R20.0 Anesthesia of skin; M25.511 Pain in right shoulder

== ENCOUNTER → 2024-12-23 14:34 | Outpatient (BNVA) | payer OTHER, SELFPAY | PROVIDERS: PCP Physician Assistant | DX: R29.898 Other symptoms and signs involving the musculoskeletal system (principal); R20.0 Anesthesia of skin; M25.511 Pain in right shoulder | CPT/HCPCS: 96127; 99212 ==

== ENCOUNTER 2025-01-21 09:09 | Outpatient (REF) | payer OTHER, SELFPAY ==
[2025-01-21 13:24] LABS: MANUAL DIFF FLAG NO
[2025-01-21 13:44] LABS: Hematocrit 37.0 % (37.0-47.0); Hemoglobin 12.6 g/dl (12.0-16.0); Imm Gran Abs Auto 0.01 X10*3/uL (0.00-0.03); Imm Gran Pct Auto 0.3 % (0.0-0.4); Lymphocytes Absolute Auto 1.0 X10*3/uL (1.2-4.9); Mean Corpuscular HGB Conc 34.1 g/dl (31.0-35.0); Mean Corpuscular Hemoglobin 31.6 pg (27.0-33.0); Mean Corpuscular Volume 92.7 fL (80.0-98.0); NRBC Abs Auto 0.000 X10*3/uL (0.0-0.012); NRBC Pct Auto 0.0 /100WBC (0.0-0.2); Platelet Count 176 X10*3/uL (160-400); Red Blood Count 3.99 X10*6/uL (4.20-5.50); White Blood Count 3.5 X10*3/uL (4.8-10.8)
[2025-01-21 14:16] LABS: Alanine Aminotransferase 27 U/L (0-31); Albumin Level 4.0 g/dL (3.5-5.0); Alkaline Phosphatase 84 U/L (39-117); Anion Gap 10 (12-20); Aspartate Amino Transferase 30 U/L (5-31); Blood Urea Nitrogen 13 mg/dL (9-16); Calcium 8.4 mg/dL (8.4-10.2); Carbon Dioxide 25 mmol/L (22-29); Chloride 111 mmol/L (96-108); Estimated Glomerular Filt Rate > 60; Potassium 3.4 mmol/L (3.3-5.1); Sodium 143 mmol/L (135-145); Total Protein 6.7 g/dL (6.5-8.0)
== END 2025-01-21 09:10 | disposition home or self-care (01) ==
LOC: HO.HMGCLDS 09:09
PROVIDERS: PCP Physician Assistant; Visit Provider Physician Assistant Medical
DX: R35.0 Frequency of micturition (principal); R63.1 Polydipsia; N39.0 Urinary tract infection, site not specified; Z13.89 Encounter for screening for other disorder
CPT/HCPCS: 36415; 80053; 81003; 82948; 83036; 84443; 85025; 87086; 99212

== ENCOUNTER 2025-01-21 09:09 | Outpatient (AMB) | payer OTHER, SELFPAY ==
[2025-01-21 09:12] VITALS: BP 112/72; PULSE 73; TEMP 36.7; O2SAT 97; BMI 29.0
--- NOTE | 2025-01-21 09:12 | MHC.OFFWIV ---
Intake Vital Signs 01/21/25 09:12 Height 5 ft 11 in Weight 208 lb BMI 29.0 BP 112/72 Blood Pressure Location Lt brachial Position Sitting Pulse 73 Pulse Source Pulse Oximeter Temp 98.0 F Temp Source Oral Pulse Oximetry (%) 97 Oxygen Delivery Method Room Air Intake Visit Reasons: EP-dizziness, thirstiness, frequently urinary Patient Tobacco Use Status: Former Tobacco user [employer] Required: No Is last menstrual period known: Yes Last menstrual period: 01/27/25 Post menopausal: No Patient : No Allergies oxycodone (From Percocet) Allergy (Intermediate, Verified 01/21/25 09:26) ITCHING Do you need a note to return to daycare/school/sports/work: No HPI HPI Comments History of Present Illness Details History of Present Illness - The patient is a 49-year-old female presenting with symptoms of polyuria, polydipsia, and polyphagia. - She reports dizziness, excessive thirst, and frequent urination at night, which disrupts her sleep. - Persistent hunger and headaches are noted, with headaches sometimes not relieved by [id number] medications. - There is no pain or burning during urination, and she denies any weight changes recently. - Family history includes diabetes in her mother, father, and ten uncles, but she has never been tested for diabetes. - She underwent gastric bypass surgery approximately 20 years ago and reports a recent change in hunger levels, feeling hungry all the time. - She denies CP, SOB, abd pain, n//v/d, hematuria, dysuria, back pain, fever, chills, cold symptoms, visual changes - Has no history of diabetes. - Currently on her menses and has no changes to her periods. Physical Exam General: Cooperative, healthy appearing, comfortable, no acute distress and well developed Orientation: Patient oriented x3 Limitations: No limitations Head: Normal to inspection Ears: Hearing grossly normal bilaterally Nose: Normal external nose present Face and sinus: Normal facial exam Eyes: Appearance normal, both eyes and all related structures. EOMI. PERRLA. No nystagmus noted. Neck: Normal visual inspection and Yes full ROM. No thyromegaly noted. Respiratory: Normal respiratory effort and able to speak in complete sentences. Clear to auscultation bilaterally Cardiovascular: Regular rate and rhythm. Normal S1 and S2. No m/r/g. GI: Normal to inspection. Soft to palpation and nontender. No guarding or rebound tenderness noted. Skin: No rashes or lesions noted Neuro: Patient oriented x3. CN 2-12 intact. Extremities: Normal to inspection Patient was informed and verbally consented to the use of an ambient scribe for clinic note documentation during this visit. [facility] Medical History Endometrial polyp Colon cancer screening Abnormal ultrasound of endometrium Sinusitis Dysuria Right flank pain Obese Screening for hypercholesterolemia Screening for hypothyroidism Screening for diabetes mellitus (DM) Breast cancer screening Sacroiliac dysfunction Right foot pain Bilateral knee pain Lumbar back pain SOB (shortness of breath) Low iron Anemia Surgical History S/P cervical disc replacement Hx of dilation and curettage History of surgical procedure H/O gastric bypass Hx of appendectomy H/O tubal ligation Family History Maternal Aunt Diabetes Liver cancer Father Diabetes Maternal Uncle Stomach cancer Social History Household Members: Spouse and Children Housing: House Are you a primary personal care aide to a significant other at home: No Do you presently have visiting nurse or other home services: No Alcohol intake: former Patient Tobacco Use Status: Former Tobacco user Tobacco use type: Cigarette Cigarette Packs Per Day: 0.5 e-Cigarette/Vaping Use: Never Used Second Hand Smoke Exposure: No Patient : No service: No Current occupational status: employed 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- [employer] Cognitive needs: No Hearing needs: No Vision needs: No Female Reproductive History Menstrual Age of Menarche: 13 Date of last menstrual period: 01/27/25 Review of Systems Const All systems reviewed & are unremarkable except as noted in HPI and below Physical Exam Vital Signs: Last Vital Signs Temp 98.0 F 01/21/25 09:12 Pulse 73 01/21/25 09:12 BP 112/72 01/21/25 09:12 Pulse Ox 97 01/21/25 09:12 Oxygen Delivery Method Room Air 01/21/25 09:12 BMI result Body Mass Index 29.0 Results AMB Hemoglobin A1c AMB Hemoglobin A1c 5.3 % Last Edit by Pat Moody MA on 01/21/25 10:12 AMB Random Glucose (hemocue) AMB Random Glucose (hemocue) 109 mg/dL Last Edit by Pat Moody MA on 01/21/25 10:12 Assessment & Plan Assessment & Plan (1) Urinary frequency: Code(s): R35.0 - Frequency of micturition (2) Polydipsia: Code(s): R63.1 - Polydipsia Plan Most likely pre-diabetes vs perimenopause vs thyroid disorder vs electrolyte imbalance glucose in the office was 109 HA1c was 5.3 UA in the office Plan - Blood glucose levels and A1c will be checked to evaluate for diabetes, given the symptoms of polyuria, polydipsia, and polyphagia. - will order labs today - Further evaluation for her symptoms was recommended - Needs a f/u with her PCP in 1-2 weeks Orders: Orders Comprehensive Met. Panel Today R35.0 - Frequency of micturition, R63.1 - Polydipsia Complete Blood Count Auto Diff Today R35.0 - Frequency of micturition, R63.1 - Polydipsia TSH reflex Free T4 Today R35.0 - Frequency of micturition, R63.1 - Polydipsia Urine Culture Today N39.0 - Urinary tract infection, site not specified, R35.0 - Frequency of micturition, R63.1 - Polydipsia AMB Hemoglobin A1c Today Z13.9 - Encounter for screening, unspecified AMB Random Glucose (hemocue) Today Z13.9 - Encounter for screening, unspecified Coding Level of Care Code Est Pt Level 4 (13345) Diagnoses Urinary frequency R35.0 Polydipsia R63.1
== END 2025-01-21 10:06 | disposition home or self-care (01) ==
PROVIDERS: PCP Physician Assistant; Visit Provider Physician Assistant Medical
DX: R35.0 Frequency of micturition (principal); R63.1 Polydipsia; Z13.9 Encounter for screening, unspecified

== ENCOUNTER → 2025-02-10 08:12 | Outpatient (BNV) | payer OTHER, SELFPAY | PROVIDERS: PCP Physician Assistant; Visit Provider Psychiatry & Neurology Neurology | DX: G56.02 Carpal tunnel syndrome, left upper limb (principal); G56.22 Lesion of ulnar nerve, left upper limb | CPT/HCPCS: 95886; 95909 ==

== ENCOUNTER 2025-02-10 08:13 | Outpatient (REF) | payer OTHER, SELFPAY ==
--- NOTE | 2025-02-10 08:12 | EMG_ITS ---
Chief complaint: Left hand numbness Referred by: JAMEY Cho Procedure done: NCV and EMG of left upper extremity Findings: Left median and ulnar motor and sensory studies were performed left radial sensory study was performed in left median and lateral antecubital brachial sensory studies were performed. EMG needle examination was performed. Impression: 1. Mild left median neuropathy across carpal tunnel 2. Mild left ulnar neuropathy across cubital tunnel MTDD
== END 2025-02-10 08:14 | disposition home or self-care (01) ==
LOC: HO.NEURO 08:13
PROVIDERS: PCP Physician Assistant
DX: R29.898 Other symptoms and signs involving the musculoskeletal system (principal); R20.0 Anesthesia of skin
CPT/HCPCS: 95886; 95910

== ENCOUNTER 2025-02-17 12:51 | Emergency (ER) | payer OTHER, SELFPAY ==
--- NOTE | ~2025-02-17 | US_ITS ---
EXAMINATION: US RETROPERITONEAL LIMITED (LEFT KIDNEY) CLINICAL INFORMATION: Left flank pain.. COMPARISON: October 30, 2022. TECHNIQUE: Real-time ultrasound left kidney using grayscale technique. FINDINGS: LEFT KIDNEY: 13 x 6 x 6 cm (SAG x AP x TRV). Normal echotexture. Normal renal cortical thickness. No hydronephrosis. No gross solid or cystic lesion US/US renal LT IMPRESSION: No hydronephrosis or gross nephrolithiasis, left kidney. Negative exam.. Electronically signed by: Marcin Lake MD 02/17/2025 02:01 PM EDT
[2025-02-17 13:07] VITALS: BP 135/65; PULSE 78; RESP 18; TEMP 36.7; O2SAT 100; BMI 29.1
[2025-02-17 13:23] LABS: MANUAL DIFF FLAG NO
[2025-02-17 13:26] LABS: Hematocrit 41.0 % (37.0-47.0); Hemoglobin 13.6 g/dl (12.0-16.0); Imm Gran Abs Auto 0.02 X10*3/uL (0.00-0.03); Imm Gran Pct Auto 0.4 % (0.0-0.4); Lymphocytes Absolute Auto 1.4 X10*3/uL (1.2-4.9); Mean Corpuscular HGB Conc 33.2 g/dl (31.0-35.0); Mean Corpuscular Hemoglobin 31.2 pg (27.0-33.0); Mean Corpuscular Volume 94.0 fL (80.0-98.0); NRBC Abs Auto 0.000 X10*3/uL (0.0-0.012); NRBC Pct Auto 0.0 /100WBC (0.0-0.2); Platelet Count 184 X10*3/uL (160-400); Red Blood Count 4.36 X10*6/uL (4.20-5.50); White Blood Count 5.2 X10*3/uL (4.8-10.8)
[2025-02-17 13:30] LABS: Appearance Urine Clear; Glucose Urine UA Negative (Negative); PH 7.0 (5.0-9.0); Specific Gravity - Urine 1.020 (1.005-1.025); UMIC TRIGGER UACC YES
--- NOTE | 2025-02-17 13:36 | ED_ITS ---
HPI - Abdominal Pain General Chief Complaint: Abdominal Pain Stated Complaint: back pain Time Seen by Provider: 02/17/25 19:27 Source: patient Limitations: no limitations History of Present Illness ED Provider: Radha Armendariz PA-C HPI narrative: 49-year-old female with a history of known uterine myoma, iron deficiency anemia who presents with left flank pain since earlier today. Pain over mid flank is focal, nonradiating. Pain worse with movement. Denies back pain, abdominal pain, nausea, vomiting, dysuria, hematuria or fever. No history kidney stones. No diarrhea. No fever. Denies radiation of pain into the left lower extremity, paresthesia, weakness of lower extremities, urinary retention or bowel incontinence. Patient can not recall any new activity where she could have strained her side. Related Data Previous Rx's ?Medication ?Instructions ?Recorded ferrous sulfate 325 mg (65 mg 325 mg PO DAILY #90 tabs 08/14/24 iron) tablet cyanocobalamin (vitamin B-12) 1,000 mcg PO DAILY #90 t abs 11/24/24 1,000 mcg tablet venlafaxine 37.5 mg 37.5 mg PO DAILY 30 days #30 caps 01/01/25 capsule,extended release 24 hr (Effexor XR) montelukast 10 mg tablet 10 mg PO DAILY 90 days #90 t abs 02/15/25 ketorolac 10 mg tablet 10 mg PO Q6H PRN pain #20 ta bs 02/17/25 methocarbamol 750 mg tablet 1,500 mg (2 x 750 mg) PO Q 8H PRN 02/17/25 pain, moderate #24 tabs Allergies Allergy/AdvReac Type Severity Reaction Status Date / Time oxycodone (From Percocet) Allergy Intermediate ITCHING Verified 02/17/25 13:08 Review of Systems Review of Systems Yes all other systems are reviewed and are negative Constitutional: Denies fatigue and Denies fever(s) Cardiovascular: Denies chest pain and Denies dyspnea Respiratory: Denies dyspnea Gastrointestinal: Reports abdominal pain, Denies constipation, Denies diarrhea, Denies nausea and Denies vomiting Genitourinary: Denies abnormal vaginal bleeding, Denies hematuria, Denies dysuria, Denies pelvic pain and Reports flank pain Musculoskeletal: Denies back pain, Denies muscle weakness, Denies numbness, Denies radiating pain into limb, Denies stiffness and Denies tingling Denies numbness and Denies tingling Endocrine: Denies fatigue PMFSH Past Medical History Attestation statement: The following information was validated with the patient. Medical History Endometrial polyp Colon cancer screening Abnormal ultrasound of endometrium Sinusitis Dysuria Right flank pain Obese Screening for hypercholesterolemia Screening for hypothyroidism Screening for diabetes mellitus (DM) Breast cancer screening Sacroiliac dysfunction Right foot pain Bilateral knee pain Lumbar back pain SOB (shortness of breath) Low iron Anemia Surgical History S/P cervical disc replacement Hx of dilation and curettage History of surgical procedure H/O gastric bypass Hx of appendectomy H/O tubal ligation Family History Family History Maternal Aunt Diabetes Liver cancer Father Diabetes Maternal Uncle Stomach cancer Social History Social History Household Members: Spouse and Children Housing: House Are you a primary child care group leader to a significant other at home: No Do you presently have visiting nurse or other home services: No Alcohol intake: former Patient Tobacco Use Status: Former Tobacco user Tobacco use type: Cigarette Cigarette Packs Per Day: 0.5 Smoked in Last 30 Days: No e-Cigarette/Vaping Use: Never Used Second Hand Smoke Exposure: No Use of substances other than those prescribed or required for medical reasons: No Advance Directives: No Advance Directives Information Provided: No service: No Current occupational status: employed Current occupation: [employer] Cognitive needs: No Hearing needs: No Vision needs: No Physical Exam ED Vital Signs: Vital Signs - 24 hr 02/17/25 13:07 02/17/25 19:47 Temperature 98.0 F 97.5 F Pulse Rate 78 66 Respiratory Rate 18 16 Blood Pressure 135/65 108/65 Pulse Oximetry 100 100 Oxygen Delivery Method Room Air Room Air BMI result Body Mass Index 29.1 Const Other: Alert well-appearing Orientation/consciousness: patient oriented x3 Chest Other: Focal pain over left lateral rib border, no deformity, Resp Effort & Inspection: normal respiratory effort Cardio Other: Normal peripheral perfusion GI Other: Abdomen is soft, nontender nondistended no guarding General: Yes no CVA tenderness Back/Spine/Pelvis Back: no CVA tenderness Skin Other: Warm dry no rash Neuro General: patient oriented x3, gait normal, no focal motor deficits and CN's II- XI intact bilaterally Psych Other: Cooperative Course Course Course Narrative: This is an RME: Additional HPI, ROS, PE not included below will be deferred to primary provider. RME assessment and note performed by: Candice Marshall PA-C This is a [id number] who presents emergency department with concerns of left flank pain. Patient states that this started last night, no urinary symptoms. No history of kidney stones. Patient with left-sided CVA tenderness. Plan: Labs, UA, further ER evaluation needed. Medical Decision Making Medical Decision Making [facility] Narrative: 49-year-old female with a history of known uterine myoma, iron deficiency anemia who presents with left flank pain since earlier today. Pain over mid flank is focal, nonradiating. Pain worse with movement. Denies back pain, abdominal pain, nausea, vomiting, dysuria, hematuria or fever. No history kidney stones. No diarrhea. No fever. Denies radiation of pain into the left lower extremity, paresthesia, weakness of lower extremities, urinary retention or bowel incontinence. Patient can not recall any new activity where she could have strained her side. No relevant chronic issues History: Per patient I have considered the following differential diagnoses: Musculoskeletal strain, lumbar strain, cauda equina, lumbar radiculopathy, renal colic, pyelonephritis, urinary tract infection, diverticulitis Plan: Patient is here with focal left mid flank pain over lateral lower rib border, pain worse with movement and palpation, is most consistent with musculoskeletal strain. We will treat accordingly. Thought about renal colic versus pyelonephritis , given distribution, however she has never had kidney stone she has no related symptoms, no CVA tenderness. Screening labs and urinalysis obtained in addition to a renal ultrasound which is completely normal. The patient is passing hematuria, but she also has a menstrual cycle at this time. She is not having any low back pain, no radiation of symptoms, no red flag signs symptoms concerning for cord compression. I have independently reviewed the following tests: Labs: No leukocytosis, not anemic, no electrolyte abnormality, urine not infected passing hematuria Renal ultrasound:LEFT KIDNEY: 13 x 6 x 6 cm (SAG x AP x TRV). Normal echotexture. Normal renal cortical thickness. No hydronephrosis. No gross solid or cystic lesion US/US renal LT IMPRESSION: No hydronephrosis or gross nephrolithiasis, left kidney. Negative exam.. Differential Diagnosis Differential Diagnoses: The differential diagnosis associated with the presentation includes See medical decision-making Admission/Observation Consideration of admission/observation: Escalation of care including admission/observation considered Not applicable Lab Data MDM Lab Attestation statement: I reviewed the patient's lab results. 02/17/25 13:18 02/17/25 13:18 Labs: Lab Results 02/17/25 Range/Units 13:18 WBC 5.2 (4.8-10.8) X10*3/uL RBC 4.36 (4.20-5.50) X10*6/uL Hgb 13.6 (12.0-16.0) g/dl Hct 41.0 (37.0-47.0) % MCV 94.0 (80.0-98.0) fL MCH 31.2 (27.0-33.0) pg MCHC 33.2 (31.0-35.0) g/dl RDW 11.5 (11.0-16.0) % Plt Count 184 (160-400) X10*3/uL MPV 11.1 (9.4-12.3) fL Immature Gran % (Auto) 0.4 (0.0-0.4) % Neut % (Auto) 64.1 (45-73) % Lymph % (Auto) 26.3 (20-40) % [place] % (Auto) 8.2 (2-11) % Eos % (Auto) 0.6 (0-4) % Baso % (Auto) 0.4 (0-2) % Lymph # (Auto) 1.4 (1.2-4.9) X10*3/uL [place] # (Auto) 0.4 (0.1-1.2) X10*3/uL Eos # (Auto) 0.0 (0.0-0.4) X10*3/uL Baso # (Auto) 0.0 (0.0-0.2) X10*3/uL Abs Immat Gran (auto) 0.02 (0.00-0.03) X10*3/uL Absolute Neuts (auto) 3.4 (2.0-8.3) x10*3/uL Absolute Nucleated RBC 0.000 (0.0-0.012) X10*3/uL Nucleated RBC % (auto) 0.0 (0.0-0.2) /100WBC Sodium 142 (135-145) mmol/L Potassium 3.8 (3.3-5.1) mmol/L Chloride 107 (96-108) mmol/L Carbon Dioxide 28 (22-29) mmol/L Anion Gap 11 L (12-20) BUN 11 (9-16) mg/dL Creatinine 0.52 (0.5-1.4) mg/dL Estim Creat Clear Calc 165.9 Estimated GFR > 60 Random Glucose 86 (60-115) mg/dL Calcium 8.9 (8.4-10.2) mg/dL Magnesium 1.8 (1.6-2.6) mg/dL Total Bilirubin 1.1 H (0.0-1.0) mg/dL Direct Bilirubin 0.3 (0.0-0.5) mg/dL AST 26 (5-31) U/L ALT 28 (0-31) U/L Alkaline Phosphatase 100 (39-117) U/L Total Protein 7.3 (6.5-8.0) g/dL Albumin 4.4 (3.5-5.0) g/dL Lipase 30 (8-78) U/L Urine Color Yellow Urine Appearance Clear Urine pH 7.0 (5.0-9.0) Ur Specific [place] 1.020 (1.005-1.025) Urine Protein Negative (Neg-Trace) mg/dL Urine Glucose (UA) Negative (Negative) mg/dL Urine Ketones Negative (Negative) mg/dL Urine Blood Moderate (2+) H (Negative) Urine Nitrite Negative (Negative) Ur Leukocyte Esterase Negative (Negative) Urine RBC >20 H (0-2) /HPF Urine WBC 0-5 (0-5) /HPF Ur Squamous Epith Cells 0-2 (0-2) /HPF Urine Bacteria None Seen (None Seen) Hyaline Casts 0-2 (0-2) /LPF Radiology Impression Discussion of test interpretation with radiology: I have reviewed the radiologist's reading. Discharge Plan Discharge Clinical Impression: Acute thoracic myofascial strain Patient Disposition: Home, Self-Care Instructions: Muscle Strain (ED) Additional Instructions: All of your screening labs were normal including a urinalysis. The ultrasound of the left upper abdomen is negative as well. You are being treated for musculoskeletal strain. See home care instructions. Use the ketorolac as directed this is an anti-inflammatory take it with food. Use the methocarbamol as needed for further pain, this is a muscle relaxant, it could cause drowsiness, do not drive or operate machinery while taking the medication. Follow up with your primary care provider as needed. Prescriptions: New methocarbamol 750 mg tablet 1,500 mg PO Q8H PRN (Reason: pain, moderate) Qty: 24 0RF ketorolac 10 mg tablet 10 mg PO Q6H PRN (Reason: pain) Qty: 20 0RF Rx Instructions: maximum total duration of 5 days from all oral, intranasal, or parenteral formulations. The patient had an intramuscular dose of Toradol here in the emergency room No Action ferrous sulfate 325 mg (65 mg iron) Tablet 325 mg PO DAILY Qty: 90 4RF venlafaxine [Effexor XR] 37.5 mg capsule,extended release 24hr 37.5 mg PO DAILY 30 Days Qty: 30 3RF montelukast 10 mg tablet 10 mg PO DAILY 90 Days Qty: 90 2RF cyanocobalamin (vitamin B-12) 1,000 mcg Tablet 1,000 mcg PO DAILY Qty: 90 4RF Stand Alone Forms: Work/School Release Print Language: German
[2025-02-17 13:42] LABS: Alanine Aminotransferase 28 U/L (0-31); Albumin Level 4.4 g/dL (3.5-5.0); Alkaline Phosphatase 100 U/L (39-117); Anion Gap 11 (12-20); Aspartate Amino Transferase 26 U/L (5-31); Blood Urea Nitrogen 11 mg/dL (9-16); Calcium 8.9 mg/dL (8.4-10.2); Carbon Dioxide 28 mmol/L (22-29); Chloride 107 mmol/L (96-108); Creatinine Clr Calc Pharmacy 165.9; Estimated Glomerular Filt Rate > 60; Lipase 30 U/L (8-78); Magnesium 1.8 mg/dL (1.6-2.6); Potassium 3.8 mmol/L (3.3-5.1); Sodium 142 mmol/L (135-145); Total Protein 7.3 g/dL (6.5-8.0)
[2025-02-17 19:47] VITALS: BP 108/65; PULSE 66; RESP 16; TEMP 36.4; O2SAT 100
[2025-02-17 20:13] VITALS: BP 108/65; PULSE 66; RESP 16; TEMP 36.4; O2SAT 100
== END 2025-02-17 20:14 | disposition home or self-care (01) ==
PROVIDERS: Physician Assistant Medical; Emergency Provider Emergency Medicine Emergency Medical Services; PCP Physician Assistant
DX: S29.012A Strain of muscle and tendon of back wall of thorax, initial encounter (principal); X58.XXXA Exposure to other specified factors, initial encounter; Y93.9 Activity, unspecified; Y92.9 Unspecified place or not applicable; Y99.8 Other external cause status; Z87.891 Personal history of nicotine dependence
CPT/HCPCS: 36415; 76775; 80048; 80076; 81001; 83690; 83735; 85025; 96372; 99284; J1885

== ENCOUNTER → 2025-02-17 13:11 | Outpatient (BNV) | payer OTHER, SELFPAY | PROVIDERS: PCP Physician Assistant; Visit Provider Radiology Diagnostic Radiology | DX: R10.9 Unspecified abdominal pain (principal) | CPT/HCPCS: 76775 ==

== ENCOUNTER 2025-03-30 11:42 | Emergency (ER) | payer OTHER, SELFPAY ==
--- NOTE | ~2025-03-30 | CT_ITS ---
CLINICAL HISTORY: lower back pain CT abdomen and pelvis with contrast Comparison: US/SR - US PELVIS TRANSABDOMINAL AND TRANSVAGINAL - 11/30/22 11:08 EDT Findings: No consolidation or effusion. Small gallstones are identified within the gallbladder lumen. No CT evidence for acute cholecystitis. The liver is borderline enlarged. The liver appears normal in contour. The solid organs are otherwise within normal limits. No hydronephrosis or hydroureter. No bowel obstruction, pneumoperitoneum, or pneumatosis. There are postsurgical changes of the bowel compatible with gastric bypass. Tiny, fat containing umbilical hernia. There is mild prominence of the adnexal veins with dilation of the left gonadal vein up to 8.5 mm in diameter. 2.2 cm low-attenuation left adnexal cyst. The bladder is minimally distended with fluid, limiting its evaluation. Tiny, fat containing left inguinal hernia present. Surgically absent appendix. No acute fracture visualized. Vacuum disc phenomenon present at L5-S1. IMPRESSION: No acute inflammatory process identified within the abdomen or pelvis. Mild prominence of the bilateral adnexal veins with dilation of the left gonadal vein up to 8.5 mm in diameter. These findings may be seen with pelvic venous congestion syndrome in the appropriate clinical setting. Clinical correlation is advised. 2.2 cm low-attenuation left adnexal cyst incidentally noted. Cholelithiasis. No CT evidence for acute cholecystitis. This document has been electronically signed by: Tico Rivas MD on 03/30/2025 21:30:52
[2025-03-30 12:49] VITALS: BP 134/62; PULSE 78; RESP 16; TEMP 36.4; O2SAT 98; BMI 28.8
--- NOTE | 2025-03-30 12:52 | ED.GENADULT ---
HPI - General Adult General Chief complaint: Urogenital-Female Stated complaint: sharp pain from waist down Time Seen by Provider: 03/30/25 17:31 History of Present Illness HPI narrative: Patient is a 49-year-old male presents today with having lower back pain for the last 2 days. Positive frequency. No vaginal discharge. Patient from home. Does not think she is . No coughing or congestion or upper respiratory symptoms. No nausea no vomiting no diarrhea. The pain is worse with movement. No diaphoresis no chest pain or shortness of breath. No radiation of the pain. No incontinence. Related Data Previous Rx's ?Medication ?Instructions ?Recorded ferrous sulfate 325 mg (65 mg 325 mg PO DAILY #90 tabs 08/14/24 iron) tablet cyanocobalamin (vitamin B-12) 1,000 mcg PO DAILY #90 tabs 11/24/24 1,000 mcg tablet venlafaxine 37.5 mg 37.5 mg PO DAILY 30 days #30 caps 01/01/25 capsule,extended release 24 hr (Effexor XR) montelukast 10 mg tablet 10 mg PO DAILY 90 days #90 tabs 02/15/25 ketorolac 10 mg tablet 10 mg PO Q6H PRN pain #20 tabs 02/17/25 methocarbamol 750 mg tablet 1,500 mg (2 x 750 mg) PO Q8H PRN 02/17/25 pain, moderate #24 tabs cyclobenzaprine 10 mg tablet 10 mg PO TID PRN pain #14 tabs 03/30/25 ibuprofen 400 mg tablet 400 mg PO Q6H PRN pain #20 tabs 03/30/25 Allergies Allergy/AdvReac Type Severity Reaction Status Date / Time oxycodone (From Percocet) Allergy Intermediate ITCHING Verified 03/30/25 12:50 Review of Systems Review of Systems: Positive lower back pain Yes all other systems are reviewed and are negative PMFSH Past Medical History Attestation statement: The following information was validated with the patient. Medical History Endometrial polyp Colon cancer screening Abnormal ultrasound of endometrium Sinusitis Dysuria Right flank pain Obese Screening for hypercholesterolemia Screening for hypothyroidism Screening for diabetes mellitus (DM) Breast cancer screening Sacroiliac dysfunction Right foot pain Bilateral knee pain Lumbar back pain SOB (shortness of breath) Low iron Anemia Surgical History S/P cervical disc replacement Hx of dilation and curettage History of surgical procedure H/O gastric bypass Hx of appendectomy H/O tubal ligation Family History Family History Maternal Aunt Diabetes Liver cancer Father Diabetes Maternal Uncle Stomach cancer Social History Social History Household Members: Spouse and Children Housing: House Are you a primary care professionals to a significant other at home: No Do you presently have visiting nurse or other home services: No Alcohol intake: former Patient Tobacco Use Status: Former Tobacco user Tobacco use type: Cigarette Cigarette Packs Per Day: 0.5 e-Cigarette/Vaping Use: Never Used Second Hand Smoke Exposure: No Advance Directives: No Advance Directives Information Provided: Yes service: No Current occupational status: employed Current occupation: [employer] Cognitive needs: No Hearing needs: No Vision needs: No Physical Exam ED Exam Exam: Appearance: Alert. Oriented X3. No acute distress. Eyes: Pupils equal, round and reactive to light. ENT: Pharynx normal. Neck: Normal inspection. Neck supple. No lymph nodes noted. No crepitus CVS: Normal heart rate and rhythm. Pulses normal. Normal S1 and S2 Respiratory: No respiratory distress. Breath sounds normal. No Wheezing. No rales Abdomen: Soft and nontender. No rigidity. No distention. good BS x4 Skin: Skin warm and dry. Normal skin color. Normal skin turgor. Extremities: No lower extremity edema. Neurovascular intact to all extremities. No Lacerations. No Rash Neuro: Oriented X 3. No motor deficit. No sensory deficit. Moving all extermities. No slurred speech Vital Signs: Vital Signs - 24 hr 03/30/25 12:49 03/30/25 19:42 Temperature 97.6 F Pulse Rate 78 71 Respiratory Rate 16 18 Blood Pressure 134/62 114/61 Pulse Oximetry 98 98 Oxygen Delivery Method Nasal Cannula Room Air BMI result Body Mass Index 28.8 Course Course Course Narrative: RME, this is a rapid medical exam performed by Renzo Bailey please refer to primary provider for complete H&P- 49-year-old female presents for evaluation of low back pain, lower abdominal pain and frequency of urination. Plan for labs, urinalysis. Medications Administered Discontinued Medications Generic Name Dose Route Start Last Admin Trade Name Angie PRN Reason Stop Dose Admin Iohexol 100 ml 03/30/25 19:50 03/30/25 19:50 Iohexol 350 Mg/Ml 100 Ml Infus..Btl IV 03/30/25 19:51 85 ml ONCE ONE Administration Ketorolac Tromethamine 30 mg 03/30/25 17:46 03/30/25 20:04 Ketorolac Tromethamine 30 Mg/Ml Vial IVPUSH 03/30/25 17:47 30 mg ONCE ONE Administration Lorazepam 0.5 mg 03/30/25 17:46 03/30/25 20:04 Lorazepam 0.5 Mg Tablet PO 03/30/25 17:47 0.5 mg ONCE ONE Administration Medical Decision Making Medical Decision Making [facility] Narrative: Patient's CT scan of the abdomen pelvis showed no acute evidence of kidney stone. Patient had gastric bypass there is no obvious obstruction. No evidence of appendicitis. Has pain to the bilateral lower back. Patient's urine showed no signs of infection. test was negative there is no related issue LFTs are normal. CT scan showed no evidence of biliary disease. Question ovarian cyst noted. Patient in no distress. Pain seems more musculoskeletal. Will discharge patient home on Motrin and muscle relaxant follow-up on an outpatient basis. In stable condition. Differential Diagnosis Differential Diagnoses: The differential diagnosis associated with the presentation includes Kidney stone, abdominal aortic aneurysm, appendicitis, Admission/Observation Consideration of admission/observation: Escalation of care including admission/observation considered Symptom improved with monitoring Lab Data [facility] Lab Attestation statement: I reviewed the patient's lab results. 03/30/25 13:56 03/30/25 13:56 Labs: Lab Results 03/30/25 Range/Units 13:56 WBC 5.2 (4.8-10.8) X10*3/uL RBC 4.21 (4.20-5.50) X10*6/uL Hgb 13.0 (12.0-16.0) g/dl Hct 38.7 (37.0-47.0) % MCV 91.9 (80.0-98.0) fL MCH 30.9 (27.0-33.0) pg MCHC 33.6 (31.0-35.0) g/dl RDW 11.6 (11.0-16.0) % Plt Count 173 (160-400) X10*3/uL MPV 10.9 (9.4-12.3) fL Immature Gran % (Auto) 0.4 (0.0-0.4) % Neut % (Auto) 70.4 (45-73) % Lymph % (Auto) 19.6 L (20-40) % [place] % (Auto) 8.2 (2-11) % Eos % (Auto) 0.8 (0-4) % Baso % (Auto) 0.6 (0-2) % Lymph # (Auto) 1.0 L (1.2-4.9) X10*3/uL [place] # (Auto) 0.4 (0.1-1.2) X10*3/uL Eos # (Auto) 0.0 (0.0-0.4) X10*3/uL Baso # (Auto) 0.0 (0.0-0.2) X10*3/uL Abs Immat Gran (auto) 0.02 (0.00-0.03) X10*3/uL Absolute Neuts (auto) 3.6 (2.0-8.3) x10*3/uL Absolute Nucleated RBC 0.000 (0.0-0.012) X10*3/uL Nucleated RBC % (auto) 0.0 (0.0-0.2) /100WBC Sodium 141 (135-145) mmol/L Potassium 3.9 (3.3-5.1) mmol/L Chloride 106 (96-108) mmol/L Carbon Dioxide 28 (22-29) mmol/L Anion Gap 11 L (12-20) BUN 9 (9-16) mg/dL Creatinine 0.50 (0.5-1.4) mg/dL Estim Creat Clear Calc 171.8 Estimated GFR > 60 Random Glucose 82 (60-115) mg/dL Calcium 8.8 (8.4-10.2) mg/dL Total Bilirubin 0.9 (0.0-1.0) mg/dL AST 23 (5-31) U/L ALT 21 (0-31) U/L Alkaline Phosphatase 95 (39-117) U/L Total Protein 6.8 (6.5-8.0) g/dL Albumin 4.0 (3.5-5.0) g/dL Beta HCG, Quant < 2 mIU/mL Urine Color Yellow Urine Appearance Clear Urine pH 6.5 (5.0-9.0) Ur Specific Rembrandt 1.020 (1.005-1.025) Urine Protein Negative (Neg-Trace) mg/dL Urine Glucose (UA) Negative (Negative) mg/dL Urine Ketones Negative (Negative) mg/dL Urine Blood Negative (Negative) Urine Nitrite Negative (Negative) Ur Leukocyte Esterase Negative (Negative) Urine RBC 0-2 (0-2) /HPF Urine WBC 0-5 (0-5) /HPF Ur Squamous Epith Cells 0-2 (0-2) /HPF Urine Bacteria None Seen (None Seen) Hyaline Casts 0-2 (0-2) /LPF Independent Interpretation I performed an independent interpretation of an: CT Scan (CT scan showed no obstruction no abscess no perforation) Radiology Impression Discussion of test interpretation with radiology: I have reviewed the radiologist's reading. External Record Review External record reviewed: Outpatient record Chronic Conditions History of gastric bypass history of appendectomy Social Determinants Patient?s care significantly limited by Social Determinants of Health including: Problems related to primary support group Discharge Plan Discharge Clinical Impression: Back pain Patient Disposition: Home, Self-Care Instructions: Acute Low Back Pain (ED) Prescriptions: New cyclobenzaprine 10 mg tablet 10 mg PO TID PRN (Reason: pain) Qty: 14 0RF ibuprofen 400 mg tablet 400 mg PO Q6H PRN (Reason: pain) Qty: 20 0RF No Action ferrous sulfate 325 mg (65 mg iron) Tablet 325 mg PO DAILY Qty: 90 4RF venlafaxine [Effexor XR] 37.5 mg capsule,extended release 24hr 37.5 mg PO DAILY 30 Days Qty: 30 3RF montelukast 10 mg tablet 10 mg PO DAILY 90 Days Qty: 90 2RF cyanocobalamin (vitamin B-12) 1,000 mcg Tablet 1,000 mcg PO DAILY Qty: 90 4RF methocarbamol 750 mg tablet 1,500 mg PO Q8H PRN (Reason: pain, moderate) Qty: 24 0RF ketorolac 10 mg tablet 10 mg PO Q6H PRN (Reason: pain) Qty: 20 0RF Rx Instructions: maximum total duration of 5 days from all oral, intranasal, or parenteral formulations. The patient had an intramuscular dose of Toradol here in the emergency room Referrals: Kadeem Jones PA-C [Primary Care Provider, Internal Medicine] - 04/01/25 Print Language: Greenlandic
[2025-03-30 14:00] LABS: MANUAL DIFF FLAG NO
[2025-03-30 14:02] LABS: Hematocrit 38.7 % (37.0-47.0); Hemoglobin 13.0 g/dl (12.0-16.0); Imm Gran Abs Auto 0.02 X10*3/uL (0.00-0.03); Imm Gran Pct Auto 0.4 % (0.0-0.4); Lymphocytes Absolute Auto 1.0 X10*3/uL (1.2-4.9); Mean Corpuscular HGB Conc 33.6 g/dl (31.0-35.0); Mean Corpuscular Hemoglobin 30.9 pg (27.0-33.0); Mean Corpuscular Volume 91.9 fL (80.0-98.0); NRBC Abs Auto 0.000 X10*3/uL (0.0-0.012); NRBC Pct Auto 0.0 /100WBC (0.0-0.2); Platelet Count 173 X10*3/uL (160-400); Red Blood Count 4.21 X10*6/uL (4.20-5.50); White Blood Count 5.2 X10*3/uL (4.8-10.8)
[2025-03-30 14:03] LABS: Appearance Urine Clear; Glucose Urine UA Negative (Negative); PH 6.5 (5.0-9.0); Specific Gravity - Urine 1.020 (1.005-1.025)
[2025-03-30 14:26] LABS: Alanine Aminotransferase 21 U/L (0-31); Albumin Level 4.0 g/dL (3.5-5.0); Alkaline Phosphatase 95 U/L (39-117); Anion Gap 11 (12-20); Aspartate Amino Transferase 23 U/L (5-31); Blood Urea Nitrogen 9 mg/dL (9-16); Calcium 8.8 mg/dL (8.4-10.2); Carbon Dioxide 28 mmol/L (22-29); Chloride 106 mmol/L (96-108); Creatinine Clr Calc Pharmacy 171.8; Estimated Glomerular Filt Rate > 60; Potassium 3.9 mmol/L (3.3-5.1); Sodium 141 mmol/L (135-145); Total Protein 6.8 g/dL (6.5-8.0)
--- NOTE | 2025-03-30 17:32 | PC.NURSE ---
Pt states c/o atraumatic back pain x 2 days, pt denies urinary sx's, is found to be guarded w/ movement. Endorses bilat leg weakness but denies incontinence
[2025-03-30 19:42] VITALS: BP 114/61; PULSE 71; RESP 18; O2SAT 98
[2025-03-30] MEDS: iohexoL 350 MG/ML 100 ML INFUS..BTL IV (19:50)
[2025-03-30 21:57] VITALS: BP 114/61; PULSE 71; RESP 18; TEMP 36.6; O2SAT 98
== END 2025-03-30 22:00 | disposition home or self-care (01) ==
PROVIDERS: Physician Assistant; Emergency Provider Emergency Medicine Emergency Medical Services; PCP Physician Assistant
DX: M54.50 Low back pain, unspecified (principal); R35.0 Frequency of micturition; R10.30 Lower abdominal pain, unspecified; Z87.891 Personal history of nicotine dependence; Z79.899 Other long term (current) drug therapy
CPT/HCPCS: 36415; 74177; 80053; 81001; 84702; 85025; 96374; 99283; 99285; J1885; Q9967

== ENCOUNTER → 2025-03-30 17:46 | Outpatient (BNV) | payer OTHER, SELFPAY | PROVIDERS: Emergency Provider Emergency Medicine Emergency Medical Services; PCP Physician Assistant; Visit Provider Radiology Diagnostic Radiology | DX: K80.20 Calculus of gallbladder without cholecystitis without obstruction (principal); N83.202 Unspecified ovarian cyst, left side | CPT/HCPCS: 74177 ==

== ENCOUNTER 2025-05-01 13:45 | Outpatient (AMB) | payer OTHER, SELFPAY ==
[2025-05-01 13:56] VITALS: BMI 28.7
--- NOTE | 2025-05-01 13:56 | MHC.OFFVIS ---
Vital Signs 05/01/25 13:56 Height 5 ft 11 in Weight 206 lb BMI 28.7 Intake Visit Reasons: Newprob-Left hand EMG review-Done 02/10/25 Intake Note: Yuriy is a 49 year old right hand dominant female who presents today for a New Problem Visit complaining of Left Hand Numbness & Tingling. Patient reports she does not have any numbness or tingling. Her only complain is pain on the ulnar aspect of her left small finger and left wrist. She feels like her left hand wants to give away as if she is going to drop things. She denies any finger locking and catching of the left hand. However, she does right ring finger locking and catching. Impression 02/10/25: 1. Mild left median neuropathy across carpal tunnel 2. Mild left ulnar neuropathy across cubital tunnel Allergies oxycodone (From Percocet) Allergy (Intermediate, Verified 03/30/25 12:50) ITCHING HPI HPI Newprob-Left hand EMG review-Done 02/10/25: Details: Yuriy is a 49 year old right hand dominant female who presents today for a New Problem Visit complaining of Left Hand Numbness & Tingling. Patient reports she does not have any numbness or tingling. Her only complain is pain on the ulnar aspect of her left small finger and left wrist. She feels like her left hand wants to give away as if she is going to drop things. She denies any finger locking and catching of the left hand. Patient does state that she does have significant pain of the level of the A1 marques of the left small finger. However, she does right ring finger locking and catching. Impression 02/10/25: 1. Mild left median neuropathy across carpal tunnel 2. Mild left ulnar neuropathy across cubital tunnel [facility] Medical History Endometrial polyp Colon cancer screening Abnormal ultrasound of endometrium Sinusitis Dysuria Right flank pain Obese Screening for hypercholesterolemia Screening for hypothyroidism Screening for diabetes mellitus (DM) Breast cancer screening Sacroiliac dysfunction Right foot pain Bilateral knee pain Lumbar back pain SOB (shortness of breath) Low iron Anemia Surgical History S/P cervical disc replacement Hx of dilation and curettage History of surgical procedure H/O gastric bypass Hx of appendectomy H/O tubal ligation Family History Maternal Aunt Diabetes Liver cancer Father Diabetes Maternal Uncle Stomach cancer Social History (Updated 05/01/25 @ 14:00 by KIESHA Morin) Household Members: Spouse and Children Housing: House Are you a primary summer child caregiver to a significant other at home: No Do you presently have visiting nurse or other home services: No Alcohol intake: former Patient Tobacco Use Status: Former Tobacco user Tobacco use type: Cigarette Cigarette Packs Per Day: 0.5 e-Cigarette/Vaping Use: Never Used Second Hand Smoke Exposure: No service: No Current occupational status: employed Current occupation: [email or web address] , rt handed Cognitive needs: No Hearing needs: No Vision needs: No Female Reproductive History Menstrual Age of Menarche: 13 Physical Exam Vital Signs: BMI result Body Mass Index 28.7 Extrem Other: Patient is alert, oriented, and in no acute distress. Neuro: Normal sensation of the tips of all digits of the left hand at this time Vascular: Cap refill brisk Pain: Significant tenderness to palpation of the A1 marques of the left small finger No tenderness to palpation of the A1 marques of the left ring finger Mild tenderness to palpation of the ulnar aspect of left wrist and hypothenar eminence ROM: Patient is able to make a closed fist and extend all digits of the left hand fully and without difficulty No visible or palpable locking and catching Skin: No lacerations or abrasions. General: No ecchymosis, erythema, or evidence of infection. Psych: Appears grossly normal Affect normal Attitude cooperative Office Procedures AMB Tendon Injection Tendon Injection [id number] Tendon Sheath Injection All charges added?: Procedure code (CPT) selection complete Assessment & Plan Assessment & Plan (1) Flexor tendinitis of left little finger: Code(s): M77.8 - Other enthesopathies, not elsewhere classified Category: Medical Plan 1. Flexor tendinitis of left small finger Patient is educated about this condition Patient is educated about the treatment options available Patient would like to proceed with steroid injection at this time The risks and benefits of a steroid injection including but not limited to risk of damage to blood vessels, nerves, tendons, infection, skin bleaching, failure to improve symptoms, increased pain, and possible need for further injections or other intervention were discussed with the patient and the patient wishes to proceed with the steroid injection. Once consent was obtained, I sterilely prepped the area over the A1 marques of the flexor tendon sheath of the left small finger. I then injected the flexor tendon sheath with a combination of 1 mL of dexamethasone (4mg/ml), and 1% lidocaine. The patient tolerated the procedure well with no complications. If the patient continues to have locking and catching 4-6 weeks following this injection, they may call to schedule appointment to discuss alternative treatment options Follow-up prn Coding Level of Care Code Est Pt Level 3 (30342) Diagnoses Flexor tendinitis of left little finger M77.8 CPT Codes Tendon Injection - Tendon Injection 1: [id number] Tendon Sheath Injection ([id number])
== END 2025-05-01 14:23 | disposition home or self-care (01) ==
LOC: HO.HOS 13:46
PROVIDERS: PCP Physician Assistant
DX: M77.8 Other enthesopathies, not elsewhere classified (principal)
CPT/HCPCS: 20550; 99213

== ENCOUNTER → 2025-05-01 13:45 | Outpatient (BNVA) | payer OTHER, SELFPAY | PROVIDERS: PCP Physician Assistant | DX: M77.8 Other enthesopathies, not elsewhere classified (principal) | CPT/HCPCS: 20550; 99212; J1100; J2003 ==

== ENCOUNTER 2025-05-19 08:47 | Outpatient (REF) | payer OTHER, SELFPAY ==
[2025-05-19 10:54] LABS: Hematocrit 40.9 % (37.0-47.0); Hemoglobin 13.4 g/dl (12.0-16.0); Mean Corpuscular HGB Conc 32.8 g/dl (31.0-35.0); Mean Corpuscular Hemoglobin 30.3 pg (27.0-33.0); Mean Corpuscular Volume 92.5 fL (80.0-98.0); NRBC Abs Auto 0.000 X10*3/uL (0.0-0.012); NRBC Pct Auto 0.0 /100WBC (0.0-0.2); Platelet Count 192 X10*3/uL (160-400); Red Blood Count 4.42 X10*6/uL (4.20-5.50); White Blood Count 4.4 X10*3/uL (4.8-10.8)
[2025-05-19 12:07] LABS: Alanine Aminotransferase 28 U/L (0-31); Albumin Level 4.3 g/dL (3.5-5.0); Alkaline Phosphatase 101 U/L (39-117); Anion Gap 10 (12-20); Aspartate Amino Transferase 29 U/L (5-31); Blood Urea Nitrogen 9 mg/dL (9-16); Calcium 8.9 mg/dL (8.4-10.2); Carbon Dioxide 29 mmol/L (22-29); Chloride 108 mmol/L (96-108); Estimated Glomerular Filt Rate > 60; Iron 80 mcg/dL (30-160); Percent Iron Saturation 24 % (15-50); Potassium 4.0 mmol/L (3.3-5.1); Sodium 143 mmol/L (135-145); Total Iron Binding Capacity 329 mcg/dL (228-428); Total Protein 7.2 g/dL (6.5-8.0); Unsaturated Iron Binding 249 ug/dL
[2025-05-19 12:41] LABS: Folate 12.1 ng/mL (> or = 4.0)
[2025-05-19 13:02] LABS: Vitamin B12 457 pg/mL (200-900)
== END 2025-05-19 08:48 | disposition home or self-care (01) ==
LOC: HO.LAB 08:47
PROVIDERS: PCP Physician Assistant; Visit Provider Physician Assistant
DX: Z13.1 Encounter for screening for diabetes mellitus (principal); Z00.00 Encounter for general adult medical examination without abnormal findings; D50.9 Iron deficiency anemia, unspecified; E53.8 Deficiency of other specified B group vitamins; F41.1 Generalized anxiety disorder
CPT/HCPCS: 36415; 80053; 82306; 82607; 82746; 83540; 85027; 99396

== ENCOUNTER 2025-05-19 08:47 | Outpatient (AMB) | payer OTHER, SELFPAY ==
--- NOTE | 2025-05-19 08:56 | A.OFFPC_ITS ---
Vital Signs 05/19/25 08:57 Height 5 ft 11 in Weight 209 lb 6 oz BMI 29.2 BP 120/70 Blood Pressure Location Lt brachial Position Sitting Pulse 70 Pulse Source Pulse Oximeter Temp 97.1 F Temp Source Temporal Artery Scan Pulse Oximetry (%) 99 Oxygen Delivery Method Room Air Intake Visit Reasons: Annual Exam Intake Note: Patient is here today for a physical. 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 Patient has a past history significant iron deficiency anemia, obesity, cervical disc disease, endometrial polyp. Concern--> She reports feeling stressed and overwhelmed, with her mind being everywhere and experiencing racing thoughts, which is a new experience for her. She attributes this to having a lot on her plate, including her 's health problems and caring for her aunt. She was previously prescribed venlafaxine for depression but has stopped taking it, as she felt it was not helping and she is scared of the medication. She denies issues with sleep onset. .. Anemia: Followed by hematology , most recent CBC showing much improved hemoglobin in RBCs.? She continues on B12 and iron supplementation. She reports she feels great .. 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 Mammogram: Done in August 2024 BI-RADS 1 Vaccines: Up-to-date with COVID vaccine, tetanus vaccine, declines flu vaccine. Colon cancer screening: Colonoscopy done in 2023 normal repeat 10 years Laboratory Tests 03/30/25 13:56 RBC 4.21 Hgb 13.0 Creatinine 0.50 Beta HCG, Quant < 2 PFSH Medical History Endometrial polyp Colon cancer screening Abnormal ultrasound of endometrium Sinusitis Dysuria Right flank pain Obese Screening for hypercholesterolemia Screening for hypothyroidism Screening for diabetes mellitus (DM) Breast cancer screening Sacroiliac dysfunction Right foot pain Bilateral knee pain Lumbar back pain SOB (shortness of breath) Low iron Anemia Surgical History S/P cervical disc replacement Hx of dilation and curettage History of surgical procedure H/O gastric bypass Hx of appendectomy H/O tubal ligation Family History Maternal Aunt Diabetes Liver cancer Father Diabetes Maternal Uncle Stomach cancer Social History Household Members: Spouse and Children Housing: House Are you a primary health care specialist to a significant other at home: No Do you presently have visiting nurse or other home services: No Alcohol intake: former Patient Tobacco Use Status: Former Tobacco user Tobacco use type: Cigarette Cigarette Packs Per Day: 0.5 e-Cigarette/Vaping Use: Never Used Second Hand Smoke Exposure: Yes service: No Current occupational status: employed 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[employer] , 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 Cognitive needs: No Hearing needs: No Vision needs: No Female Reproductive History Menstrual Age of Menarche: 13 Questionnaire Thrive Questionnaire Date Thrive assessed: 12/23/24 I am a: Patient What is your living situation today?: I have a steady place to live Within the past 12 months, did the food you bought not last and you didn't have the money to get more?: Never true Within the past 12 months, did you worry whether your food would run out before you got money to buy more?: Never true Do you have trouble paying for medicines?: No Do you have trouble getting transportation to medical appointments?: No Do you have trouble paying your heating and electricity bill?: No Do you have trouble taking care of your child, family member or friend?: No Do you have trouble with day-to-day activities such as bathing, preparing meals, shopping, managing finances, etc.?: No Are you currently unemployed and looking for a job?: No Are you interested in more education?: No Please select the resources that you would like help with: None Currently or been in a relationship where the following occur: No concerns reported THRIVE Score: 0 MIRZA-7 AMB Questionnaire MIZRA-7 Date MIRZA - 7 assessed: 12/23/24 Source: Developed by Drs. Chino Cottrell, Margie Weller, Elliot Bella and colleagues, with an educational chandler from [id number]. Review of Systems Const Denies body aches, Denies chills, Denies excessive sweating, Denies fatigue, Denies fever(s) and Denies headache(s) Eyes Denies blurry vision ENT Denies dysphagia, Denies vertigo, Denies dizziness, Denies headache(s), Denies hearing loss and Denies tinnitus Card Denies chest pain, Denies chest pain with activity, Denies syncope, Denies irregular heart rhythm and Denies dyspnea Resp Denies chest congestion, Denies cough, Denies hemoptysis, Denies dyspnea and Denies wheezing GI Denies abdominal pain, Denies melena, Denies hematochezia, Denies coffee ground emesis, Denies dysphagia, Denies diarrhea, Denies nausea and Denies vomiting Denies urinary frequency, Denies dysuria, Denies urinary hesitancy and Denies urinary urgency Musc Denies arthralgias, Denies limited range of motion, Denies muscle cramps and Denies muscle weakness Skin/Breast Denies rash and Denies skin ulcer Neuro Denies Abnormal speech present, Denies confusion, Denies vertigo, Denies dizziness, Denies syncope, Denies headache(s), Denies memory loss and Denies seizure-like activity Psych Denies anxiety, Denies confusion, Denies depression, Denies memory loss, Denies panic attacks and Denies paranoia Endo Denies excessive sweating, Denies fatigue, Denies flushing, Denies polydipsia and Denies polyuria Aller/Immun Denies wheezing Physical exam (Primary Care) Vital Signs: Last Vital Signs Temp 97.1 F 05/19/25 08:57 Pulse 70 05/19/25 08:57 BP 120/70 05/19/25 08:57 Pulse Ox 99 05/19/25 08:57 Oxygen Delivery Method Room Air 05/19/25 08:57 BMI result Body Mass Index 29.2 Tobacco/Smoking Status: Tobacco use Status Tobacco use date assessed 05/19/25 05/19/25 09:01 Patient Tobacco Use Status Former Tobacco user 05/19/25 08:56 Tobacco use type Cigarette 05/19/25 08:56 e-Cigarette/Vaping Use Never Used 05/19/25 08:56 Thrive Assessment: Date of Thrive Assessment Date Thrive assessed 12/23/24 05/19/25 08:56 Currently or been in a relationship where the following occur: No concerns reported Const General: cooperative, comfortable, no acute distress, alert and awake; No confusion Orientation/consciousness: oriented to person, oriented to place, patient oriented x3 and No confusion HENMT Head: Yes normocephalic Ears: external ears normal and TM's normal bilaterally Face and sinus: No sinus tenderness Mouth: Normal oral and palatal mucosa present and tongue normal Teeth and gingiva: dentition normal and gingiva normal Throat: Yes posterior oropharynx normal, Yes tonsils normal and Yes uvula midline Eyes Conjunctivae: conjunctivae normal Sclerae: sclerae normal Pupils: Equal, round and reactive pupils present EOM: EOMs intact bilaterally Direct Ophthalmoscopy: No no photophobia Neck Neck: Yes no lymphadenopathy, No tender and Yes no JVD Thyroid: Thyroid normal Carotids: no bruits Chest Chest palpation & inspection: no tenderness Resp Effort & Inspection: normal respiratory effort, no audible wheezes, not labored and no stridor Auscultation: no crackles, no rales, no rhonchi and no wheezes Cardio Jugular venous distension: no JVD Rate: regular rate, not bradycardic and not tachycardic Rhythm: regular rhythm Bruits: no carotid bruits Peripheral pulses: Peripheral pulses 2+ throughout GI Inspection: Yes normal to inspection, No abdominal wall ecchymosis and No visible herniation Palpation (GI): Soft to palpation, nontender, no guarding, not rigid and No hepatosplenomegaly present Auscultation: normoactive bowel sounds General: Yes no CVA tenderness Back/Spine/Pelvis Back: no CVA tenderness and No back tenderness Cervical Spine: cervical ROM normal Thoracic/Lumbar Spine: thoracic and lumbar spine normal to inspection, straight leg raise negative bilaterally, No thoraco-lumbar ROM limited and No lumbar spinal tenderness Skin Lesions: no lesions Rashes: no rashes Wounds: no wounds Neuro General: oriented to person, oriented to place, patient oriented x3, CN's II-XI intact bilaterally and No confusion Cranial nerves: Yes Equal, round and reactive pupils present and Yes Normal accommodation reflex present Cognition (Neuro): normal cognition Speech: No Abnormal speech present Gait exam (Neuro): Normal gait present Motor exam (neuro): 5/5 motor strength present throughout Extrem Right upper extremity: full ROM; no cyanosis Left upper extremity: full ROM; no cyanosis Right lower extremity: no edema Left lower extremity: no edema Psych Appearance: grossly normal Mental Status: mental status grossly normal Affect: normal affect Attitude: cooperative Thought process: Normal thought process present Coding Level of Care Code Est Pt Prev Care 40-64y(38265) Diagnoses Annual physical exam Z00.00 MIRZA (generalized anxiety disorder) F41.1 Iron deficiency anemia, unspecified iron deficiency anemia type D50.9 Iron deficiency anemia type: unspecified iron deficiency Assessment & Plan Assessment & Plan (1) Annual physical exam: Code(s): Z00.00 - Encounter for general adult medical examination without abnormal findings Category: Medical Plan: As per HPI (2) MIRZA (generalized anxiety disorder): Code(s): F41.1 - Generalized anxiety disorder Category: Medical Plan: For anxiety with racing thoughts, the patient has discontinued venlafaxine as she did not find it effective and is hesitant about medication. Mental health therapy was discussed as a non-pharmacological option to manage her stress and anxiety, with telehealth being a potential modality. The patient was informed she can message through the portal if she decides to pursue therapy. The options of trying a different daily medication or an as-needed medication for acute anxiety were also mentioned, though the patient does not feel she is at that point yet. (3) Iron (Fe) deficiency anemia: Code(s): D50.9 - Iron deficiency anemia, unspecified Category: Medical Qualifiers: Iron deficiency anemia type: unspecified iron deficiency Qualified Code(s): D50.9 - Iron deficiency anemia, unspecified Plan: Patient continues with iron supplementation. She reports she feels well. Will check check iron studies and CBC to ensure stable.. Orders: Orders Comprehensive [place]. Panel Fast Today Z13.1 - Encounter for screening for diabetes mellitus IRON PROFILE Today D50.9 - Iron deficiency anemia, unspecified Vitamin B12 and Folate Today D50.9 - Iron deficiency anemia, unspecified, E53.8 - Deficiency of other specified B group vitamins Vitamin D 25-OH Total Today D50.9 - Iron deficiency anemia, unspecified Complete Blood Count no Diff Today D50.9 - Iron deficiency anemia, unspecified
[2025-05-19 08:57] VITALS: BP 120/70; PULSE 70; TEMP 36.2; O2SAT 99; BMI 29.2
== END 2025-05-19 09:44 | disposition home or self-care (01) ==
LOC: HO.HMCH 08:48
PROVIDERS: PCP Physician Assistant; Visit Provider Physician Assistant
DX: Z00.00 Encounter for general adult medical examination without abnormal findings (principal); F41.1 Generalized anxiety disorder; D50.9 Iron deficiency anemia, unspecified

== ENCOUNTER 2025-06-08 11:24 | Outpatient (AMB) | payer OTHER, SELFPAY ==
--- NOTE | 2025-06-08 11:42 | A.OFFVIS_ITS ---
Vital Signs 06/08/25 11:45 Height 5 ft 11 in Weight 209 lb BMI 29.1 Intake Visit Reasons: OV- LT SF Flexor tendinitis, inj 05/01/25 Intake Note: Yuriy is a 49 year old right hand dominant female who presents today for Follow Up of her Left Small Finger Flexor Tendinitis. She was last seen 05/01/25 where she was given a trigger finger injection. At today's visit she states that the last injection did give relief but noted that she does not want to get another injection today. Patient would like to discuss the left palm pain, she noted that ever since the last injection she has a tender to the touch sensation that runs through the palm of her hand into the left wrist. Allergies oxycodone (From Percocet) Allergy (Intermediate, Verified 05/19/25 09:18) ITCHING HPI HPI OV- LT SF Flexor tendinitis, inj 05/01/25: Details: Yuriy is a 49 year old right hand dominant female who presents today for Follow Up of her Left Small Finger Flexor Tendinitis. She was last seen 05/01/25 where she was given a trigger finger injection. At today's visit she states that the last injection did give relief but noted that she does not want to get another injection today. Patient would like to discuss the left palm pain, she noted that ever since the last injection she has a tender to the touch sensation that runs through the palm of her hand into the left wrist. Patient reports no acute injury that started this pain. Patient feels that this is likely secondary to overuse. No other acute complaints or concerns at this time. Denies numbness or tingling. [facility] Medical History Endometrial polyp Colon cancer screening Abnormal ultrasound of endometrium Sinusitis Dysuria Right flank pain Obese Screening for hypercholesterolemia Screening for hypothyroidism Screening for diabetes mellitus (DM) Breast cancer screening Sacroiliac dysfunction Right foot pain Bilateral knee pain Lumbar back pain SOB (shortness of breath) Low iron Anemia Surgical History S/P cervical disc replacement Hx of dilation and curettage History of surgical procedure H/O gastric bypass Hx of appendectomy H/O tubal ligation Family History Maternal Aunt Diabetes Liver cancer Father Diabetes Maternal Uncle Stomach cancer Social History Household Members: Spouse and Children Housing: House Are you a primary insurance healthcare consultant to a significant other at home: No Do you presently have visiting nurse or other home services: No Alcohol intake: former Patient Tobacco Use Status: Former Tobacco user Tobacco use type: Cigarette Cigarette Packs Per Day: 0.5 e-Cigarette/Vaping Use: Never Used Second Hand Smoke Exposure: Yes service: No Current occupational status: employed 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 Neuro: Normal sensation of the tips of all digits of the left hand at this time Vascular: Cap refill brisk Pain: No further tenderness to palpation of the A1 marques of the left small finger No tenderness to palpation of the A1 marques of the left ring finger Mild tenderness to palpation of the ulnar aspect of left wrist and hypothenar eminence ROM: Patient is able to make a closed fist and extend all digits of the left hand fully and without difficulty No visible or palpable locking and catching Skin: No lacerations or abrasions. General: No ecchymosis, erythema, or evidence of infection. Psych: Appears grossly normal Affect normal Attitude cooperative Assessment & Plan Assessment & Plan (1) Flexor tendinitis of left little finger: Code(s): M77.8 - Other enthesopathies, not elsewhere classified Category: Medical Plan 1. Flexor tendinitis of the left small finger Patient appears to be recovering well from this condition Patient was educated about the typical treatment and recovery course For the intermittent mild pain that she is experiencing in the left wrist, I have provided the patient with a Velcro wrist splint to be worn with the risks and particularly bothering her If patient does not experience relief of her symptoms, she should call us for reassessment of this left wrist pain Patient understands this and is amenable to this plan Follow-up as needed Coding Level of Care Code Est Pt Level 3 (44841) Diagnoses Flexor tendinitis of left little finger M77.8
[2025-06-08 11:45] VITALS: BMI 29.1
== END 2025-06-08 15:57 | disposition home or self-care (01) ==
LOC: HO.HOS 11:25
PROVIDERS: PCP Physician Assistant
DX: M77.8 Other enthesopathies, not elsewhere classified (principal)
CPT/HCPCS: 99213

== ENCOUNTER → 2025-06-08 11:24 | Outpatient (BNVA) | payer OTHER, SELFPAY | PROVIDERS: PCP Physician Assistant | DX: M77.8 Other enthesopathies, not elsewhere classified (principal) | CPT/HCPCS: 99212 ==